=== PATIENT | female | born 1950 | race Caucasian/White ===

== ENCOUNTER → 2016-11-15 | Outpatient (CLI) | payer BC, OTHER ==
[~2016-11-15] MED LIST: ACET-1311 PO; ACET500T57 PO; AMLO-110 PO; ATV5X PO; DOXY100C76 PO; LORA-741 PO; MISCCAP80 PO; NRV/5 PO; OMEG10007 PO; OREGCAP PO; PANT40TA PO; PRT/40 PO; RIVA1TAB4 PO; RIVA1TAB7 PO; TRAM-10 PO; VITAMIN D PO
== END | disposition home or self-care (01) ==
LOC: C.CPL 12:16
PROVIDERS: ATTEND Orthopaedic Surgery
DX: Z01.810 Encounter for preprocedural cardiovascular examination (principal)

== ENCOUNTER → 2016-11-22 | Outpatient (CLI) | payer BC, OTHER ==
--- NOTE | 2016-11-22 14:18 | DIAGNOSTIC IMAGING REPORT ---
CHEST 2 VIEWS ROUTINE CLINICAL HISTORY: R05 [id number] COMPARISON STUDY: 05/12/2016 FINDINGS: The cardiac and mediastinal contours are normal. There is no evidence of focal pulmonary consolidation. There is no evidence of failure. No pleural effusions are visualized.[ IMPRESSION: No active disease in the chest. Electronically signed by: Carson Suresh M.D. 11/22/2016 2:17 PM Dictated Date/Time: 11/22/2016 2:17 PM
== END | disposition home or self-care (01) ==
LOC: C.RADBC 13:57
PROVIDERS: ATTEND Internal Medicine
DX: R05 Cough (principal)

== ENCOUNTER → 2016-11-26 | Outpatient (CLI) | payer BC, OTHER ==
--- NOTE | 2016-11-26 14:56 | DIAGNOSTIC IMAGING REPORT ---
Venous Doppler right leg RIGHT VENOUS DOPP LOWER EXT UNILAT CLINICAL HISTORY: RT LEG PAIN,SWELLING,R/O DVT Right pain. Edema. TECHNIQUE: Doppler ultrasound COMPARISON STUDY: None FINDINGS: Normal venous Doppler right leg IMPRESSION: Normal venous Doppler right leg Electronically signed by: Andreas Licona M.D. 11/26/2016 2:54 PM Dictated Date/Time: 11/26/2016 2:54 PM
== END | disposition home or self-care (01) ==
LOC: C.ULTR 14:12
PROVIDERS: ATTEND Orthopaedic Surgery
DX: M79.604 Pain in right leg (principal)

== ENCOUNTER 2017-03-11 12:56 | Emergency (ER) | payer BC, OTHER ==
[~2017-03-11] VITALS: Ht 162.6 cm; Wt 79.7 kg
[~2017-03-11 12:56] MED LIST changes: -ACET500T57 PO; -ATV5X PO; -DOXY100C76 PO; -NRV/5 PO; -PRT/40 PO; -RIVA1TAB4 PO; -RIVA1TAB7 PO; -TRAM-10 PO
[2017-03-11 13:00] VITALS: TEMP 36.7; Ht 162.6 cm; Wt 79.7 kg
[2017-03-11 13:38] LABS: BASO % 0.1 %; BASO ABS # 0.01 K/uL (0-0.2); COMPLETE YES; EOS % 1.4 %; HEMATOCRIT 41.5 % (37-47); IG% 0.1 %; LYMPH % 30.4 %; LYMPH ABS # 2.37 K/uL (1.2-3.4); MEAN CELL VOLUME 90.2 fL (80-100); MEAN CORPUSCULAR HEMOGLOBIN 31.1 pg (25-34); MEAN CORPUSCULAR HGB CONC 34.5 g/dl (32-36); MEAN PLATELET VOLUME 9.4 fL (7.4-10.4); MONO % 5.4 %; NEUT % 62.6 %; PLATELET COUNT 220 K/uL (130-400); WHITE BLOOD COUNT 7.79 K/uL (4.8-10.8)
[2017-03-11 14:02] LABS: URINE APPEARANCE CLEAR (CLEAR); URINE BILIRUBIN NEG (NEG); URINE COLOR YELLOW; URINE NITRITE NEG (NEG); UROBILINOGEN NEG (NEG); ZZUR CULT IF INDIC CLEAN CATCH NO
[2017-03-11 14:04] LABS: ALKALINE PHOSPHATASE 105 U/L (45-117); ALT/SGPT 47 U/L (12-78); BLOOD UREA NITROGEN 15 mg/dl (7-18); BUN/CREATININE RATIO 18.8 (10-20); CARBON DIOXIDE 26 mmol/L (21-32); CHLORIDE 105 mmol/L (98-107); GLUCOSE 106 mg/dl (70-99); SODIUM 140 mmol/L (136-145)
[2017-03-11 14:09] LABS: MANUAL MICROSCOPIC REQUIRED? NO; REVIEW REQ? NO
--- NOTE | 2017-03-11 14:22 | DIAGNOSTIC IMAGING REPORT ---
CT OF THE ABDOMEN AND PELVIS WITHOUT CONTRAST, STONE PROTOCOL CLINICAL HISTORY: Right flank pain. COMPARISON STUDY: CT of the abdomen and pelvis February 15, 2015. TECHNIQUE: Helical axial images of the abdomen and pelvis were obtained without IV or oral contrast according to renal stone protocol. FINDINGS: Fatty infiltration of the liver is noted with areas of sparing. Unenhanced images of the spleen, adrenal glands and pancreas are normal. There is no hydronephrosis. There are no ureteral calculi. There is a possible punctate calculus within the midpole of the right kidney. Postsurgical findings within the spine are noted. This colonic diverticulosis without evidence for acute diverticulitis. The appendix is normal. There is no free fluid. There is no lymphadenopathy. There are suspected postsurgical findings at the base of the bladder. This is unchanged. The ovaries are unchanged in appearance. There is no evidence for a bowel obstruction. There is a small fat-containing umbilical hernia. There are no suspicious osseous lesions. IMPRESSION: 1. No hydronephrosis or ureteral calculi. Possible punctate right renal calculus. 2. Colonic diverticulosis without evidence for acute diverticulitis. Normal appendix. 3. No bowel obstruction. 4. Fatty liver. Electronically signed by: Dylan Saleh M.D. 03/11/2017 2:20 PM Dictated Date/Time: 03/11/2017 2:12 PM
[2017-03-11 15:20] LABS: CALCIUM 8.8 mg/dl (8.5-10.1)
--- NOTE | 2017-03-11 19:02 | DIAGNOSTIC IMAGING REPORT ---
ULTRASOUND VENOUS DOPPLER LWR EXT BILA CLINICAL HISTORY: Leg swelling COMPARISON STUDY: 11/26/2016, 09/14/2007 FINDINGS: On the right, no intraluminal thrombus was visualized. The veins were fully compressible from the groin to the popliteal vein. There was normal color-flow within the proximal trifurcation veins of the right calf. On the left, no thrombus was visualized within the common femoral superficial femoral or popliteal veins. No thrombus was identified within the posterior tibial, or anterior tibial veins. There is thrombus within one of the paired peroneal veins. IMPRESSION: 1. No evidence of right lower extremity DVT 2. Left calf peroneal vein thrombus. Electronically signed by: Carson Suresh M.D. 03/11/2017 7:00 PM Dictated Date/Time: 03/11/2017 6:57 PM
[2017-03-11] MEDS ORDERED: LORAZEPAM 2 MG/ML 1 ML VIAL IV STA (19:15)
--- NOTE | 2017-03-11 20:30 | DIAGNOSTIC IMAGING REPORT ---
NUCLEAR MEDICINE VENTILATION/PERFUSION STUDY. CLINICAL HISTORY: Right-sided chest pain, positive d-dimer, calf DVT. COMPARISON STUDY: Chest x-ray dated 11/22/2016 FINDINGS: The patient was ventilated utilizing 29.2 mCi of technetium 99m DTPA aerosol. The patient was perfused utilizing 6 mCi of technetium 99m MAA. There are small peripheral right bite perfusion defects most pronounced within the left lung. Given their small size it is difficult to determine whether these are matched. There are no large VQ mismatches. This examination is of intermediate probability for pulmonary embolism. IMPRESSION: Intermediate probability of acute pulmonary embolism. Electronically signed by: Carson Suresh M.D. 03/11/2017 8:28 PM Dictated Date/Time: 03/11/2017 8:26 PM
[2017-03-11] MEDS ORDERED: RIVAROXABAN TAB 15 MG TAB PO STA (20:48)
[2017-03-11] MEDS ORDERED: RIVA1TAB7 PO (20:54)
[2017-03-11] MEDS ORDERED: TRAM-10 PO (20:54)
--- NOTE | 2017-03-11 20:59 | EMERGENCY ROOM VISIT NOTE ---
History Report prepared by Arnoldo: Grace Guerin Under the Supervision of: Dr. Jefry Tovar M.D. First contact with patient: 13:09 Chief Complaint: ABDOMINAL PAIN Stated Complaint: POSSIBLE KIDNEY STONE History of Present Illness The patient is a 66 year old female who presents to the Emergency Room with complaints of waxing and waning right flank pain starting a few days ago. She reports nausea but denies vomiting. She reports the nausea has improved. She currently reports only minimal pain. She currently describes her pain to be cramping. She has a history of muscle spasms in the back but denies any similar symptoms today. She has some improvement in her symptoms with lying down flat. She has worsening pain with movement. The patient denies any history of kidney stones. She has been having some difficulty breathing with exertion but suspects it may be due to the recent weight gain and lack of exercise over the past few months. She denies any worsening pain with deep breathing. The patient also reports increased tiredness. The patient had knee surgery in November and reduced the amount of normal activity. Pt denies any recent trauma, LOC, headache, fevers, chills, diaphoresis, visual changes, neck pain, chest pain, melena, hematochezia, urinary symptoms, numbness, weakness, lymphadenopathy, rash, or other complaints. Source of History: patient Onset: a few days ago Position: other (right flank pain) Symptom Intensity: minimal Quality: cramping Timing: waxes/wanes Modifying Factors (Worsening): movement Modifying Factors (Relieving): other (lying down flat) Associated Symptoms: + SOB, + nausea Review of Systems See HPI for pertinent positives and negatives. A total of ten systems were reviewed and were otherwise negative. Past Medical & Surgical Medical Problems: (1) bladder sling (2) Lumbar decompression Surgical Problems: (1) H/O: hysterectomy Family History No significant family history Social History Smoking Status: Never Smoker Alcohol Use: occasionally Marital Status: Housing Status: lives with significant other Occupation Status: employed Current/Historical Medications Scheduled Amlodipine (Norvasc), 5 MG PO QAM Fish Oil ([place]-3), 1 CAP PO QAM Oregano (Oil Of Oregano), 1 CAP PO QAM Pantoprazole (Protonix), 40 MG PO QAM Probiotic Product (Probiotic), 1 CAP PO QAM Rivaroxaban (Xarelto Starter Pack 15 & 20 mg), 1 TAB PO UD Scheduled PRN Acetaminophen (Tylenol), 650 MG PO Q6 PRN for Pain Lorazepam (Ativan), 0.5 MG PO HS PRN for Sleep Tramadol (Ultram), 50 MG PO Q4H PRN for Pain Allergies Coded Allergies: Ciprofloxacin (Verified Adverse Reaction, Unknown, NAUSEA, UPSET STOMACH, 03/11/17) NSAIDs (Verified Adverse Reaction, Unknown, GI UPSET, 03/11/17) CAN TAKE TYLENOL Uncoded Nonscreenable Allergen (Verified Adverse Reaction, Unknown, HYPERSENSITIVITY TO A LIST OF DRUGS, 03/11/17) PT HYPERSENSITIVE TO KESHAWN NARCOTIC PAIN MEDICATIONS AMONG A LIST OF OTHERS. PT CAN NOT LIST ALL OF THEM Physical Exam Vital Signs Date Time Temp Pulse Resp B/P (MAP) Pulse Ox O2 Delivery O2 Flow Rate FiO2 03/11/17 18:25 7 16 165/110 97 Room Air 03/11/17 18:00 88 16 156/106 94 Room Air 03/11/17 17:05 81 16 146/98 97 Room Air 03/11/17 16:06 90 20 150/105 94 Room Air 03/11/17 14:56 81 20 132/96 85 139/99 87 132/99 03/11/17 13:00 36.7 95 18 148/96 96 Room Air Physical Exam GENERAL: Awake, alert, mildly uncomfortable-appearing, in no distress HENT: Normocephalic, atraumatic. Oropharynx unremarkable. EYES: Normal conjunctiva. Sclera non-icteric. NECK: Supple. No nuchal rigidity. FROM. No JVD. RESPIRATORY: Clear to auscultation. CARDIAC: Regular rate, normal rhythm. Extremities warm and well perfused. Pulses equal. ABDOMEN: Soft, non-distended. No tenderness to palpation. No rebound or guarding. No masses. RECTAL: Deferred. MUSCULOSKELETAL: Chest examination reveals no tenderness. The back is symmetrical on inspection without obvious abnormality. Right CVA tenderness to palpation. No joint edema. LOWER EXTREMITIES: Calves are equal size bilaterally and non-tender. No edema. No discoloration. NEURO: Normal sensorium. No sensory or motor deficits noted. SKIN: No rash or jaundice noted. Medical Decision & Procedures ER Provider Diagnostic Interpretation: CT US: Radiology results as stated below per my review and radiologist interpretation ULTRASOUND VENOUS DOPPLER LWR EXT BILA CLINICAL HISTORY: Leg swelling COMPARISON STUDY: 11/26/2016, 09/14/2007 FINDINGS: On the right, no intraluminal thrombus was visualized. The veins were fully compressible from the groin to the popliteal vein. There was normal color-flow within the proximal trifurcation veins of the right calf. On the left, no thrombus was visualized within the common femoral superficial femoral or popliteal veins. No thrombus was identified within the posterior tibial, or anterior tibial veins. There is thrombus within one of the paired peroneal veins. IMPRESSION: 1. No evidence of right lower extremity DVT 2. Left calf peroneal vein thrombus. Electronically signed by: Carson Suresh M.D. 03/11/2017 7:00 PM Dictated Date/Time: 03/11/2017 6:[address] OF THE ABDOMEN AND PELVIS WITHOUT CONTRAST, STONE PROTOCOL CLINICAL HISTORY: Right flank pain. COMPARISON STUDY: CT of the abdomen and pelvis February 15, 2015. TECHNIQUE: Helical axial images of the abdomen and pelvis were obtained without IV or oral contrast according to renal stone protocol. FINDINGS: Fatty infiltration of the liver is noted with areas of sparing. Unenhanced images of the spleen, adrenal glands and pancreas are normal. There is no hydronephrosis. There are no ureteral calculi. There is a possible punctate calculus within the midpole of the right kidney. Postsurgical findings within the spine are noted. This colonic diverticulosis without evidence for acute diverticulitis. The appendix is normal. There is no free fluid. There is no lymphadenopathy. There are suspected postsurgical findings at the base of the bladder. This is unchanged. The ovaries are unchanged in appearance. There is no evidence for a bowel obstruction. There is a small fat-containing umbilical hernia. There are no suspicious osseous lesions. IMPRESSION: 1. No hydronephrosis or ureteral calculi. Possible punctate right renal calculus. 2. Colonic diverticulosis without evidence for acute diverticulitis. Normal appendix. 3. No bowel obstruction. 4. Fatty liver. Electronically signed by: Dylan Saleh M.D. 03/11/2017 2:20 PM Dictated Date/Time: 03/11/2017 2:12 PM NUCLEAR MEDICINE VENTILATION/PERFUSION STUDY. CLINICAL HISTORY: Right-sided chest pain, positive d-dimer, calf DVT. COMPARISON STUDY: Chest x-ray dated 11/22/2016 FINDINGS: The patient was ventilated utilizing 29.2 mCi of technetium 99m DTPA aerosol. The patient was perfused utilizing 6 mCi of technetium 99m MAA. There are small peripheral right bite perfusion defects most pronounced within the left lung. Given their small size it is difficult to determine whether these are matched. There are no large VQ mismatches. This examination is of intermediate probability for pulmonary embolism. IMPRESSION: Intermediate probability of acute pulmonary embolism. Laboratory Results 03/11/17 13:17 Red Blood Count 4.60, Mean Corpuscular Volume 90.2, Mean Corpuscular Hemoglobin 31.1, Mean Corpuscular Hemoglobin Concent 34.5, Mean Platelet Volume 9.4, Neutrophils (%) (Auto) 62.6, Lymphocytes (%) (Auto) 30.4, Monocytes (%) (Auto) 5.4, Eosinophils (%) (Auto) 1.4, Basophils (%) (Auto) 0.1, Neutrophils # (Auto) 4.87, Lymphocytes # (Auto) 2.37, Monocytes # (Auto) 0.42, Eosinophils # (Auto) 0.11, Basophils # (Auto) 0.01 03/11/17 13:17 Test 03/11/17 13:17 03/11/17 15:24 White Blood Count 7.79 K/uL (4.8-10.8) Red Blood Count 4.60 M/uL (4.2-5.4) Hemoglobin 14.3 g/dL (12.0-16.0) Hematocrit 41.5 % (37-47) Mean Corpuscular Volume 90.2 fL (80-100) Mean Corpuscular Hemoglobin 31.1 pg (25-34) Mean Corpuscular Hemoglobin Concent 34.5 g/dl (32-36) Platelet Count 220 K/uL (130-400) Mean Platelet Volume 9.4 fL (7.4-10.4) Neutrophils (%) (Auto) 62.6 % Lymphocytes (%) (Auto) 30.4 % Monocytes (%) (Auto) 5.4 % Eosinophils (%) (Auto) 1.4 % Basophils (%) (Auto) 0.1 % Neutrophils # (Auto) 4.87 K/uL (1.4-6.5) Lymphocytes # (Auto) 2.37 K/uL (1.2-3.4) Monocytes # (Auto) 0.42 K/uL (0.11-0.59) Eosinophils # (Auto) 0.11 K/uL (0-0.5) Basophils # (Auto) 0.01 K/uL (0-0.2) RDW Standard Deviation 41.8 fL (36.4-46.3) RDW Coefficient of Variation 12.7 % (11.5-14.5) Immature Granulocyte % (Auto) 0.1 % Immature Granulocyte # (Auto) 0.01 K/uL (0.00-0.02) Urine Color YELLOW Urine Appearance CLEAR (CLEAR) Urine pH 6.0 (4.5-7.5) Urine Specific Points 1.010 (1.000-1.030) Urine Protein NEG (NEG) Urine Glucose (UA) NEG (NEG) Urine Ketones NEG (NEG) Urine Occult Blood NEG (NEG) Urine Nitrite NEG (NEG) Urine Bilirubin NEG (NEG) Urine Urobilinogen NEG (NEG) Urine Leukocyte Esterase NEG (NEG) Anion Gap 9.0 mmol/L (3-11) Est Creatinine Clear Calc Drug Dose 72.6 ml/min Estimated GFR () 90.3 Estimated GFR (Non- 77.9 BUN/Creatinine Ratio 18.8 (10-20) Calcium Level 8.8 mg/dl (8.5-10.1) Total Bilirubin 0.5 mg/dl (0.2-1) Direct Bilirubin mg/dl (0-0.2) Aspartate Amino Transf (AST/SGOT) U/L (15-37) Alanine Aminotransferase (ALT/SGPT) 47 U/L (12-78) Alkaline Phosphatase 105 U/L (45-117) Total Protein 8.1 gm/dl (6.4-8.2) Albumin 3.8 gm/dl (3.4-5.0) Lipase 282 U/L (73-393) Bedside D-Dimer > 450 ng/mlFEU (0-450) Laboratory results reviewed by me Medications Administered Medications (Trade) Dose Ordered Sig/Jennie Route Start Time Stop Time Status Last Admin Dose Admin Lorazepam (Ativan Inj) 0.5 mg NOW STAT IV 03/11/17 19:15 03/11/17 19:16 DC 03/11/17 19:23 0.5 MG Rivaroxaban (Xarelto Tab) 15 mg NOW STAT PO 03/11/17 20:48 03/11/17 20:51 DC 03/11/17 21:02 15 MG Tramadol HCl (Ultram Home Pack) 1 [facility] UD ONCE PO 03/11/17 21:00 03/11/17 21:01 DC 03/11/17 21:03 1 [facility] ED Course 1309: The patient was evaluated in room C02B. A complete history and physical exam was performed. Medication Reconciliation: I attest that I have personally reviewed the patient' s current medication list Blood pressure screening: Patient was found to have an elevated blood pressure and was referred to their primary doctor for recheck and further treatment. 0: I reevaluated the patient. I had a long conversation about the patient because she refused the CT scan. She has a family history of stroke. I talked to radiology who reported that a VQ scan could be performed at 7 pm. She is agreeable to doing the VQ scan. 1914: Ativan Inj 0.5 mg IV. I reevaluated the patient. She is agreeable to a VQ scan. 0: The patient was reassessed. She is feeling much better. Discussed treatment with Xarelto as an outpatient. Also discussed minimal use of tramadol for pain control. The patient was in agreement. She will follow up with primary office tomorrow to set up follow-up appointment. I did discuss risks and benefits of anticoagulation. I gave my usual and customary discussion regarding this issue. Return instructions were outlined and the patient was discharged in stable condition. 2106: Reassessed patient just prior to discharge to answer several questions for her. She is comfortable at this time with the treatment plan and will follow-up promptly in the office for continued management and ongoing care of the current issues. Medical Decision Triage Nursing notes reviewed. The patient's presentation and history were concerning for flank pain. Etiologies such as renal colic, appendicitis, diverticulitis, mesenteric ischemia, aortic pathology, infections, inflammatory bowel disease, PUD, biliary pathology, UTI, PE as well as others were entertained. The patient was evaluated. She came in complaining of possible kidney stone and flank pain. Her symptoms seemed somewhat muscular in nature and she denied any significant pulmonary symptoms. She underwent blood work, urinalysis and imaging. Her CBC, chemistry panel, LFTs, lipase and urinalysis were unremarkable. Her CT scan did reveal a punctate right renal calculus but did not reveal any evidence of ureterolithiasis. On further discussion the patient does note some shortness of breath but the like she was deconditioned from her surgery several months ago. The patient did not have any stigmata of DVT and it was felt that a screening d-dimer would be very reasonable as she had normal vital signs. The patient had a positive d-dimer. This necessitated further workup. The patient was adamantly opposed to a CT pulmonary angiogram because of fears of a anaphylactic-like reaction to the dye. I spent a significant amount of time talking with her and she would not agree to the CT PE study. I was able to get her to agree to a ultrasound and VQ scan after lengthy discussion. The ultrasound was performed and did reveal a clot in the peroneal vein. Because of this the patient was then agreeable to VQ scan. This was indeterminate probability. As she is hemodynamically stable and desires discharge she would be a good candidate for xarelto. I discussed this at length with the patient and her . The patient was given a information starter pack. She was started on 15 mg and was given a prescription for the starter pack. The patient was given a tramadol home pack and prescription was sent as she did request something for pain if she has increased discomfort. As she has no significant pulmonary symptoms and minimal findings on ultrasonography the patient is an excellent candidate for outpatient treatment. Again the back symptoms seemed to be more musculoskeletal. If the patient worsens in any way she will be back to the emergency department. Bleeding precautions were given. The patient was told to stay away from any NSAIDs and aspirin. She has no other contraindications to the medication. I gave my usual and customary discussion regarding this issue. Impression Primary Impression: Blood clot in vein Additional Impressions: Indeterminate ventilatory defect Right flank pain Scribe Attestation The scribe's documentation has been prepared under my direction and personally reviewed by me in its entirety. I confirm that the note above accurately reflects all work, treatment, procedures, and medical decision making performed by me. Departure Information Dispostion Home / Self-Care Prescriptions Tramadol (Ultram) 50 Mg Tab 50 MG PO Q4H Y for Pain, #14 TAB Prov: Jefry Tovar MD 03/11/17 Rivaroxaban (Xarelto Starter Pack 15 & 20 mg) 1 Tab Tab 1 TAB PO UD for 30 Days, #1 BOX Prov: Jefry Tovar MD 03/11/17 Referrals Brooks Roberts M.D. (PCP) Patient Instructions ED DVT, Embolism Pulmonary Dc, My [facility] Additional Instructions Start the Xarelto blood thinner as discussed. It is 15 mg twice a day for 21 days. After this started 20 mg once a day and then this should be continued by your primary physician for treatment. Warm compresses for 20 minutes at a time four times daily for 2-3 days. Tylenol: Take 1000 mg every 6 hours as needed for pain. Do not take more than 3000 mg in a 24 hour period. Tramadol 50 mg: Take one pill every four hours as needed for breakthrough pain. Avoid alcohol, operating machinery or dangerous equipment, working on ladders or roofs, DRIVING, or situations where being under the influence may be dangerous. It is recommended to use a stool softener such as Colace, 100mg twice daily while taking this medication to avoid constipation. Review the package insert for all your medications. This is necessary as important health information is provided for your benefit and current care. Continue current medications. Return to the ER for worsening back pain, bleeding problems, chest pain, difficulty breathing, fevers, vomiting, worsening of your condition, or as needed. Follow-up with your primary physician tomorrow to establish follow-up care. Work Instructions Return To Work: 3 days Problem Qualifiers
[2017-03-11] MEDS ORDERED: TRAMADOL HCL 50 MG HOME PACK PO ONE (21:00)
[2017-03-11 21:03] VITALS: BP 156/112; PULSE 89; O2SAT 95
[2017-05-11] MEDS ORDERED: PANT40TA2 PO (21:38)
== END 2017-03-11 21:14 | disposition home or self-care (01) ==
LOC: C.EDB 12:58 → C.EDC 21:14
DX: I82.812 Embolism and thrombosis of superficial veins of left lower extremity (principal); J98.4 Other disorders of lung; R10.9 Unspecified abdominal pain; Z79.899 Other long term (current) drug therapy

== ENCOUNTER → 2017-03-15 | Outpatient (CLI) | payer OTHER ==
[~2017-03-15] MED LIST changes: +ACET500T57 PO; +ATV5X PO; +DOXY100C76 PO; +NRV/5 PO; +PANT40TA2 PO; +RIVA1TAB4 PO; +RIVA1TAB7 PO; +TRAM-10 PO; -VITAMIN D PO
[2017-03-18 01:39] LABS: LUPUS ANTICOAGULANT** TC36573X Negative (Negative)
== END | disposition home or self-care (01) ==
LOC: C.LAB 11:49
PROVIDERS: ATTEND Internal Medicine Hematology
DX: D68.59 Other primary thrombophilia (principal)

== ENCOUNTER → 2017-04-08 | Outpatient (CLI) | payer OTHER ==
[~2017-04-08] MED LIST changes: -PANT40TA2 PO; +PRT/40 PO
--- NOTE | 2017-04-08 12:41 | DIAGNOSTIC IMAGING REPORT ---
HEAD WITHOUT CONTRAST (CT) HISTORY: I82.409 DVT of leg (deep venous thrombosis)R51 [id number] TECHNIQUE: Multiple axial CT images of the head were obtained without contrast. COMPARISON: MRI brain 02/26/2010. FINDINGS: No acute intracranial hemorrhage, midline shift, mass, large territorial ischemia or abnormal extra-axial collection. There is mild central atrophy. Patchy areas of low-attenuation are seen within the periventricular white matter of the cerebral hemispheres bilaterally. There is somewhat increased attenuation of the vessels at the level of the [place] symmetrically suggesting hemoconcentration. The calvarium is intact. The paranasal sinuses, mastoid air cells, and middle ear cavities are clear. IMPRESSION: 1. No acute intracranial abnormality. 2. Age-related changes of mild cerebral atrophy and chronic microvascular ischemic changes. Electronically signed by: Toribio Coronel 04/08/2017 12:40 PM Dictated Date/Time: 04/08/2017 12:36 PM
== END | disposition home or self-care (01) ==
LOC: C.CTS 11:56
PROVIDERS: ATTEND Internal Medicine
DX: I82.409 Acute embolism and thrombosis of unspecified deep veins of unspecified lower extremity (principal); R51 Headache; Z79.01 Long term (current) use of anticoagulants

== ENCOUNTER → 2017-05-02 | Outpatient (CLI) | payer OTHER ==
--- NOTE | 2017-05-02 15:42 | MAMMOGRAPHY REPORT ---
BILATERAL DIGITAL SCREENING MAMMOGRAM WITH CAD: 05/02/2017 CLINICAL HISTORY: Routine screening. TECHNIQUE: Bilateral CC and MLO views were obtained. Current study was also evaluated with a Compute r Aided Detection (CAD) system. COMPARISON: Comparison is made to exams dated: 02/25/2016 mammogram, 10/09/2014 mammogram, 07/04/2013 ma mmogram, 06/07/2012 mammogram, 06/02/2011 mammogram, and 06/03/2010 mammogram - [facility] er. BREAST COMPOSITION: There are scattered areas of fibroglandular density in both breasts. FINDINGS: There are stable benign-appearing left breast calcifications. No new suspicious mass, arch itectural distortion or cluster of microcalcifications is seen. IMPRESSION: ACR BI-RADS CATEGORY 1: NEGATIVE There is no mammographic evidence of malignancy. A 1 year screening mammogram is recommended. The pa tient will receive written notification of the results. Approximately 10% of breast cancers are not detected with mammography. A negative mammographic report should not delay biopsy if a clinically suggestive mass is present. Angela Renae M.D. ay/:05/02/2017 14:45:00 Decision Unit Rn: Pilo Aquino RT(R)(M), [facility] letter sent: Normal 1/2 BI-RADS Code: ACR BI-RADS Category 1: Negative
== END | disposition home or self-care (01) ==
LOC: C.MAMM 14:21
PROVIDERS: ATTEND Internal Medicine
DX: Z12.31 Encounter for screening mammogram for malignant neoplasm of breast (principal)

== ENCOUNTER 2017-05-11 19:36 | Observation (INO) | payer BC, OTHER ==
[~2017-05-11] VITALS: Ht 162.6 cm; Wt 76.5 kg
[~2017-05-11 19:36] MED LIST changes: -ACET500T57 PO; -ATV5X PO; -DOXY100C76 PO; -NRV/5 PO; -PRT/40 PO; -RIVA1TAB4 PO
[2017-05-11 19:38] VITALS: Ht 162.6 cm; Wt 76.5 kg
[2017-05-11] MEDS ORDERED: ACETAMINOPHEN IV 100 ML IV STA (20:08)
[2017-05-11] MEDS ORDERED: PROMETHAZINE HCL INJ 25 MG in SODIUM CHLORIDE 0.9% 50ML 50 ML IV STA (20:12)
[2017-05-11 20:18] LABS: BASO % 0.1 %; BASO ABS # 0.01 K/uL (0-0.2); COMPLETE YES; EOS % 0.5 %; HEMATOCRIT 40.4 % (37-47); IG% 0.1 %; LYMPH % 41.2 %; LYMPH ABS # 3.39 K/uL (1.2-3.4); MEAN CELL VOLUME 89.6 fL (80-100); MEAN CORPUSCULAR HEMOGLOBIN 30.6 pg (25-34); MEAN CORPUSCULAR HGB CONC 34.2 g/dl (32-36); MEAN PLATELET VOLUME 8.9 fL (7.4-10.4); MONO % 6.7 %; NEUT % 51.4 %; PLATELET COUNT 210 K/uL (130-400); RED BLOOD COUNT 4.51 M/uL (4.2-5.4); WHITE BLOOD COUNT 8.22 K/uL (4.8-10.8)
[2017-05-11 20:24] LABS: URINE APPEARANCE CLEAR (CLEAR); URINE BILIRUBIN NEG (NEG); URINE COLOR YELLOW; URINE NITRITE NEG (NEG); URINE SPECIFIC GRAVITY 1.009 (1.000-1.030); UROBILINOGEN NEG (NEG)
[2017-05-11 20:28] LABS: ISTAT CREATININE 0.6 mg/dl (0.6-1.3); ISTAT HEMOGLOBIN 13.9 g/dl (12.0-16.0); ISTAT IONIZED CALCIUM 1.13 mmol/l (1.12-1.32)
[2017-05-11 20:36] LABS: BUN/CREATININE RATIO 14.9 (10-20); CALCIUM 8.9 mg/dl (8.5-10.1); CREATININE 0.73 mg/dl (0.60-1.20); POTASSIUM 3.8 mmol/L (3.5-5.1)
[2017-05-11 20:47] LABS: THYROID STIMULATING HORMONE 0.931 uIu/ml (0.300-4.500)
[2017-05-11 20:55] LABS: MANUAL MICROSCOPIC REQUIRED? NO; REVIEW REQ? NO
--- NOTE | 2017-05-11 21:13 | DIAGNOSTIC IMAGING REPORT ---
CHEST ONE VIEW PORTABLE CLINICAL HISTORY: severe hypertension COMPARISON STUDY: 11/22/2016 FINDINGS: The cardiac and mediastinal contours are normal. There is no evidence of focal pulmonary consolidation. There is no evidence of failure. No pleural effusions are visualized.[ There is an opacity at the level of the left cardiophrenic angle which is felt to represent a fat pad and or atelectatic change. IMPRESSION: No active disease in the chest. Electronically signed by: Carson Suresh M.D. 05/11/2017 9:12 PM Dictated Date/Time: 05/11/2017 9:12 PM
--- NOTE | 2017-05-11 21:13 | DIAGNOSTIC IMAGING REPORT ---
CT HEAD WITHOUT CONTRAST (CT) CLINICAL HISTORY: Severe headache. Patient on anticoagulation. COMPARISON STUDY: 04/08/2017 TECHNIQUE: Axial CT of the brain is performed from the vertex to the skull base. IV contrast was not administered for this examination. A dose lowering technique was utilized adhering to the principles of ALARA. CT DOSE: 537.48 mGy.cm FINDINGS: No intra or extra-axial mass lesions are visualized. There is no CT evidence of acute cortical infarction. There is no evidence of midline shift. There is no acute hemorrhage. No calvarial fractures are visualized. There are moderate white matter hypodensities likely on a small vessel basis. There is no evidence of pathologic ventricular dilatation. There is no evidence of acute sinusitis IMPRESSION: No acute intracranial findings Electronically signed by: Carson Suresh M.D. 05/11/2017 9:11 PM Dictated Date/Time: 05/11/2017 9:10 PM
[2017-05-11 21:17] LABS: INR 1.1 (0.9-1.1); PARTIAL THROMBOPLASTIN RATIO 1.2; PROTHROMBIN TIME (PATIENT) 11.4 SECONDS (9.0-12.0)
[2017-05-11] MEDS ORDERED: ATV5X PO (21:38)
[2017-05-11] MEDS ORDERED: RIVA1TAB4 PO (21:38)
[2017-05-11] MEDS ORDERED: NRV/5 PO (21:38)
[2017-05-11] MEDS ORDERED: PRT/40 PO (21:38)
[2017-05-11] MEDS ORDERED: ACET500T57 PO (21:40)
[2017-05-11] MEDS ORDERED: LORAZEPAM 2 MG/ML 1 ML VIAL IV STA (22:05)
[2017-05-11] MEDS ORDERED: FENTANYL CITRATE INJ 50 MCG/1 ML 2 ML VIAL IV STA (23:19)
--- NOTE | 2017-05-11 23:58 | Medical Consult ---
Consultation Date of Consultation: May 11, 2017. Attending Physician: Past Medical/Surgical History Medical Problems: (1) Blood clot in vein Status: Acute (2) Indeterminate ventilatory defect Status: Acute (3) Right flank pain Status: Acute Family History No significant family history Social History Smoking Status: Former Smoker Marital Status: Housing Status: lives with significant other Occupation Status: employed Allergies Coded Allergies: Ciprofloxacin (Verified Adverse Reaction, Unknown, NAUSEA, UPSET STOMACH, 03/11/17) NSAIDs (Verified Adverse Reaction, Unknown, GI UPSET, 03/11/17) CAN TAKE TYLENOL Uncoded Nonscreenable Allergen (Verified Adverse Reaction, Unknown, HYPERSENSITIVITY TO A LIST OF DRUGS, 03/11/17) PT HYPERSENSITIVE TO KESHAWN NARCOTIC PAIN MEDICATIONS AMONG A LIST OF OTHERS. PT CAN NOT LIST ALL OF THEM Physical Exam Date Time Temp Pulse Resp B/P (MAP) Pulse Ox O2 Delivery O2 Flow Rate FiO2 05/11/17 23:42 90 18 143/106 93 Room Air 05/11/17 23:10 94 18 131/108 96 Room Air 05/11/17 21:28 94 156/105 95 05/11/17 21:28 95 Room Air 05/11/17 19:38 36.8 95 18 170/112 95 Room Air Laboratory Results Last 24 Hours Test 05/11/17 20:00 05/11/17 20:15 White Blood Count 8.22 K/uL Red Blood Count 4.51 M/uL Hemoglobin 13.8 g/dL Hematocrit 40.4 % Mean Corpuscular Volume 89.6 fL Mean Corpuscular Hemoglobin 30.6 pg Mean Corpuscular Hemoglobin Concent 34.2 g/dl Platelet Count 210 K/uL Mean Platelet Volume 8.9 fL Neutrophils (%) (Auto) 51.4 % Lymphocytes (%) (Auto) 41.2 % Monocytes (%) (Auto) 6.7 % Eosinophils (%) (Auto) 0.5 % Basophils (%) (Auto) 0.1 % Neutrophils # (Auto) 4.22 K/uL Lymphocytes # (Auto) 3.39 K/uL Monocytes # (Auto) 0.55 K/uL Eosinophils # (Auto) 0.04 K/uL Basophils # (Auto) 0.01 K/uL RDW Standard Deviation 41.6 fL RDW Coefficient of Variation 12.8 % Immature Granulocyte % (Auto) 0.1 % Immature Granulocyte # (Auto) 0.01 K/uL Prothrombin Time 11.4 SECONDS Prothromb Time International Ratio 1.1 Activated Partial Thromboplast Time 30.7 SECONDS Partial Thromboplastin Ratio 1.2 Urine Color YELLOW Urine Appearance CLEAR Urine pH 8.0 Urine Specific [place] 1.009 Urine Protein NEG Urine Glucose (UA) NEG Urine Ketones NEG Urine Occult Blood NEG Urine Nitrite NEG Urine Bilirubin NEG Urine Urobilinogen NEG Urine Leukocyte Esterase NEG Sodium Level 140 mmol/L Potassium Level 3.8 mmol/L Chloride Level 104 mmol/L Carbon Dioxide Level 29 mmol/L Anion Gap 7.0 mmol/L 16.0 mmol/L Blood Urea Nitrogen 11 mg/dl Creatinine 0.73 mg/dl Est Creatinine Clear Calc Drug Dose 78.9 ml/min Estimated GFR () 100.9 Estimated GFR (Non- 87.0 BUN/Creatinine Ratio 14.9 Random Glucose 101 mg/dl Calcium Level 8.9 mg/dl Total Bilirubin 0.5 mg/dl Direct Bilirubin 0.1 mg/dl Aspartate Amino Transf (AST/SGOT) 32 U/L Alanine Aminotransferase (ALT/SGPT) 41 U/L Alkaline Phosphatase 108 U/L Total Protein 8.1 gm/dl Albumin 3.8 gm/dl Lipase 320 U/L Thyroid Stimulating Hormone (TSH) 0.931 uIu/ml Bedside Hemoglobin 13.9 g/dl Bedside Hematocrit 41 % Bedside Sodium 140 mEq/L Bedside Potassium 3.7 mEq/L Bedside Chloride 101 mEq/L Bedside Total CO2 28 mEq/l Bedside Blood Urea Nitrogen 11 mg/dl Bedside Creatinine 0.6 mg/dl Bedside Glucose (other) 103 mg/dl Bedside Ionized Calcium (Micha) 1.13 mmol/l Assessment & Plan - MRI brain - MRA brain
--- NOTE | 2017-05-12 00:52 | EMERGENCY ROOM VISIT NOTE ---
History Report prepared by Arnoldo: Shante Chavez Under the Supervision of: Dr. Jefry Tovar M.D. First contact with patient: 19:47 Chief Complaint: HEADACHE Stated Complaint: UNBEARABLE HEADACHE BP 160/107- REFERRED History of Present Illness The patient is a 66 year old female who presents to the Emergency Room with complaints of a constant headache that began this morning. The patient states that she has had a headache all day and took Tylenol this morning and about 5 hours ago without relief of her symptoms. She reports that she called Dr. Roberts's office and was advised not to take 2 Advil and to come into the ED. She notes that she was seen here 2 months ago with a DVT and has been on Xarelto since then. The patient complains of hypertension and nausea. Pt denies LOC, fevers, chills, diaphoresis, visual changes, neck pain, chest pain, breathing difficulties, nausea, vomiting, abdominal pain, back pain, melena, hematochezia, urinary symptoms, numbness, weakness, lymphadenopathy, rash, recent bites, injury, or other complaints. She notes that she does not have any history of migraines. Source of History: patient Onset: this morning Position: head Quality: ache Timing: constant Associated Symptoms: + nausea Note: Pt notes hypertension. Review of Systems See HPI for pertinent positives and negatives. A total of ten systems were reviewed and were otherwise negative. Past Medical & Surgical Medical Problems: (1) bladder sling (2) Lumbar decompression Surgical Problems: (1) H/O: hysterectomy Family History No significant family history Social History Smoking Status: Former Smoker Alcohol Use: occasionally Marital Status: Housing Status: lives with significant other Occupation Status: employed Current/Historical Medications Scheduled Amlodipine Besylate (Amlodipine Besylate), 5 MG PO QAM Pantoprazole (Pantoprazole Sodium), 40 MG PO QAM Rivaroxaban (Xarelto), 20 MG PO QAM Scheduled PRN Acetaminophen (Acetaminophen), 1,000 MG PO Q6H PRN for Pain Lorazepam (Lorazepam), 0.5 MG PO HS PRN for Anxiety/Sleep Allergies Coded Allergies: Ciprofloxacin (Verified Adverse Reaction, Unknown, NAUSEA, UPSET STOMACH, 03/11/17) NSAIDs (Verified Adverse Reaction, Unknown, GI UPSET, 03/11/17) CAN TAKE TYLENOL Uncoded Nonscreenable Allergen (Verified Adverse Reaction, Unknown, HYPERSENSITIVITY TO A LIST OF DRUGS, 03/11/17) PT HYPERSENSITIVE TO KESHAWN NARCOTIC PAIN MEDICATIONS AMONG A LIST OF OTHERS. PT CAN NOT LIST ALL OF THEM Physical Exam Vital Signs Date Time Temp Pulse Resp B/P (MAP) Pulse Ox O2 Delivery O2 Flow Rate FiO2 05/11/17 23:42 90 18 143/106 93 Room Air 05/11/17 23:10 94 18 131/108 96 Room Air 05/11/17 21:28 94 156/105 95 05/11/17 21:28 95 Room Air 05/11/17 19:38 36.8 95 18 170/112 95 Room Air Physical Exam GENERAL: Awake, alert, uncomfortable appearing HENT: Normocephalic, atraumatic. TM's normal. Oropharynx unremarkable. EYES: PERRL. EOMI. Normal conjunctiva. Sclera non-icteric. NECK: Supple. No nuchal rigidity. FROM. No JVD or bruit. RESPIRATORY: CTA CARDIAC: RRR. No murmur. ABDOMEN: Soft, non distended. No tenderness to palpation. No rebound or guarding. No masses. RECTAL: Deferred. MUSCULOSKELETAL: Unremarkable. No edema. No discoloration. Gross motor strength symmetric. NEURO: Cranial nerves 2-12 grossly intact. Normal sensorium. No sensory or motor deficits noted. Speech normal. No pronator drift. SKIN: No rash or jaundice noted. LYMPH: No adenopathy. Medical Decision & Procedures ER Provider Diagnostic Interpretation: Radiology results as stated below per my review and radiologist interpretation: CHEST ONE VIEW PORTABLE FINDINGS: The cardiac and mediastinal contours are normal. There is no evidence of focal pulmonary consolidation. There is no evidence of failure. No pleural effusions are visualized.[ There is an opacity at the level of the left cardiophrenic angle which is felt to represent a fat pad and or atelectatic change. IMPRESSION: No active disease in the chest. Electronically signed by: Carson Suresh M.D. 05/11/2017 9:12 PM Dictated Date/Time: 05/11/2017 9:[address] HEAD WITHOUT CONTRAST (CT) CT DOSE: 537.48 mGy.cm FINDINGS: No intra or extra-axial mass lesions are visualized. There is no CT evidence of acute cortical infarction. There is no evidence of midline shift. There is no acute hemorrhage. No calvarial fractures are visualized. There are moderate white matter hypodensities likely on a small vessel basis. There is no evidence of pathologic ventricular dilatation. There is no evidence of acute sinusitis IMPRESSION: No acute intracranial findings Electronically signed by: Carson Suresh M.D. 05/11/2017 9:11 PM Dictated Date/Time: 05/11/2017 9:10 PM Laboratory Results 05/11/17 20:00 Red Blood Count 4.51, Mean Corpuscular Volume 89.6, Mean Corpuscular Hemoglobin 30.6, Mean Corpuscular Hemoglobin Concent 34.2, Mean Platelet Volume 8.9, Neutrophils (%) (Auto) 51.4, Lymphocytes (%) (Auto) 41.2, Monocytes (%) (Auto) 6.7, Eosinophils (%) (Auto) 0.5, Basophils (%) (Auto) 0.1, Neutrophils # (Auto) 4.22, Lymphocytes # (Auto) 3.39, Monocytes # (Auto) 0.55, Eosinophils # (Auto) 0.04, Basophils # (Auto) 0.01 05/11/17 20:00 Test 05/11/17 20:00 05/11/17 20:15 White Blood Count 8.22 K/uL (4.8-10.8) Red Blood Count 4.51 M/uL (4.2-5.4) Hemoglobin 13.8 g/dL (12.0-16.0) Hematocrit 40.4 % (37-47) Mean Corpuscular Volume 89.6 fL (80-100) Mean Corpuscular Hemoglobin 30.6 pg (25-34) Mean Corpuscular Hemoglobin Concent 34.2 g/dl (32-36) Platelet Count 210 K/uL (130-400) Mean Platelet Volume 8.9 fL (7.4-10.4) Neutrophils (%) (Auto) 51.4 % Lymphocytes (%) (Auto) 41.2 % Monocytes (%) (Auto) 6.7 % Eosinophils (%) (Auto) 0.5 % Basophils (%) (Auto) 0.1 % Neutrophils # (Auto) 4.22 K/uL (1.4-6.5) Lymphocytes # (Auto) 3.39 K/uL (1.2-3.4) Monocytes # (Auto) 0.55 K/uL (0.11-0.59) Eosinophils # (Auto) 0.04 K/uL (0-0.5) Basophils # (Auto) 0.01 K/uL (0-0.2) RDW Standard Deviation 41.6 fL (36.4-46.3) RDW Coefficient of Variation 12.8 % (11.5-14.5) Immature Granulocyte % (Auto) 0.1 % Immature Granulocyte # (Auto) 0.01 K/uL (0.00-0.02) Prothrombin Time 11.4 SECONDS (9.0-12.0) Prothromb Time International Ratio 1.1 (0.9-1.1) Activated Partial Thromboplast Time 30.7 SECONDS (21.0-31.0) Partial Thromboplastin Ratio 1.2 Urine Color YELLOW Urine Appearance CLEAR (CLEAR) Urine pH 8.0 (4.5-7.5) Urine Specific [place] 1.009 (1.000-1.030) Urine Protein NEG (NEG) Urine Glucose (UA) NEG (NEG) Urine Ketones NEG (NEG) Urine Occult Blood NEG (NEG) Urine Nitrite NEG (NEG) Urine Bilirubin NEG (NEG) Urine Urobilinogen NEG (NEG) Urine Leukocyte Esterase NEG (NEG) Est Creatinine Clear Calc Drug Dose 78.9 ml/min Estimated GFR () 100.9 Estimated GFR (Non- 87.0 BUN/Creatinine Ratio 14.9 (10-20) Calcium Level 8.9 mg/dl (8.5-10.1) Total Bilirubin 0.5 mg/dl (0.2-1) Direct Bilirubin 0.1 mg/dl (0-0.2) Aspartate Amino Transf (AST/SGOT) 32 U/L (15-37) Alanine Aminotransferase (ALT/SGPT) 41 U/L (12-78) Alkaline Phosphatase 108 U/L (45-117) Total Protein 8.1 gm/dl (6.4-8.2) Albumin 3.8 gm/dl (3.4-5.0) Lipase 320 U/L (73-393) Thyroid Stimulating Hormone (TSH) 0.931 uIu/ml (0.300-4.500) Bedside Hemoglobin 13.9 g/dl (12.0-16.0) Bedside Hematocrit 41 % (37-47) Bedside Sodium 140 mEq/L (135-144) Bedside Potassium 3.7 mEq/L (3.3-5.0) Bedside Chloride 101 mEq/L (101-112) Bedside Total CO2 28 mEq/l (24-31) Anion Gap 16.0 mmol/L (16-25) Bedside Blood Urea Nitrogen 11 mg/dl (7-18) Bedside Creatinine 0.6 mg/dl (0.6-1.3) Bedside Glucose (other) 103 mg/dl (70-99) Bedside Ionized Calcium (Micha) 1.13 mmol/l (1.12-1.32) Laboratory results reviewed by me Medications Administered Medications (Trade) Dose Ordered Sig/Jennie Route Start Time Stop Time Status Last Admin Dose Admin Acetaminophen 100 ml @ 400 mls/hr NOW STAT IV 05/11/17 20:08 05/11/17 20:22 DC 05/11/17 20:30 400 MLS/HR Promethazine HCl 25 mg/Sodium Chloride 51 ml @ 204 mls/hr NOW STAT IV 05/11/17 20:12 05/11/17 20:26 DC 05/11/17 20:37 204 MLS/HR Lorazepam (Ativan Inj) 1 mg NOW STAT IV 05/11/17 22:05 05/11/17 22:06 DC 05/11/17 22:22 1 MG ECG Indication: other (headache) Rate (beats per minute): 90 Rhythm: normal sinus Findings: Q waves (Septal), no acute ischemic change, no ectopy ED Course 1999: The patient was evaluated in room A10. A complete history and physical exam was performed. 2008: Acetaminophen 100ml @ 400mls/hr Protocol IV. 2012: Promethazine HCl 25g/Sodium Chloride 51ml @ 204mls/hr IV. 2201: I reevaluated and updated the patietn. 2205: Ativan Inj 1mg IV. 2315: I reevaluated the patient and she is feeling minimally better. 2319: Fentanyl Inj 50mcg IV. 2339: I reevaluated and updated the patient. 2343: Discussed the patient's case [place] [facility] [place] The patient will be evaluated for further treatment and disposition. 3252: Upon reexamination, the patient was doing well. I discussed the test results and treatment plan with her. The patient will be evaluated for further management. Medical Decision Triage Nursing notes reviewed. The patient's presentation and history were concerning for headache. Etiologies such as migraine, tumor, headache, sinus thrombosis, temporal arteritis, sinusitis, CVA, ICH, SAH, infection, as well as others were entertained. The patient was evaluated. She did not have any meningeal findings and she was afebrile. She is uncomfortable. She was moderately hypertensive but this seemed to be situational given her discomfort. Her use of anticoagulation was concerning. I discussed neuro imaging with the patient. I recommended CT with and without contrast. The patient refused CT with contrast as she feels she will have a severe reaction to the contrast. The patient has had similar issues in the past when I have seen her and diagnosed her with a DVT and indeterminant VQ scan. She refused CT dye at that time for the same reasons. She was given IV Tylenol as she refused IV narcotics. The patient was also given Phenergan. She was somewhat anxious and received IV Ativan. On reassessment she was still having headache. Because of her anticoagulation the patient cannot have a lumbar puncture. Her CBC did not reveal a leukocytosis and she had no shift on differential. Her chemistry panel was unremarkable. On reassessment she started headache but her blood pressure was much better. She then accepted a dose of fentanyl but then declined this when nursing came to administer. The patient still seems very uncomfortable and I'm concerned based upon her symptoms. I discussed MRI with the patient and she did not feel that she could complete this because of anxiety. As further evaluation and management will be necessary to complete this patient's workup I did consult with the hospitalist service. The patient was evaluated in the Emergency Room for further management. I did spend a significant amount of time discussing the testing, reasoning, and need for evaluation given her complaints of the severe headache. I gave my usual and customary discussion regarding this issue. Medication Reconcilliation Current Medication List: was personally reviewed by me Blood Pressure Screening Patient's blood pressure: Elevated blood pressure Blood pressure disposition: Referred to PCP Consults Time Called: [phone] Consulting Physician: Dr. Darryn Mills [facility]ed Call: [phone] Discussed the patient's case. The patient will be evaluated for further treatment and disposition. Impression Primary Impression: Headache Scribe Attestation The scribe's documentation has been prepared under my direction and personally reviewed by me in its entirety. I confirm that the note above accurately reflects all work, treatment, procedures, and medical decision making performed by me. Departure Information Dispostion Being Evaluated By Hospitalist Brooks Muir M.D. (PCP) Patient Instructions My [facility]
[2017-05-12] MEDS ORDERED: METHYLPREDNISOLONE 125 MG VIAL IV STA (02:01)
--- NOTE | 2017-05-12 02:12 | History and Physical ---
History & Physical Date & Time of Service: May 12, 2017 at 02:05 Chief Complaint: Unbearable Headache Bp 160/107- Referred Primary Care Physician: Brooks Roberts M.D. History of Present Illness Source: patient Mrs Snyder is a 56-year-old female with history of PE for which she is on Xarelto who presents with a severe headache since 7 AM today. She reports it came on suddenly when she woke up, as all over her head, nothing makes it better or worse. Severity 8/10. She describes it as sharp. She has tried taking Tylenol with no relief. She eventually came to the ED in the evening. She did have significant anxiety and declined getting any sort of workup. She reports that she is unable to take IV contrast, there denies any allergy she reports that something adverse hepato-family member. The ED physician was able to treat her with Ativan, Phenergan, and fluids, and when I saw her she reported feeling essentially bit better. LP was unable to be obtained due to Xarelto. She was agreeable to getting MRI and MRA without contrast. She declined any sort of narcotic pain meds at all times. Past Medical/Surgical History Medical Problems: (1) bladder sling Status: Resolved (2) Lumbar decompression Status: Resolved Surgical Problems: (1) H/O: hysterectomy Status: Resolved Family History No significant family history Social History Smoking Status: Former Smoker Smokeless Tobacco Use: No Alcohol Use: none Drug Use: none Marital Status: Housing status: lives with family Occupational Status: employed Immunizations History of Influenza Vaccine: Unknown History of Tetanus Vaccine?: Unknown History of Pneumococcal: Unknown History of Hepatitis B Vaccine: Unknown Multi-Drug Resistant Organisms History of MDRO: No Allergies Coded Allergies: Ciprofloxacin (Verified Adverse Reaction, Unknown, NAUSEA, UPSET STOMACH, 03/11/17) NSAIDs (Verified Adverse Reaction, Unknown, GI UPSET, 03/11/17) CAN TAKE TYLENOL Uncoded Nonscreenable Allergen (Verified Adverse Reaction, Unknown, HYPERSENSITIVITY TO A LIST OF DRUGS, 03/11/17) PT HYPERSENSITIVE TO KESHAWN NARCOTIC PAIN MEDICATIONS AMONG A LIST OF OTHERS. PT CAN NOT LIST ALL OF THEM Home Medications Scheduled Amlodipine Besylate (Amlodipine Besylate), 5 MG PO QAM Pantoprazole (Pantoprazole Sodium), 40 MG PO QAM Rivaroxaban (Xarelto), 20 MG PO QAM Scheduled PRN Acetaminophen (Acetaminophen), 1,000 MG PO Q6H PRN for Pain Lorazepam (Lorazepam), 0.5 MG PO HS PRN for Anxiety/Sleep Review of Systems See HPI for pertinent positives & negatives. A total of 10 systems reviewed and were otherwise negative. Physical Exam Vital Signs Date Time Temp Pulse Resp B/P (MAP) Pulse Ox O2 Delivery O2 Flow Rate FiO2 05/12/17 01:42 88 18 151/111 97 Room Air 05/12/17 01:40 88 05/11/17 23:42 90 18 143/106 93 Room Air 05/11/17 23:10 94 18 131/108 96 Room Air 05/11/17 21:28 94 156/105 95 05/11/17 21:28 95 Room Air 05/11/17 21:25 94 05/11/17 19:38 36.8 95 18 170/112 95 Room Air General Appearance: WD/WN, no apparent distress Head: normocephalic, atraumatic Eyes: normal inspection, PERRL ENT: hearing grossly normal Neck: supple, no JVD Respiratory/Chest: lungs clear, normal breath sounds, no respiratory distress Cardiovascular: regular rate, rhythm, no murmur, normal peripheral pulses Abdomen/GI: normal bowel sounds, non tender, soft Back: normal inspection, no CVA tenderness Extremities/Musculoskelatal: no calf tenderness, no pedal edema Neurologic/Psych: alert, normal mood/affect, oriented x 3 Skin: no rash Diagnostics Laboratory Results Results Past 24 Hours Test 05/11/17 20:00 05/11/17 20:15 05/12/17 01:57 Range/Units White Blood Count 8.22 4.8-10.8 K/uL Red Blood Count 4.51 4.2-5.4 M/uL Hemoglobin 13.8 12.0-16.0 g/dL Hematocrit 40.4 37-47 % Mean Corpuscular Volume 89.6 80-100 fL Mean Corpuscular Hemoglobin 30.6 25-34 pg Mean Corpuscular Hemoglobin Concent 34.2 32-36 g/dl Platelet Count 210 130-400 K/uL Mean Platelet Volume 8.9 7.4-10.4 fL Neutrophils (%) (Auto) 51.4 % Lymphocytes (%) (Auto) 41.2 % Monocytes (%) (Auto) 6.7 % Eosinophils (%) (Auto) 0.5 % Basophils (%) (Auto) 0.1 % Neutrophils # (Auto) 4.22 1.4-6.5 K/uL Lymphocytes # (Auto) 3.39 1.2-3.4 K/uL Monocytes # (Auto) 0.55 0.11-0.59 K/uL Eosinophils # (Auto) 0.04 0-0.5 K/uL Basophils # (Auto) 0.01 0-0.2 K/uL RDW Standard Deviation 41.6 36.4-46.3 fL RDW Coefficient of Variation 12.8 11.5-14.5 % Immature Granulocyte % (Auto) 0.1 % Immature Granulocyte # (Auto) 0.01 0.00-0.02 K/uL Prothrombin Time 11.4 9.0-12.0 SECONDS Prothromb Time International Ratio 1.1 0.9-1.1 Activated Partial Thromboplast Time 30.7 21.0-31.0 SECONDS Partial Thromboplastin Ratio 1.2 Urine Color YELLOW Urine Appearance CLEAR CLEAR Urine pH 8.0 4.5-7.5 Urine Specific [place] 1.009 1.000-1.030 Urine Protein NEG NEG Urine Glucose (UA) NEG NEG Urine Ketones NEG NEG Urine Occult Blood NEG NEG Urine Nitrite NEG NEG Urine Bilirubin NEG NEG Urine Urobilinogen NEG NEG Urine Leukocyte Esterase NEG NEG Sodium Level 140 136-145 mmol/L Potassium Level 3.8 3.5-5.1 mmol/L Chloride Level 104 98-107 mmol/L Carbon Dioxide Level 29 21-32 mmol/L Anion Gap 7.0 16.0 16-25 mmol/L Blood Urea Nitrogen 11 7-18 mg/dl Creatinine 0.73 0.60-1.20 mg/dl Est Creatinine Clear Calc Drug Dose 78.9 ml/min Estimated GFR () 100.9 Estimated GFR (Non- 87.0 BUN/Creatinine Ratio 14.9 10-20 Random Glucose 101 70-99 mg/dl Calcium Level 8.9 8.5-10.1 mg/dl Total Bilirubin 0.5 0.2-1 mg/dl Direct Bilirubin 0.1 0-0.2 mg/dl Aspartate Amino Transf (AST/SGOT) 32 15-37 U/L Alanine Aminotransferase (ALT/SGPT) 41 12-78 U/L Alkaline Phosphatase 108 45-117 U/L Total Protein 8.1 6.4-8.2 gm/dl Albumin 3.8 3.4-5.0 gm/dl Lipase 320 73-393 U/L Thyroid Stimulating Hormone (TSH) 0.931 0.300-4.500 uIu/ml Bedside Hemoglobin 13.9 12.0-16.0 g/dl Bedside Hematocrit 41 37-47 % Bedside Sodium 140 135-144 mEq/L Bedside Potassium 3.7 3.3-5.0 mEq/L Bedside Chloride 101 101-112 mEq/L Bedside Total CO2 28 24-31 mEq/l Bedside Blood Urea Nitrogen 11 7-18 mg/dl Bedside Creatinine 0.6 0.6-1.3 mg/dl Bedside Glucose (other) 103 70-99 mg/dl Bedside Ionized Calcium (Micha) 1.13 1.12-1.32 mmol/l Diagnostic Radiology CT HEAD IMPRESSION: No acute intracranial findings Normal EKG Impression Assessment and Plan 66 yo F with intractable headache x 1 day - MRI and MRA pending at this time - Solu-Medrol 125mg IV now, and 60mg q6h - Check Lyme titers - Tylenol / Ativan - pt declines all narcotics - IV Fluids VTE: SCDs Dispo: Obs on Med/Surg Code Status: Full Attending Addendum: I have physically seen and examined this patient, have supervised the medical residents activities, and agree with the H&P as noted above with the following exceptions as noted. The patient is awake, well-developed and adequately nourished, alert and oriented 3, lying in bed and in moderate acute distress due to headache pain. HEENT--PERRL, EOMI, mucous membranes and oropharynx dry. Neck--supple, no JVD or bruits, thyroid normal, trachea midline, no adenopathy. Heart--normal S1 and S2, no extra beats, no murmurs, rubs or gallops. Lungs--clear bilaterally with good air movement, no respiratory distress, no accessory muscle use. Abdomen--normal bowel sounds and soft, nontender and nondistended, no hernias or masses, no organomegaly. Extremities--no cyanosis, clubbing or edema. There are good distal pulses b/l. Dermatologic--normal skin turgor, normal color, warm and dry, no abnormal lymph nodes, no rash. Neurologic--cranial nerves II through XII grossly intact, motor and sensory examination normal. Rheumatologic--normal range of motion, nontender, muscles and joints. Psychiatric--normal affect. Assessment and Plan: 1. Symptom complex of severe headache, progressive fatigue, and generalized myalgias--would consider in the main differential to include that of Lyme disease and polymyalgia rheumatica. CT of the head was negative for bleed. Order an MRI of the brain and MRA of the head without contrast. Lyme testing added to current ED labs, and we'll treat if testing positive Place on Solu-Medrol 125 mg IV now, and continue at 60 mg IV every [address] on IV fluids. I agree with patient's decision to avoid all narcotics. Tylenol and lorazepam as needed. Level of Care Med/Surg Advanced Directives Existing Advance Directive: No Existing Living Will: No Existing Power of Freight Rate Clerk: No Resuscitation Status FULL RESUSCITATION VTE Prophylaxis VTE Risk Assessment Done? Y/N: Yes Risk Level: Moderate Given or contraindicated: SCD's Social Service Consult None Apply Resident Tracking Resident Involvement: Resident Care Provided Care Provided: Adult Hospital Medicine
[2017-05-12] MEDS ORDERED: ONDANSETRON INJ 2 MG/ML 2 ML VIAL IV PRN (02:15)
[2017-05-12] MEDS ORDERED: ZOLPIDEM TARTRATE 5 MG TAB PO PRN (02:15)
[2017-05-12] MEDS ORDERED: ALUMINUM/MAGNESIUM/SIMETH (MAALOX MAX) 30 ML UDC PO PRN (02:15)
[2017-05-12] MEDS ORDERED: ACETAMINOPHEN 325 MG TAB PO PRN (02:15)
[2017-05-12 02:59] LABS: LYME DISEASE AB IGM NEG (NEG)
[2017-05-12 03:00] LABS: LYME DISEASE AB IGG POS (NEG)
[2017-05-12] MEDS ORDERED: IV FLUIDS COMPLETED PRN (03:45)
[2017-05-12 04:10] VITALS: BP 145/91; PULSE 80; TEMP 36.8; BMI 28.9
[2017-05-12] MEDS: METHYLPREDNISOLONE IV 60 MG in SYRINGE 0 ML IV SCH ×2 (05:22→11:55)
--- NOTE | 2017-05-12 07:13 | DIAGNOSTIC IMAGING REPORT ---
BRAIN WITHOUT CONTRAST HISTORY: 66 years-old Female acute headache without reported trauma. COMPARISON: CT head 05/11/2017, MRI brain 02/26/2010 TECHNIQUE: Multiplanar multisequence MR the brain was obtained without contrast. FINDINGS: Large mddny-cf-ydgx localizer images demonstrate no gross abnormality of the imaged head or neck. There is no restricted diffusion to suggest acute ischemia. Midline structures including the corpus callosum, brainstem and optic chiasm appear unremarkable on the sagittal T1 sequence. No cerebellar tonsillar herniation. There is a partially empty sella. 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 No pathologic Blooming artifact seen on the gradient sequence to suggest hemorrhage. There is mild cervical atrophy without acute intracranial hemorrhage, midline shift, hydrocephalus, abnormal extra-axial collections or intracranial mass. Scattered foci of T2/flair prolongation within the subcortical and periventricular white matter of the cerebral hemispheres bilaterally is again noted, mildly progressed from comparison MR dated 02/26/2010. Flow voids at the level of the skull base appear normal. Mastoid air cells are clear. There is mild thickening of the ethmoid air cells. Prior left cataract repair. IMPRESSION: 1. No acute intracranial abnormality. Negative for hemorrhage or acute ischemia. 2. Mild to moderate chronic microvascular ischemic changes, slightly progressed from 02/26/2010. 3. Incidental findings as above. The above report was generated using voice recognition software. It may contain grammatical, syntax or spelling errors. Electronically signed by: Toribio Coronel M.D. 05/12/2017 7:12 AM Dictated Date/Time: 05/12/2017 7:05 AM
--- NOTE | 2017-05-12 07:19 | DIAGNOSTIC IMAGING REPORT ---
MRA OF THE INTRACRANIAL CIRCULATION WITHOUT CONTRAST CLINICAL HISTORY: Headache. COMPARISON STUDY: Head CT May 11, 2017. TECHNIQUE: Utilizing a 1.5 Maricarmen magnet and 3-D [id number] technique, unenhanced MRA of the intracranial circulation was obtained. FINDINGS: Bilateral M1, M2, A1 and A2 segments are patent. No intracranial aneurysm is identified. There is no abrupt vessel cut off. An anterior communicating artery is present. Posterior circulation is intact. IMPRESSION: Unremarkable MRA of the intracranial circulation. No aneurysm or abrupt vessel cut off. Electronically signed by: Dylan Saleh M.D. 05/12/2017 7:18 AM Dictated Date/Time: 05/12/2017 7:16 AM
[2017-05-12 07:27] VITALS: BP 129/85; PULSE 86; TEMP 37; O2SAT 92
[2017-05-12 08:00] VITALS: O2SAT 92
[2017-05-12] MEDS ORDERED: AMLODIPINE BESYLATE 5 MG TAB PO SCH (08:00)
[2017-05-12] MEDS ORDERED: PANTOprazole SOD 40 MG TAB PO SCH (08:00)
[2017-05-12] MEDS ORDERED: RIVAROXABAN 10 MG TAB PO SCH (08:00)
[2017-05-12] MEDS ORDERED: IBUPROFEN 600 MG TAB PO STA (09:56)
[2017-05-12] MEDS ORDERED: DOXY100C76 PO (11:16)
[2017-05-12] MEDS ORDERED: DOXYCYCLINE HYCLATE 100 MG CAP PO STA (11:17)
[2017-05-12 11:20] VITALS: BP 129/85; PULSE 86; TEMP 37; O2SAT 92
--- NOTE | 2017-05-12 11:41 | Discharge Summary ---
Discharge Summary Date of Service May 12, 2017. (Andreas Joshua M.D.) Discharge Summary Admission Date: May 12, 2017 at 02:04 Discharge Date: May 12, 2017 Discharge Disposition: Home Principal Diagnosis: Migraine Immunizations: Have You Had Influenza Vaccine: Unknown History of Tetanus Vaccine?: Unknown History of Pneumococcal: Unknown History of Hepatitis B Vaccine: Unknown Procedures: BRAIN WITHOUT CONTRAST HISTORY: 66 years-old Female acute headache without reported trauma. COMPARISON: CT head 05/11/2017, MRI brain 02/26/2010 TECHNIQUE: Multiplanar multisequence MR the brain was obtained without contrast. FINDINGS: Large usmre-hi-mxta localizer images demonstrate no gross abnormality of the imaged head or neck. There is no restricted diffusion to suggest acute ischemia. Midline structures including the corpus callosum, brainstem and optic chiasm appear unremarkable on the sagittal T1 sequence. No cerebellar tonsillar herniation. There is a partially empty sella. 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 No pathologic Blooming artifact seen on the gradient sequence to suggest hemorrhage. There is mild cervical atrophy without acute intracranial hemorrhage, midline shift, hydrocephalus, abnormal extra-axial collections or intracranial mass. Scattered foci of T2/flair prolongation within the subcortical and periventricular white matter of the cerebral hemispheres bilaterally is again noted, mildly progressed from comparison MR dated 02/26/2010. Flow voids at the level of the skull base appear normal. Mastoid air cells are clear. There is mild thickening of the ethmoid air cells. Prior left cataract repair. IMPRESSION: 1. No acute intracranial abnormality. Negative for hemorrhage or acute ischemia. 2. Mild to moderate chronic microvascular ischemic changes, slightly progressed from 02/26/2010. 3. Incidental findings as above. MRA OF THE INTRACRANIAL CIRCULATION WITHOUT CONTRAST CLINICAL HISTORY: Headache. COMPARISON STUDY: Head CT May 11, 2017. TECHNIQUE: Utilizing a 1.5 Maricarmen magnet and 3-D vgpc-nv-[id number] technique, unenhanced MRA of the intracranial circulation was obtained. FINDINGS: Bilateral M1, M2, A1 and A2 segments are patent. No intracranial aneurysm is identified. There is no abrupt vessel cut off. An anterior communicating artery is present. Posterior circulation is intact. IMPRESSION: Unremarkable MRA of the intracranial circulation. No aneurysm or abrupt vessel cut off. CT HEAD WITHOUT CONTRAST (CT) CLINICAL HISTORY: Severe headache. Patient on anticoagulation. COMPARISON STUDY: 04/08/2017 TECHNIQUE: Axial CT of the brain is performed from the vertex to the skull base. IV contrast was not administered for this examination. A dose lowering technique was utilized adhering to the principles of ALARA. CT DOSE: 537.48 mGy.cm FINDINGS: No intra or extra-axial mass lesions are visualized. There is no CT evidence of acute cortical infarction. There is no evidence of midline shift. There is no acute hemorrhage. No calvarial fractures are visualized. There are moderate white matter hypodensities likely on a small vessel basis. There is no evidence of pathologic ventricular dilatation. There is no evidence of acute sinusitis IMPRESSION: No acute intracranial findings [~ rep ct add3]] CHEST ONE VIEW PORTABLE CLINICAL HISTORY: severe hypertension COMPARISON STUDY: 11/22/2016 FINDINGS: The cardiac and mediastinal contours are normal. There is no evidence of focal pulmonary consolidation. There is no evidence of failure. No pleural effusions are visualized.[ There is an opacity at the level of the left cardiophrenic angle which is felt to represent a fat pad and or atelectatic change. IMPRESSION: No active disease in the chest. (Andreas Joshua M.D.) Medication Reconciliation New Medications: Doxycycline Monohydrate (Monodox) 100 Mg Cap 100 MG PO BID for 14 Days, #28 CAP Continued Medications: Acetaminophen (Acetaminophen) 500 Mg Tab 1000 MG PO Q6H PRN for Pain, TAB Amlodipine Besylate (Amlodipine Besylate) 5 Mg Tab 5 MG PO QAM Lorazepam (Lorazepam) 0.5 Mg Tab 0.5 MG PO HS PRN for Anxiety/Sleep Pantoprazole (Pantoprazole Sodium) 40 Mg Tab 40 MG PO QAM Rivaroxaban (Xarelto) 20 Mg Tab 20 MG PO QAM, TAB Discharge Exam Pt was seen and examined at bedside. Pt is still reporting a 3/10 HARDY. HARDY relieved after suboccipital relief and administration of 600mg Ibuprofen. Pt reports a 3 months history of weakness and nonspecific joint pains. Denies ever being treated for Lyme disease, denies ever being bitten by a tick, denies any Lyme like rash. Reports a small rash over the anterior abdomen which was found to be non remarkable. ROS: No chest pain, no SOB, no dyspnea on exertion, no palpitations, no fevers, no chills, no nausea, no vomiting, no diarrhea, no dysuria, Review of Systems: Constitutional: No fever, No chills Respiratory: No cough, No sputum, No wheezing, No shortness of breath Abdomen: No nausea, No vomiting, No diarrhea, No constipation Psychiatric: No depression symptoms Physical Exam: General Appearance: WD/WN, + mild distress (complaining of headache) Neck: + pertinent finding (tender suboccipital muscles) Respiratory/Chest: chest non-tender, lungs clear, normal breath sounds, no respiratory distress, no accessory muscle use Cardiovascular: regular rate, rhythm, no edema, no gallop, no JVD, no murmur , normal peripheral pulses Abdomen / GI: normal bowel sounds, non tender, soft, no organomegaly, no pulsatile mass Extremities: normal inspection, normal capillary refill, no pedal edema, + calf tenderness (right calf tenderness) Neurologic/Psychiatric: seed pelleter II-XII nml as tested, no motor/sensory deficits , alert, normal mood/affect, normal reflexes, oriented x 3 Skin: + pertinent finding (hyperpigmented pinpoint lesions on anterior anbdomen of small clinical significance) (Andreas Joshua M.D.) Hospital Course Patient presents to the Emergency room with the worst headache of her life. The headache was frontal, rated as 8/10, she required to be in a dimly lit room. She has a history of ocular migraines but states that she never had this pain before. Pt is on Xarelto for a Left Sided Calf DVT. She reports that her mom had a stroke in her 80s on a blood thinner and almost bled out numerous times. She states that he called the pharmacy and asked if she could take Ibuprofen but they told her that the bleeding risk while taking Xarelto was too high. She therefore did not take any NSAIDs or Triptains before presenting to the ER> In the ER, CT Head, MRI and MRA of the brain showed no acute changes. Incidentally pt also reports a several month history of weakness and joint pains. She was found to have a positive IgG and negative IgM Lyme Titres. On discharge Western Blot analysis for Lyme is Pending. We started the pt on Doxycycline 100mg BID. Pt will be discharged on a two week course of 100mg BID Doxycycline. On Hospital Day #1 - Pt states that her headache has lessened to 3/10. She was given one 600mg dose of Ibuprofen and a suboccipital release was performed - the headache improved with both Interventions. On discharge we recommend Ibuprofen PRN for headache and follow up with PCP for migraine prophylaxis and treatment recommendations if migraines recur. Total Time Spent: Greater than 30 minutes This includes examination of the patient, discharge planning, medication reconciliation, and communication with other providers. (Andreas Joshua M.D.) Resident Physician Supervision Note: I interviewed and examined the patient. Discussed with Dr. Joshua and agree with findings and plan as documented in the note. Any exceptions or clarifications are listed here: None Documented By: Robles Mosqueda feeling better but headache persists. has some photophobia. notes that she used to get ocular migraines up until a few years ago. all other ROS otherwise negative except for as above wants to go home vitals noted nad breathing unlabored cn 2-12 grossly intact conversive coherent and fluent no neuro deficits. ost/msk - R>L high tone/tender/decreased ROM - inhibitory pressure - improved headache - migraine + tension --> improving. no ICH no mass. improving. ibuprofen x 1, can repeat at low frequency intervals (discussed main risk w xarelto would be GI bleeding which would be unlikley to happen w infrequent use) . discussed at length possible f/u management of migraine but also that it's not likely to be a new pattern as much as a once in a while. f/u PCP next week tension headache/cervical somatic dysfunction - OMT as above. tolerated well, had improvement. has good DC and massage she's seen before - can continue to work with either for suboccipitals as needed Total Time Spent: Greater than 30 minutes (Robles Mosqueda D.O.) Discharge Instructions Please refer to the electronic Patient Visit Report (Discharge Instructions) for additional information. (Andreas Joshua M.D.) Follow-Up Follow up with PCP in one week. (Andreas Joshua M.D.) Additional Copies To Brooks Roberts M.D. Resident Involvement: Resident Care Provided Care Provided: [facility] (Andreas Joshua M.D.)
--- NOTE | 2017-05-12 11:47 | Discharge Instructions ---
Discharge Instructions Date of Service May 12, 2017. Admission Reason for Admission: Headache Discharge Discharge Diagnosis / Problem: Migraine Discharge Goals Goal(s): Decrease discomfort, Improve function, Increase independence, Improve nutritional status, Learn about illness, Diagnostic testing Activity Recommendations Activity Limitations: per Instructions/Follow-up section . Instructions / Follow-Up Instructions / Follow-Up You are being discharged on an Antibiotic for Lyme Disease. Take one 100mg pill of Doxycycline every 12 hours for two weeks. Please stay out of the sun while taking Doxycycline. If you are outside please wear sunscreen. You may take up to 600mg of Ibuprofen if you start to re-experience headaches. You can take 600mg up to four times a day. You will be given an instruction packet regarding Doxycycline and Migraines on discharge. Please read this information carefully. Please follow up with your PCP, Dr. Brooks Roberts within the next week. Current Hospital Diet Patient's current hospital diet: Regular Diet Discharge Diet Recommended Diet: Regular Diet Pending Studies Studies pending at discharge: yes List of pending studies: Lyme Western Blot Medical Emergencies . Who to Call and When: Medical Emergencies: If at any time you feel your situation is an emergency, please call 911 immediately. . Non-Emergent Contact Non-Emergency issues call your: Primary Care Provider . . "Provider Documentation" section prepared by Andreas Joshua. . VTE Core Measure Inpt VTE Proph given/why not?: Other Anticoagulation (Xarelto), SCD's Resident Involvement: Resident Care Provided Care Provided: Adult Hospital Medicine
[2017-05-12] MEDS ORDERED: IBUPROFEN 600 MG TAB PO PRN (12:00)
[2017-05-12] MEDS ORDERED: DOXYCYCLINE HYCLATE 100 MG CAP PO SCH (20:00)
[2017-05-17 15:17] LABS: 18KDIGG BAND NONREACTIVE (NONREACTIVE); 23KDIGG BAND NONREACTIVE (NONREACTIVE); 23KDIGM BAND REACTIVE (NONREACTIVE); 28KDIGG BAND NONREACTIVE (NONREACTIVE); 30KDIGG BAND REACTIVE (NONREACTIVE); 39KDIGG BAND NONREACTIVE (NONREACTIVE); 39KDIGM BAND NONREACTIVE (NONREACTIVE); 41KDIGG BAND NONREACTIVE (NONREACTIVE); 41KDIGM BAND REACTIVE (NONREACTIVE); 45KDIGG BAND NONREACTIVE (NONREACTIVE); 58KDIGG BAND NONREACTIVE (NONREACTIVE); 66KDIGG BAND NONREACTIVE (NONREACTIVE); 93KDIGG BAND NONREACTIVE (NONREACTIVE)
--- NOTE | 2017-05-23 09:40 | EDITING REQUIRED CODING QUERY ---
SUPPORTING DIAGNOSIS NEEDED Dr. Bustos, A supporting diagnosis is required for the test/procedure performed on this patient in order for us to be reimbursed by the patient's insurance. Please provide a supporting diagnosis for the following test/procedure listed below next to the test name along with your signature. *If there is no additional diagnosis for this patient that would support the following test/procedure please document that below next to the test/procedure. Test(s)/Procedure(s) that require a supporting diagnosis: * ([id number]) MRA HEAD, NECK DIAGNOSIS: Severe headache, Blood thinner use (Xarelto). Concern for bleed / hemorrhagic or ischemic stroke. DATE OF SERVICE: 05/12/17 Provider Signature: __Gilda Bustos MD Date: ____05/23/2017___ Thank you [facility] Information Management Once completed, please kindly fax back to [phone] For questions please call [phone]
== END 2017-05-12 13:06 | disposition home or self-care (01) ==
LOC: C.EDB 19:37 → C.4E 05-12 02:04 → ENRESERV 05-12 02:14
PROVIDERS: ADMIT Hospitalist; ATTEND Family Medicine
DX: G43.909 Migraine, unspecified, not intractable, without status migrainosus (principal); G44.209 Tension-type headache, unspecified, not intractable; M99.01 Segmental and somatic dysfunction of cervical region; I10 Essential (primary) hypertension; Z87.891 Personal history of nicotine dependence; Z86.711 Personal history of pulmonary embolism; Z79.01 Long term (current) use of anticoagulants

== ENCOUNTER → 2017-05-30 | Outpatient (CLI) | payer BC, OTHER ==
[~2017-05-30] MED LIST changes: -ACET-1311 PO; +ACET500T57 PO; -AMLO-110 PO; +ATV5X PO; -LORA-741 PO; -MISCCAP80 PO; +NRV/5 PO; -OMEG10007 PO; -OREGCAP PO; -PANT40TA PO; +PRT/40 PO; +RIVA1TAB4 PO; -RIVA1TAB7 PO; -TRAM-10 PO
--- NOTE | 2017-05-30 12:16 | DIAGNOSTIC IMAGING REPORT ---
ULTRASOUND VENOUS DOPPLER LWR EXT BILA CLINICAL HISTORY: Leg swelling COMPARISON STUDY: 03/11/2017 FINDINGS: Real-time and color flow Doppler imaging were performed. Flow was seen within the femoral, popliteal and calf veins with no intraluminal thrombus demonstrated. The saphenous vein is patent. IMPRESSION: No evidence of lower extremity DVT. Electronically signed by: Carson Suresh M.D. 05/30/2017 12:14 PM Dictated Date/Time: 05/30/2017 12:13 PM
== END | disposition home or self-care (01) ==
LOC: C.ULTRBC 10:43
PROVIDERS: ATTEND Physician Assistant Medical
DX: I82.403 Acute embolism and thrombosis of unspecified deep veins of lower extremity, bilateral (principal)

== ENCOUNTER → 2017-06-01 | Outpatient (CLI) | payer BC ==
--- NOTE | 2017-06-01 14:59 | DIAGNOSTIC IMAGING REPORT ---
C-SPINE ROUTINE 4 OR 5 VIEWS CLINICAL HISTORY: Persistent headaches. COMPARISON STUDY: 07/02/2009 FINDINGS: The prevertebral soft tissues are normal. No fractures or subluxations are visualized. There are moderate multilevel degenerative changes most pronounced C5-6 and C6-7 levels. IMPRESSION: Moderate degenerative changes within the lower cervical spine. No acute fractures or traumatic subluxations. Electronically signed by: Carson Suresh M.D. 06/01/2017 2:58 PM Dictated Date/Time: 06/01/2017 2:57 PM
== END | disposition home or self-care (01) ==
LOC: C.RADBC 14:14
PROVIDERS: ATTEND Internal Medicine
DX: R51 Headache (principal)

== ENCOUNTER → 2017-08-08 | Outpatient (CLI) | payer BC ==
[~2017-08-08] MED LIST changes: +PANT40TA2 PO; -PRT/40 PO
[2017-08-08 17:19] LABS: URINE APPEARANCE CLOUDY (CLEAR); URINE BILIRUBIN NEG (NEG); URINE COLOR YELLOW; URINE NITRITE NEG (NEG); URINE SPECIFIC GRAVITY 1.015 (1.000-1.030); UROBILINOGEN NEG (NEG)
[2017-08-08 17:25] LABS: MANUAL MICROSCOPIC REQUIRED? NO; REVIEW REQ? NO
== END | disposition home or self-care (01) ==
LOC: C.LAB 17:43
PROVIDERS: ATTEND Physician Assistant
DX: R39.9 Unspecified symptoms and signs involving the genitourinary system (principal)

== ENCOUNTER → 2017-08-12 | Outpatient (CLI) | payer BC ==
--- NOTE | 2017-08-12 11:38 | DIAGNOSTIC IMAGING REPORT ---
Neck ULTRASOUND HISTORY: K11.20 Parotitis Pt. prefers [employer] [id number] COMPARISON: None. FINDINGS: Real-time sonographic imaging of the parotid glands were performed with patient portal representative images. No masses or fluid collections within the parotid glands. The parotid glands appear symmetric. IMPRESSION: No sonographic abnormality within the parotid glands. Electronically signed by: Lenny Martin M.D. 08/12/2017 11:36 AM Dictated Date/Time: 08/12/2017 11:35 AM
== END | disposition home or self-care (01) ==
LOC: C.ULTRBC 10:50
PROVIDERS: ATTEND Physician Assistant
DX: K11.20 Sialoadenitis, unspecified (principal)

== ENCOUNTER → 2017-08-17 | Outpatient (CLI) | payer BC ==
--- NOTE | 2017-08-17 14:09 | DIAGNOSTIC IMAGING REPORT ---
CHEST 2 VIEWS ROUTINE HISTORY: R05 Cough [id number] COMPARISON: Chest 05/11/2017. FINDINGS: The lungs are clear. Cardiac silhouette is normal in size. No pleural effusions. No pneumothorax. Old, healed right lower rib fracture. Posterior fusion hardware seen within the lower lumbar spine. IMPRESSION: No acute process. Electronically signed by: Lenny Martin M.D. 08/17/2017 2:07 PM Dictated Date/Time: 08/17/2017 2:05 PM
[2017-08-17 17:20] LABS: BASO % 0.2 %; BASO ABS # 0.02 K/uL (0-0.2); COMPLETE YES; EOS % 2.7 %; HEMATOCRIT 42.5 % (37-47); IG% 0.1 %; LYMPH % 31.7 %; MEAN CELL VOLUME 91.4 fL (80-100); MEAN CORPUSCULAR HEMOGLOBIN 30.5 pg (25-34); MEAN CORPUSCULAR HGB CONC 33.4 g/dl (32-36); MONO % 6.6 %; NEUT % 58.7 %; PLATELET COUNT 241 K/uL (130-400); RED BLOOD COUNT 4.65 M/uL (4.2-5.4); WHITE BLOOD COUNT 9.79 K/uL (4.8-10.8)
[2017-08-17 17:51] LABS: ALT/SGPT 35 U/L (12-78); AMYLASE 51 U/L (25-115); AST/SGOT 21 U/L (15-37); BLOOD UREA NITROGEN 16 mg/dl (7-18); BUN/CREATININE RATIO 21.5 (10-20); CARBON DIOXIDE 28 mmol/L (21-32); CHLORIDE 104 mmol/L (98-107); CREATININE 0.75 mg/dl (0.60-1.20); GLUCOSE 98 mg/dl (70-99); POTASSIUM 3.7 mmol/L (3.5-5.1); SODIUM 140 mmol/L (136-145)
[2017-08-17 18:02] LABS: ALKALINE PHOSPHATASE 108 U/L (45-117); THYROID STIMULATING HORMONE 0.823 uIu/ml (0.300-4.500)
== END | disposition home or self-care (01) ==
LOC: C.RADBC 13:53
PROVIDERS: ATTEND Physician Assistant
DX: R63.2 Polyphagia (principal)

== ENCOUNTER → 2017-12-20 | Outpatient (CLI) | payer BC ==
[~2017-12-20] MED LIST changes: -ACET500T57 PO; +ACET500T58 PO
[2017-12-20 13:31] LABS: HEMOGLOBIN A1C 5.7 % (4.5-5.6)
== END | disposition home or self-care (01) ==
LOC: C.LABBC 09:21
PROVIDERS: ATTEND Physician Assistant Medical
DX: R63.5 Abnormal weight gain (principal); R73.9 Hyperglycemia, unspecified

== ENCOUNTER 2021-03-09 06:08 | Inpatient (IN) ==
--- NOTE | 2021-02-05 11:35 | PAT Medication Instructions ---
Medication Instructions Date of Service February 05, 2021 Home Medications Medication Instructions Recorded lorazepam 0.5 mg tablet 0.5 mg BUCCAL HS PRN #30 tab 01/21/21 acetaminophen 500 mg tablet 1,000 mg PO Q6H PRN magnesium 250 mg tablet 250 mg PO QAM omega-3 fatty acids 1,000 mg capsule 2,000 mg PO QPM cholecalciferol (vitamin D3) 25 mcg (1,000 unit) capsule 5,000 units PO QAM lorazepam 0.5 mg tablet 0.5 mg BUCCAL HS PRN Cbd With Thc Topical 1 dose TOPICAL QID PRN Elderberry Otc 200 mg PO QAM Marijuana Oil 1 dose PO QID PRN amlodipine 5 mg PO QAM ascorbic acid (vitamin C) 500 mg tablet 500 mg PO QAM celecoxib [Celebrex] 200 mg PO QAM multivitamin 1 tab PO QPM pantoprazole 40 mg PO QAM zinc sulfate 66 mg tablet 66 mg PO QPM ASK your surgeon for instructions celecoxib [Celebrex] 200 mg PO QAM STOP taking 2 weeks before surgery (or as soon as possible if surgery is within 2 weeks) omega-3 fatty acids 1,000 mg capsule 2,000 mg PO QPM Elderberry Otc 200 mg PO QAM STOP taking 24 hours before surgery Cbd With Thc Topical 1 dose TOPICAL QID PRN DO NOT take the morning of surgery magnesium 250 mg tablet 250 mg PO QAM cholecalciferol (vitamin D3) 25 mcg (1,000 unit) capsule 5,000 units PO QAM Marijuana Oil 1 dose PO QID PRN ascorbic acid (vitamin C) 500 mg tablet 500 mg PO QAM Take morning of surgery With a small sip of water, OTHERWISE NOTHING TO EAT OR DRINK AFTER MIDNIGHT: acetaminophen 500 mg tablet 1,000 mg PO Q6H PRN (okay to take up to 4 hours prior to surgery if needed) amlodipine 5 mg PO QAM pantoprazole 40 mg PO QAM Take evening before surgery acetaminophen 500 mg tablet 1,000 mg PO Q6H PRN (if needed) lorazepam 0.5 mg tablet 0.5 mg BUCCAL HS PRN (if needed) Marijuana Oil 1 dose PO QID PRN (if needed) multivitamin 1 tab PO QPM zinc sulfate 66 mg tablet 66 mg PO QPM Other Notes If you have any questions please call us at [phone] or [phone] or [phone] or [phone]
--- NOTE | 2021-02-09 11:32 | Anesthesiology Consultation ---
Date of Service February 09, 2021 Assessment & Plan (1) Encounter for pre-operative examination: - Abnormal preop EKG: Bigeminy noted on unconfirmed preop EKG. Will forward preop EKG to PCP to review at upcoming clearance appt to determine if anything further needed prior to surgery from their perspective. Awaiting response and surgeon-ordered PCP clearance. - COVID screening: Per assessment on 02/09: Travel screen negative, no known COVID-19 positive contacts or current COVID-19 related symptoms. Surgeon arranging preop COVID testing (03/04; [facility]). Awaiting results. Chart Review Chart Review: Patient seen in Pre Admission Testing Teaching & Discussion Pre-Anesthesia Teaching/Discussion Notes: Instructed NPO after midnight before surgery,except medications with 15 cc of water. Medication instructions provided according to the PAT guidelines. History Surgery Operation Date: 03/09/21 10:05 Proposed Procedures p L2-L4 Decompression, L2-L4 Fusion, Possible L2-S1, L4-S1 Hardware Removal, Spinal Cord Monitoring - César Lorenzo DO Height/Weight Height: 5 ft 5 in Weight: 84.6 kg Allergies Allergy/AdvReac Type Severity Reaction Status Date / Time amoxicillin [From Augmentin] Allergy Unknown Unknown Verified 01/30/21 14:25 bupropion [From Zyban] Allergy Unknown Stroke-like Verified 02/06/21 08:41 symptoms (Leg/arm numbness) erythromycin base Allergy Unknown Unknown Verified 01/30/21 14:25 oxycodone Allergy Unknown Unknown Verified 01/30/21 14:25 rivaroxaban [From Xarelto] AdvReac Severe Headache Verified 02/06/21 08:41 cephalexin [From Keflex] AdvReac Unknown Diarrhea, Verified 02/09/21 11:37 upset stomach, headache ciprofloxacin AdvReac Unknown Nausea, Verified 02/06/21 08:41 dyspepsia clarithromycin [From Biaxin] AdvReac Unknown GI, Verified 02/09/21 11:37 headache clavulanic acid AdvReac Unknown Diarrhea, Verified 02/09/21 11:37 [From Augmentin] upset stomach, headache lisinopril AdvReac Unknown Headache Verified 02/09/21 11:37 morphine AdvReac Unknown Hallucinati Verified 02/06/21 08:41 ons NSAIDS (Non-Steroidal AdvReac Unknown GI Verified 02/06/21 08:41 Anti-Inflamma dypepsia (tolerates Celebrex) propoxyphene [From Darvon] AdvReac Unknown Hallucinations, Verified 02/06/21 08:41 N/V steroid AdvReac Severe SOB, Uncoded 02/06/21 08:41 tachycardia, elevates BP (with oral + injectable) Medications Home Medications Medication Instructions Recorded Confirmed Last Taken acetaminophen 500 mg tablet 1,000 mg PO Q6H PRN tab 05/17/19 01/30/21 Unknown magnesium 250 mg tablet 250 mg PO QAM 05/17/19 01/30/21 Unknown omega-3 fatty acids 1,000 mg 2,000 mg PO QPM cap 05/17/19 01/30/21 Unknown capsule cholecalciferol (vitamin D3) 25 5,000 units PO QAM cap 11/05/19 01/30/21 Unknown mcg (1,000 unit) capsule lorazepam 0.5 mg tablet 0.5 mg BUCCAL HS PRN #30 tab 01/21/21 01/30/21 Unknown Cbd With Thc Topical 1 dose TOPICAL QID PRN 01/30/21 01/30/21 Unknown Elderberry Otc 200 mg PO QAM 01/30/21 01/30/21 Unknown Marijuana Oil 1 dose PO QID PRN 01/30/21 01/30/21 Unknown amlodipine 5 mg PO QAM 01/30/21 01/30/21 Unknown ascorbic acid (vitamin C) 500 mg 500 mg PO QAM 01/30/21 01/30/21 Unknown tablet celecoxib [Celebrex] 200 mg PO QAM 01/30/21 01/30/21 Unknown multivitamin 1 tab PO QPM 01/30/21 01/30/21 Unknown pantoprazole 40 mg PO QAM 01/30/21 01/30/21 Unknown zinc sulfate 66 mg tablet 66 mg PO QPM 01/30/21 01/30/21 Unknown Past Medical History Medical History Arthritis Cancer BCC (Lip) DVT (deep venous thrombosis) Remote LLE DVT (unknown etiology), previous anticoagulation since discontinued, no issues since GERD (gastroesophageal reflux disease) controlled History of cystocele History of Lyme disease 09/2019 s/p treatment Hypertension MVP (mitral valve prolapse) Remote hx per patient > no mitral valve disease noted per 03/20/18 echo Obesity Pelvic relaxation Prediabetes Exercise / Class Metabolic Activity III < 4 Walking/Shop/Light housework (one flight of stairs (no chest pain, + sob)) Past Family History Family History Family/Other Heart disease Stroke Denies family history of Ovarian cancer Prostate cancer Myocardial infarction Breast cancer Colorectal cancer Past Surgical History Surgical History H/O foot surgery H/O shoulder surgery H/O vaginal surgery Vaginal sling operation for stress incontinence H/O: hysterectomy History of back surgery L4-S1 fusion (2008) History of colonoscopy History of cystocele Anterior Colporrhaphy, repair of cystocele History of esophagogastroduodenoscopy (EGD) Hx of tooth extraction Past Anesthesia History No Family Hx of Anesthesia Complications and Other Patient anxious/nervous about surgery as patient states she "woke up alone" in PACU (S) after previous surgery stating that they forgot about her and she woke up in a darkened room alone. Post-op urinary retention after vaginal sling surgery (requiring cath x weeks). History of PONV No Hx of PONV and Hx of Motion Sickness Social History Smoking Status: Former smoker Do You Dip or Chew Tobacco: No Smoking End Date: Quit 20+ years ago Hx Alcohol Use: Yes Alcohol type: hard liquor alcohol intake frequency: a few times a week Hx Substance Use: Yes substance use type: marijuana Substance Use Type Other:: Medical marijuana (card)- oral and topical (not using routinely) Review of Systems Patient denies chest pain, shortness of breath, fever, chills, cough, wheezing, palpitations. Physical Exam Vital Signs VITALS BP 164/91 P 80 TEMP SP02 96%RA RESP 16 PHYSICAL Decreased cervical extension range of motion. Full TMJ range of motion. TMD 4 finger breaths Mallampati Score 2 Dentition: intact, several crowns all over (18), 3-4 implants (sides) Lungs: clear throughout to auscultation Cardiac: regular rate and rhythm, no murmurs noted Spine: normal Carotid arteries: negative bruit Extremities: no edema Testing Laboratory Results 02/09/21 12:04 02/09/21 12:04 PT 10.5 Seconds (9.0-12.0) 02/09/21 12:04 INR 1.0 (0.9-1.1) 02/09/21 12:04 APTT 26.2 Seconds (21.0-31.0) 02/09/21 12:04 Urine Color Yellow 02/09/21 12:04 Urine Appearance Clear (Clear) 02/09/21 12:04 Urine pH 7.5 (4.5-7.5) 02/09/21 12:04 Ur Specific [place]ston 1.014 (1.000-1.030) 02/09/21 12:04 Urine Protein Negative (Negative) 02/09/21 12:04 Urine Glucose (UA) Negative (Negative) 02/09/21 12:04 Urine Ketones Negative (Negative) 02/09/21 12:04 Urine Nitrite Negative (Negative) 02/09/21 12:04 Ur Leukocyte Esterase 1+ (Negative) H 02/09/21 12:04 Urine WBC (Auto) 5-10 /hpf (0-5) H 02/09/21 12:04 Urine RBC (Auto) 0-4 /hpf (0-4) 02/09/21 12:04 U Hyaline Cast (Auto) 1-5 /lpf (0-5) 02/09/21 12:04 U Epithel Cells (Auto) >30 /lpf (0-5) H 02/09/21 12:04 Urine Bacteria (Auto) Negative (Negative) 02/09/21 12:04 Blood Type O Positive 02/09/21 12:04 Antibody Screen NEGATIVE 02/09/21 12:04 Electrocardiogram Date: 02/09/21 SR with frequent PVC's in pattern of bigeminy at 87bpm. NS ST/TWA. Chest X-Ray Date: 11/26/20 FINDINGS: The heart is the upper limits of normal in size. There is no failure. There is no focal pulmonary consolidation. There are no pleural effusions. Degenerative changes are present within the spine. IMPRESSION: No active disease in the chest. Echocardiogram Date: 03/20/18 EF 65 to 70%. No regional wall motion abnormality. Grade 1 diastolic dysfunction. Mild concentric LVH. No significant valvular disease. Stress Test Date: 03/21/18 Type: exercise Normal exercise echocardiogram without evidence of inducible ischemia. 7.7 METS. 91% MPHR.
[2021-02-09 12:53] LABS: Basophils # (auto) 0.01 K/uL (0-0.2); Basophils % (auto) 0.1 %; Eosinophils # (auto) 0.15 K/uL (0-0.5); Eosinophils % (auto) 1.5 %; Hematocrit (blood only) 42.3 % (37-47); Immature Granulocytes # (auto) 0.01 K/uL (0.00-0.02); Immature Granulocytes % (auto) 0.1 %; Lymphocytes # (auto) 3.37 K/uL (1.2-3.4); Lymphocytes % (auto) 34.5 %; Mean Corpuscular Hemoglobin 30.2 pg (25-34); Mean Corpuscular Hgb Conc 33.1 g/dL (32-36); Mean Corpuscular Volume 91.2 fL (80-100); Mean Platelet Volume 10.1 fL (7.4-10.4); Monocytes # (auto) 0.55 K/uL (0.11-0.59); Monocytes % (auto) 5.6 %; Neutrophils # (auto) 5.68 K/uL (1.4-6.5); Neutrophils % (auto) 58.2 %; Platelet Count 215 K/uL (130-400); RDW Coefficient of Variation 12.8 % (11.5-14.5); RDW Standard Deviation 42.7 fL (36.4-46.3); Red Blood Count 4.64 M/uL (4.2-5.4); White Blood Count 9.77 K/uL (4.8-10.8)
[2021-02-09 13:00] LABS: Appearance Urine Clear (Clear); Bacteria Urine Automated Negative (Negative); Bilirubin Urine Negative (Negative); Blood Urine Negative (Negative); Color Urine Yellow; Epithelial Cell Urine Auto >30 /lpf (0-5); Glucose Urine UA Negative (Negative); Ketones Urine Negative (Negative); Leukocyte Esterase Urine 1+ (Negative); Nitrite Urine Negative (Negative); Protein Urine Negative (Negative); RBC Urine Automated 0-4 /hpf (0-4); Specific Gravity Urine 1.014 (1.000-1.030); Urobilinogen Urine Negative (Negative); pH Urine 7.5 (4.5-7.5)
[2021-02-09 13:04] LABS: Calcium 9.3 mg/dl (8.5-10.1); Creatinine Clr Calc Pharmacy 96.4 ml/min; Est GFR (African American) 108.5; Est GFR (Non-African American) 93.7; Potassium 4.1 mmol/L (3.5-5.1)
[2021-02-09 13:08] LABS: Partial Thromboplastin Time 26.2 Seconds (21.0-31.0); Prothrombin Time 10.5 Seconds (9.0-12.0)
--- NOTE | 2021-02-10 07:21 | Electrocardiogram Report ---
Test Reason : Blood Pressure : / mmHG Vent. Rate : 087 BPM Atrial Rate : 087 BPM P-R Int : 168 ms QRS Dur : 078 ms QT Int : 396 ms P-R-T Axes : 072 087 069 degrees QTc Int : 476 ms Sinus rhythm with frequent Premature ventricular complexes in a pattern of bigeminy Nonspecific ST and T wave abnormality Abnormal ECG When compared with ECG of 20-MAR-2018 06:30, Premature ventricular complexes are now Present Nonspecific T wave abnormality now evident in Anterior leads Confirmed by Delfino Herrera ([id number]) on 02/10/2021 7:21:17 AM Referred By: César Lorenzo Confirmed By:Delfino Herrera
[~2021-03-09 06:08] MED LIST changes: -ACET500T58 PO; +ACETAMINOPHEN 500 MG TAB PO SCH; -ATV5X PO; +CeleBREX 200 MG CAP PO SCH; +GABAPENTIN 300 MG CAP PO SCH; +LR 15ML/HR IV SCH; -NRV/5 PO; -PANT40TA2 PO; -RIVA1TAB4 PO; +ceFAZolin 2000MG 2,000 MG/15 ML SYR IV SCH
[2021-03-09] MEDS ORDERED: SUGAMMADEX SODIUM 200 MG/2 ML VIAL IV ONE (06:24)
[2021-03-09] MEDS ORDERED: HYDROmorphone INJ 2 MG/ML SYR/VIAL ONE (06:46)
[2021-03-09] MEDS ORDERED: LIDOCAINE 2% 2 ML VIAL/AMP(20MG/ML) INFIL ONE (06:46)
[2021-03-09] MEDS ORDERED: MIDAZOLAM HCL 1 MG/ML 2ML VIAL ONE (06:46)
[2021-03-09] MEDS ORDERED: ROCURONIUM BROMIDE 10 MG/ML 5 ML VIAL IV ONE (06:47)
[2021-03-09] MEDS ORDERED: ONDANSETRON INJ 2 MG/ML 2 ML VIAL ONE (06:47)
[2021-03-09] MEDS ORDERED: DEXAMETHASONE SOD INJ 4 MG/ML VIAL ONE (06:47)
[2021-03-09] MEDS ORDERED: PROPOFOL IV EMULSION 10 MG/ML 20 ML VIAL IV ONE (06:47)
[2021-03-09] MEDS ORDERED: ALBUMIN HUMAN 5% 12.5 GM/250 ML VIAL IV ONE (06:52)
--- NOTE | 2021-03-09 07:34 | History & Physical Bridge Note ---
Date of Service March 09, 2021 History & Physical Bridge Note I have examined the patient, reviewed the History & Physical and in the interval since the performance of the History & Physical I have noted the following changes of clinical significance: no changes noted
--- NOTE | 2021-03-09 07:36 | History & Physical Report ---
Date of Service March 09, 2021 Assessment & Plan (1) Neurogenic claudication due to lumbar spinal stenosis: Admission and Anticipated Discharge Date Admission Date: L2-L4 decompression, L2-L4 fusion, possible L2-S1, L4-S1 hardware removal History of Present Illness Chief Complaint: Back and leg pain Primary Care Provider: Delia Ortiz MD This is a 62-year-old female well-known to me the presents with chronic persistent back and leg pain. Failing extensive course of nonoperative care she is here for surgical invention. Allergies Allergy/AdvReac Type Severity Reaction Status Date / Time amoxicillin [From Augmentin] Allergy Unknown Unknown Verified 03/09/21 06:49 bupropion [From Zyban] Allergy Unknown Stroke-like Verified 03/09/21 06:49 symptoms (Leg/arm numbness) erythromycin base Allergy Unknown Unknown Verified 03/09/21 06:49 oxycodone Allergy Unknown Unknown Verified 03/09/21 06:49 rivaroxaban [From Xarelto] AdvReac Severe Headache Verified 03/09/21 06:49 cephalexin [From Keflex] AdvReac Unknown Diarrhea, Verified 03/09/21 06:49 upset stomach, headache ciprofloxacin AdvReac Unknown Nausea, Verified 03/09/21 06:49 dyspepsia clarithromycin [From Biaxin] AdvReac Unknown GI, Verified 03/09/21 06:49 headache clavulanic acid AdvReac Unknown Diarrhea, Verified 03/09/21 06:49 [From Augmentin] upset stomach, headache lisinopril AdvReac Unknown Headache Verified 03/09/21 06:49 morphine AdvReac Unknown Hallucinati Verified 03/09/21 06:49 ons NSAIDS (Non-Steroidal AdvReac Unknown GI Verified 03/09/21 06:49 Anti-Inflamma dypepsia (tolerates Celebrex) propoxyphene [From Darvon] AdvReac Unknown Hallucinations, Verified 03/09/21 06:49 N/V steroid AdvReac Severe SOB, Uncoded 03/09/21 06:49 tachycardia, elevates BP (with oral + injectable) Home Medications Medication Instructions Recorded Confirmed Type acetaminophen 500 mg tablet 1,000 mg PO Q6H PRN tab 05/17/19 03/09/21 History magnesium 250 mg tablet 250 mg PO QAM 05/17/19 03/09/21 History omega-3 fatty acids 1,000 mg 2,000 mg PO QPM cap 05/17/19 03/09/21 History capsule cholecalciferol (vitamin D3) 25 5,000 units PO QAM cap 11/05/19 03/09/21 History mcg (1,000 unit) capsule lorazepam 0.5 mg tablet 0.5 mg BUCCAL HS PRN #30 tab 01/21/21 03/09/21 Rx Cbd With Thc Topical 1 dose TOPICAL QID PRN 01/30/21 03/09/21 History Marijuana Oil 1 dose PO QID PRN 01/30/21 03/09/21 History amlodipine 5 mg PO QAM 01/30/21 03/09/21 History ascorbic acid (vitamin C) 500 mg 500 mg PO QAM 01/30/21 03/09/21 History tablet celecoxib [Celebrex] 200 mg PO QAM 01/30/21 03/09/21 History multivitamin 1 tab PO QPM 01/30/21 03/09/21 History pantoprazole 40 mg PO QAM 01/30/21 03/09/21 History zinc sulfate 66 mg tablet 66 mg PO QPM 01/30/21 03/09/21 History elderberry fruit 200 mg capsule 200 mg PO DAILY cap 02/11/21 02/17/21 History Past Med/Surg History Medical History Arthritis Cancer DVT (deep venous thrombosis) GERD (gastroesophageal reflux disease) History of cystocele History of Lyme disease Hypertension MVP (mitral valve prolapse) Obesity Pelvic relaxation Prediabetes Surgical History H/O foot surgery H/O shoulder surgery H/O vaginal surgery H/O: hysterectomy History of back surgery History of colonoscopy History of cystocele History of esophagogastroduodenoscopy (EGD) Hx of tooth extraction Family History Family/Other Heart disease Stroke Denies family history of Ovarian cancer Prostate cancer Myocardial infarction Breast cancer Colorectal cancer Social History Smoking Status: Former smoker Smoking End Date: Quit 20+ years ago; Second Hand Exposure: Yes; Do You Dip or Chew Tobacco: No; Hx Alcohol Use: Yes Alcohol type: hard liquor Hx Substance Use: Yes Substance Use Type Other:: Medical marijuana (card)- oral and topical (not using routinely) Preferred Language: Bengali Communication Ability: Effective Visual Impairment: No Limitations Hearing Ability: Normal 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 Beliefs That Will Affect Care: None marital status: Current Living Situation: Family current occupational status: retired Other Information That Helps Us Care for You: No Feels Safe at Home: Yes Safety Concerns: Feels Safe At This Time Childhood Exposure to Second-Hand Smoke: Yes Dental Care, Regularly: Yes Physical Activity Frequency: Daily Physical Activity Frequency Comment: regularly, walking Seatbelt Use: always Sunscreen Use: Yes Assistive Devices: Glasses Assistive Devices Comment: IMPLANTS/CROWNS-ALL OVER Physical Exam Physical Exam: Patient is alert and oriented Heart regular in rhythm Lungs clear to auscultation Results & Data ([facility]) Vital Signs (Past 12 Hours) Vital Signs Temp Pulse Resp BP Pulse Ox 03/09/21 06:41 36.8 C 90 97 H 139/101 H 97
[2021-03-09] MEDS ORDERED: LABETALOL HCL IV 5 MG/ML 20ML IV PRN (07:39)
[2021-03-09] MEDS ORDERED: PROMETHAZINE HCL 6.25 MG in SODIUM CHLORIDE 0.9% 50 ML IV PRN (07:39)
[2021-03-09] MEDS ORDERED: ONDANSETRON INJ 2 MG/ML 2 ML VIAL IV PRN ×2 (07:39→12:24)
[2021-03-09] MEDS ORDERED: ATROPINE SULFATE 0.1 MG/ML 10ML SYR IV PRN (07:39)
[2021-03-09] MEDS ORDERED: BUPIVACAINE/EPINEPHRINE 0.5% MPF 1:200,000 30 ML VIAL ONE (07:41)
[2021-03-09] MEDS ORDERED: diphenhydrAMINE 50 MG/ML VIAL ONE (08:26)
[2021-03-09] MEDS ORDERED: FLOSEAL HEMOSTATIC MATRIX 10ML TOP ONE (10:05)
--- NOTE | 2021-03-09 10:16 | Operative Report ---
Post Operative Report Pre & Post Diagnosis Operation Date: 03/09/21 07:45 Pre-Op Diagnosis: Neurogenic claudication due to lumbar spinal stenosis Post-Op Diagnosis: Neurogenic claudication due to lumbar spinal stenosis I identified the patient and participated in the time-out.: Yes Procedure Operation Date: 03/09/21 07:45 Actual Procedures #1 Removal of posterior instrumentation L4-5 L5-S1. #2 exploration of fusion L4-5 L5-S1. #3 lumbar decompression bilateral medial facetectomies and foraminotomies L2-3 and L3-4. #4 posterior spinal fusion L2-3 L3-4. #5 placement posterior instrumentation L2-S1. #6 interbody fusion L3-L4. #7 placement of peek cage 11 x 22 mm at L3-L4. #8 placement locally harvested morselized autograft in the posterior lateral gutters. #9 placement of I factor in the interbody cage and infuse and master graft in the posterior lateral gutters. Surgeon César Lorenzo, DO Dental Billing Specialist Dinorah Dawson Estimated Blood Loss 450 Findings See Below Patient is 5 foot 5 inches tall weighing over 84 kg with a BMI in excess of 31. The patient's body habitus did contribute to significant technical difficulty requiring her deepest retractors longus instruments in order to perform her procedure. This at least 50% increase to the operative time. Specimens None Indications This is a 62-year-old female who presents above-mentioned diagnosis after failing course of nonoperative care is here for surgical invention. Description of Procedure Patient was met with identified informed consent obtained. Patient was then taken to the operative suite underwent ablation placed in a prone position the Juan table on top of the Herb frame. All bony prominences well-padded eyes inspected to ensure no external pressure placed upon the. This point the lumbar spine was prepped and draped in a sterile fashion. Sharp dissection with the assistance of Bovie cautery was performed down to and exposing the lamina and transverse processes of L2-L3 and the instrumentation at L4-L5 and S1 levels bilaterally. Then proceeded to remove the hardware at L4-L5 and S1 bilaterally explore the fusion mass noting it to be mature and intact. Then performed a complete laminectomy of L3 and L2 from a caudal cephalad fashion including bilateral medial facetectomies and foraminotomies addressing severe spinal stenosis. Pedicle screws were then placed in L2-L3-L4 and S1 levels bilaterally with assistance of fluoroscopy and the appropriately sized roxanne contoured and placed. By way of a transforaminal portion right a complete discectomy of L3-L4 was performed endplates curetted to subcortical bleeding bone and a 11 x 22 mm peek cage filled with I factor tapped in position. The rods then locked in final position bilaterally. The transverse processes of L2-L3-L4 burred to subcortical bleeding bone. Infuse collagen sponge master graft and local autograft was placed in the posterior lateral gutters. 15 round JEFE drain inserted. The incision was then closed with 1 Vicryl the fascia 2-0 Vicryl subcutaneously and 4 Monocryl for final skin closure. Steri-Strip sterile dressings placed. Patient will continue PACU stable condition. Please note spinal cord monitoring was utilized at the procedure no changes noted. Lastly Dinorah Dawson was present at the entire procedure involved the patient positioning complex portions of the surgery and final skin closure. I attest to the content of the Intraoperative Record and any orders documented therein. Any exceptions are noted below.
--- NOTE | 2021-03-09 10:39 | Fluoroscopy Report ---
FL lumbar spine 2-3V CLINICAL HISTORY: L2-L4 DECOMPRESSION/ FUSION COMPARISON STUDY: April 2020 FLUOROSCOPY TIME: 27 seconds. NUMBER OF FLUOROSCOPIC IMAGES: 3 FINDINGS: There are postsurgical changes of an L3-4, L4-5, and L5-S1 discectomies interbody fusions. There are pedicle screws present at the L2, L3, L4, S1 levels. IMPRESSION: Intraoperative fluoroscopic radiographs demonstrating an L2-S1 spinal decompression and fusion. ACT 112: Negative or not required by law. Electronically signed by: Carson Suresh M.D. 03/09/2021 10:38 AM
[2021-03-09] MEDS: fentaNYL citrate 100 MCG/2 ML VIAL IV PRN ×8 (10:51→11:49)
[2021-03-09] MEDS ORDERED: MAGNESIUM HYDROXIDE SUSP 30 ML UDC PO PRN (12:24)
[2021-03-09] MEDS ORDERED: ACETAMINOPHEN HOME PACK 500 MG TABLET PO PRN (12:24)
[2021-03-09] MEDS ORDERED: ACETAMINOPHEN 1,000 MG/100 ML VIAL IV PRN (12:24)
[2021-03-09] MEDS ORDERED: LORazepam 0.5 MG/1 ML VIAL IV PRN (12:24)
[2021-03-09] MEDS ORDERED: hydrOXYzine HCl 25 MG TAB PO PRN (12:24)
[2021-03-09] MEDS ORDERED: METOCLOPRAMIDE HCL INJ 5 MG/ML 2 ML VIAL IV PRN (12:24)
[2021-03-09] MEDS ORDERED: ONDANSETRON 4 MG OD TAB PO PRN (12:24)
[2021-03-09] MEDS ORDERED: [UNRECOGNIZED DRUG - OTHER] TOP PRN (12:24)
[2021-03-09] MEDS ORDERED: ALUMINUM/MAGNESIUM SUSP 30 ML UDC PO PRN (12:24)
[2021-03-09] MEDS ORDERED: DO NOT ADMINISTER FLU VACCINE PRN (12:24)
[2021-03-09] MEDS ORDERED: NALOXONE HCL 0.4 MG/1 ML VIAL/CARP IV PRN (12:24)
[2021-03-09] MEDS ORDERED: SOD PHOSPHATE/SOD BIPHOSPHATE ENEMA 132 ML BTL PR PRN (12:24)
[2021-03-09] MEDS ORDERED: MARIJUANA OIL PO PRN (12:24)
[2021-03-09] MEDS ORDERED: DO NOT ADMINISTER PNEUMOCOCCAL VACCINE PRN (12:24)
[2021-03-09] MEDS ORDERED: PROMETHAZINE HCL 12.5 MG in SODIUM CHLORIDE 0.9% 50 ML IV PRN (12:24)
[2021-03-09] MEDS ORDERED: FAMOTIDINE 20 MG TAB PO PRN (12:24)
[2021-03-09] MEDS ORDERED: diphenhydrAMINE Capsule 25 MG CAP PO PRN (12:24)
[2021-03-09] MEDS: LACTATED RINGER'S 1,000 ML IV SCH ×2 (12:45→22:56)
[2021-03-09] MEDS: traMADol HCL 50 MG TABLET PO PRN (12:50)
--- NOTE | 2021-03-09 13:06 | Hospitalist Consultation ---
Date of Consultation March 09, 2021 Assessment & Plan (1) Status post lumbar spine surgery for decompression of spinal cord: POD#0 Mrs. Snyder is a 70 year old female with a history of Hypertension, Prediabetes, Obesity, GERD, Mitral Valve Prolapse, Frequent PVC's, DJD, MTHFR Deficiency with prior DVT, and Lumbar Degenerative Disc Disease who underwent L2 through L4 Decompression and Fusion with Dr. Lorenzo today. Patient tolerated the procedure well, no reported complications. Patient is currently complaining of severe pain in her low back that feels almost like "labor pains". She is having trouble finding a comfortable position. She denies any radiation of the discomfort into either leg. She denies any urinary or fecal incontinence. So far she has received IV Acetaminophen and a dose of Tramadol but the pain persist. She is hesitant to use opiate analgesics because she has had side effects of "bugs crawling on her", and confusion/odd behavior in the past. Patient denies any weakness, numbness, or tingling of her legs. Patient denies any nausea, vomiting, or any adverse side effects from anesthesia. Recommend the followin. IV Acetaminophen as needed. 2. Continue Tramadol as needed. 3. Add Oxycodone IR 5 mg every 3 hours as needed for pain rated at or > 5/10. 4. Add Dilaudid 1 mg every 2 hours as needed for pain rated at or > 7/10. 5. Ongoing DVT prophylaxis with SCD's, compression stockings, ambulation. (2) Hypertension: BP appears to be controlled. -- Continue Amlodipine 5 mg daily. -- Continue to monitor VS every shift. (3) Prediabetes: -- Monitor daily labs, if BSG elevated we can initiate sliding scale insulin. (4) GERD (gastroesophageal reflux disease): -- Continue Protonix 40 mg daily. Supervising Physician Co-Signing Physician Notes This is a consult from Dr. Lorenzo for postoperative management. Patient had an L2-L4 decompression and fusion. PA-C note reviewed, agree with above. Medical issues appear to be stable, blood pressure is acceptable. Continue medications as detailed along with analgesia per primary service for postoperative pain. We will continue to follow patient remains here in the hospital. History of Present Illness Reason for Consultation: -- Post-op Medical Management. -- Hypertension. -- MTHFR Deficiency/Prior DVT. Requesting Physician: César Lorenzo DO Attending Physician: Varun Choudhury DO History of Present Illness Mrs. Snyder is a 70 year old female with a history of Hypertension, Prediabetes, Obesity, GERD, Mitral Valve Prolapse, Frequent PVC's, DJD, MTHFR Deficiency with prior DVT, and Lumbar Degenerative Disc Disease who underwent L2 through L4 Decompression and Fusion with Dr. Lorenzo today. Patient tolerated the procedure well, no reported complications. Patient is currently being seen in room 318 and is complaining of severe pain in her low back that feels almost like "labor pains". She is having trouble finding a comfortable position. She denies any radiation of the discomfort into either leg. She denies any urinary or fecal incontinence. So far she has received IV Acetaminophen and a dose of Tramadol but the pain persist. She is hesitant to use opiate analgesics because she has had side effects of "bugs crawling on her", and confusion /odd behavior in the past. Patient denies any weakness, numbness, or tingling of her legs. Patient denies any nausea, vomiting, or any adverse side effects from anesthesia. She denies any chest pain, heaviness, tightness, pressure, or discomfort. She denies any shortness of breath. No palpitations, syncope, or near syncope. Patient offers no other complaints or concerns. She states that her blood pressure in general is well controlled. Patient had a prior DVT following knee surgery about 6 years ago for which she was transiently on Xarelto. Hypercoagulable workup showed that she was positive for MTHFR deficiency. Patient has not had any further blood clots to her knowledge. Allergies Allergy/AdvReac Type Severity Reaction Status Date / Time amoxicillin [From Augmentin] Allergy Unknown Unknown Verified 03/09/21 06:49 bupropion [From Zyban] Allergy Unknown Stroke-like Verified 03/09/21 06:49 symptoms (Leg/arm numbness) erythromycin base Allergy Unknown Unknown Verified 03/09/21 06:49 oxycodone Allergy Unknown Unknown Verified 03/09/21 06:49 rivaroxaban [From Xarelto] AdvReac Severe Headache Verified 03/09/21 06:49 cephalexin [From Keflex] AdvReac Unknown Diarrhea, Verified 03/09/21 06:49 upset stomach, headache ciprofloxacin AdvReac Unknown Nausea, Verified 03/09/21 06:49 dyspepsia clarithromycin [From Biaxin] AdvReac Unknown GI, Verified 03/09/21 06:49 headache clavulanic acid AdvReac Unknown Diarrhea, Verified 03/09/21 06:49 [From Augmentin] upset stomach, headache lisinopril AdvReac Unknown Headache Verified 03/09/21 06:49 morphine AdvReac Unknown Hallucinati Verified 03/09/21 06:49 ons NSAIDS (Non-Steroidal AdvReac Unknown GI Verified 03/09/21 06:49 Anti-Inflamma dypepsia (tolerates Celebrex) propoxyphene [From Darvon] AdvReac Unknown Hallucinations, Verified 03/09/21 06:49 N/V steroid AdvReac Severe SOB, Uncoded 03/09/21 06:49 tachycardia, elevates BP (with oral + injectable) Home Medications Medication Instructions Recorded Confirmed Type acetaminophen 500 mg tablet 1,000 mg PO Q6H PRN tab 05/17/19 03/09/21 History magnesium 250 mg tablet 250 mg PO QAM 05/17/19 03/09/21 History omega-3 fatty acids 1,000 mg 2,000 mg PO QPM cap 05/17/19 03/09/21 History capsule cholecalciferol (vitamin D3) 25 5,000 units PO QAM cap 11/05/19 03/09/21 History mcg (1,000 unit) capsule lorazepam 0.5 mg tablet 0.5 mg BUCCAL HS PRN #30 tab 01/21/21 03/09/21 Rx Cbd With Thc Topical 1 dose TOPICAL QID PRN 01/30/21 03/09/21 History Marijuana Oil 1 dose PO QID PRN 01/30/21 03/09/21 History amlodipine 5 mg PO QAM 01/30/21 03/09/21 History ascorbic acid (vitamin C) 500 mg 500 mg PO QAM 01/30/21 03/09/21 History tablet celecoxib [Celebrex] 200 mg PO QAM 01/30/21 03/09/21 History multivitamin 1 tab PO QPM 01/30/21 03/09/21 History pantoprazole 40 mg PO QAM 01/30/21 03/09/21 History zinc sulfate 66 mg tablet 66 mg PO QPM 01/30/21 03/09/21 History elderberry fruit 200 mg capsule 200 mg PO DAILY cap 02/11/21 02/17/21 History Patient History Medical History Arthritis Cancer BCC (Lip) DVT (deep venous thrombosis) Remote LLE DVT (unknown etiology), previous anticoagulation since discontinued, no issues since GERD (gastroesophageal reflux disease) controlled History of cystocele History of Lyme disease 09/2019 s/p treatment Hypertension MVP (mitral valve prolapse) Remote hx per patient > no mitral valve disease noted per 03/20/18 echo Obesity Pelvic relaxation Prediabetes Surgical History H/O foot surgery H/O shoulder surgery H/O vaginal surgery Vaginal sling operation for stress incontinence H/O: hysterectomy History of back surgery L4-S1 fusion (2008) History of colonoscopy History of cystocele Anterior Colporrhaphy, repair of cystocele History of esophagogastroduodenoscopy (EGD) Hx of tooth extraction Family History Family/Other Heart disease Stroke Denies family history of Ovarian cancer Prostate cancer Myocardial infarction Breast cancer Colorectal cancer Social History Smoking Status: Former smoker Smoking End Date: Quit 20+ years ago; Second Hand Exposure: Yes; Do You Dip or Chew Tobacco: No; Hx Alcohol Use: Yes Alcohol type: hard liquor Hx Substance Use: Yes Substance Use Type Other:: Medical marijuana (card)- oral and topical (not using routinely) Preferred Language: Kyrgyz Communication Ability: Effective Visual Impairment: No Limitations Hearing Ability: Normal Strap Maker Required: No Beliefs That Will Affect Care: None marital status: Current Living Situation: Family current occupational status: retired Other Information That Helps Us Care for You: No Feels Safe at Home: Yes Safety Concerns: Feels Safe At This Time Childhood Exposure to Second-Hand Smoke: Yes Dental Care, Regularly: Yes Physical Activity Frequency: Daily Physical Activity Frequency Comment: regularly, walking Seatbelt Use: always Sunscreen Use: Yes Assistive Devices: Glasses Assistive Devices Comment: IMPLANTS/CROWNS-ALL OVER Review of Systems Review of Systems: All systems reviewed & are unremarkable except as noted in Subjective Physical Exam Physical Exam: GENERAL: Patient is lying in her bed with the head of bed elevated, she appears uncomfortable. HEENT: Head is atraumatic, normocephalic. EOM's intact. Facies symmetric. No perioral cyanosis. NECK: No JVD. JVP is at the level of the clavicle sitting upright. Carotid upstrokes are + 2 bilaterally. No bruits are noted. CHEST/LUNGS: Clear to auscultation throughout all lung vega. No wheezes, rales, or crackles. CVS: S1 and S2 are regular without obvious murmurs, gallops, or rubs. No ectopy noted. PMI is nonpalpable. No lifts, heaves, or thrills. No abdominal aortic or renal bruits. ABDOMINAL EXAM: Bowel sounds are present. No masses, organomegaly, or tenderness. EXTREMITIES: No clubbing or cyanosis. No edema. Intact posterior tibial and radial pulses bilaterally. NEUROLOGIC EXAM: Patient is awake and interactive. Answers questions appropriately. Speech is clear. L-spine dressed with JEFE drain in place. Results & Data Results & Data ([facility]) Vital Signs (Past 12 Hours) Vital Signs Temp Pulse Pulse Pulse Resp BP BP 03/09/21 12:54 36.5 C 92 H 18 132/80 03/09/21 12:29 36.6 C 93 H 18 127/82 03/09/21 12:00 89 14 141/86 H 03/09/21 11:50 36.2 C L 95 H 13 137/79 03/09/21 11:40 94 H 14 129/82 03/09/21 11:30 87 12 114/89 03/09/21 11:20 89 14 113/79 03/09/21 11:10 88 18 129/80 03/09/21 11:00 87 13 127/76 03/09/21 10:50 82 16 111/68 03/09/21 10:40 89 16 124/78 03/09/21 10:31 36.1 C L 88 20 135/77 03/09/21 06:41 36.8 C 90 97 H 139/101 H Pulse Ox 03/09/21 12:54 95 03/09/21 12:29 96 03/09/21 12:00 97 03/09/21 11:50 98 03/09/21 11:40 98 03/09/21 11:30 95 03/09/21 11:20 95 03/09/21 11:10 96 03/09/21 11:00 99 03/09/21 10:50 96 03/09/21 10:40 98 03/09/21 10:31 97 03/09/21 06:41 97 Laboratory Results Laboratory Results - last 24 hr 03/09/21 03/09/21 03/09/21 06:23 06:23 06:36 COVID-19 Eval Order Covid19 [facility] SARS-CoV-2, RNA, NAAT NEGATIVE Blood Type O Positive Antibody Screen NEGATIVE Crossmatch See Detail Diagnostic Findings L-SPINE FLUOROSCOPY 03/09/21: There are postsurgical changes of an L3-4, L4-5, and L5-S1 discectomies interbody fusions. There are pedicle screws present at the L2, L3, L4, S1 levels. IMPRESSION: -- Intraoperative fluoroscopic radiographs demonstrating an L2-S1 spinal decompression and fusion. Medications Administered Medications acetaminophen 500 mg tablet 1,000 mg PO Q6H PRN tab 05/17/19 [History Confirmed 03/09/21] magnesium 250 mg tablet 250 mg PO QAM 05/17/19 [History Confirmed 03/09/21] omega-3 fatty acids 1,000 mg capsule 2,000 mg PO QPM cap 05/17/19 [History Confirmed 03/09/21] cholecalciferol (vitamin D3) 25 mcg (1,000 unit) capsule 5,000 units PO QAM cap 11/05/19 [History Confirmed 03/09/21] lorazepam 0.5 mg tablet 0.5 mg BUCCAL HS PRN #30 tab 01/21/21 [Rx Confirmed 03/09/21] Cbd With Thc Topical 1 dose TOPICAL QID PRN 01/30/21 [History Confirmed 03/09/21] Marijuana Oil 1 dose PO QID PRN 01/30/21 [History Confirmed 03/09/21] amlodipine 5 mg PO QAM 01/30/21 [History Confirmed 03/09/21] ascorbic acid (vitamin C) 500 mg tablet 500 mg PO QAM 01/30/21 [History Confirmed 03/09/21] celecoxib [Celebrex] 200 mg PO QAM 01/30/21 [History Confirmed 03/09/21] multivitamin 1 tab PO QPM 01/30/21 [History Confirmed 03/09/21] pantoprazole 40 mg PO QAM 01/30/21 [History Confirmed 03/09/21] zinc sulfate 66 mg tablet 66 mg PO QPM 01/30/21 [History Confirmed 03/09/21] elderberry fruit 200 mg capsule 200 mg PO DAILY cap 02/11/21 [History Confirmed 02/17/21] Home Medications Acetaminophen (Acetaminophen 500 Mg Tab) 1,000 mg PO PREOP ANUSHKA Stop: 03/09/21 18:00 Last Admin: 03/09/21 07:23 Dose: 1,000 mg Documented by: Acetaminophen (Acetaminophen 500 Mg Tab) 1,000 mg PO Q8H PRN PRN Reason: MILD Pain Scale 1,2,3 & Pre PT Stop: 04/08/21 12:23 Al Hydrox/Mg Hydrox/Simethicone (Aluminum/Magnesium Susp 30 Ml Udc) 30 ml PO Q6H PRN PRN Reason: Dyspepsia Stop: 04/08/21 12:23 Amlodipine Besylate (Amlodipine Besylate 5 Mg Tab) 5 mg PO QAM ANUSHKA Stop: 04/09/21 08:59 Ascorbic Acid (Ascorbic Acid 500 Mg Tab) 500 mg PO QAM ANUSHKA Stop: 04/09/21 08:59 Atropine Sulfate (Atropine Sulfate 0.1 Mg/Ml 10ml Syr) 0.5 mg IV Q1M PRN PRN Reason: PACU Use-HR<40 &/or Bradycardi Stop: 03/09/21 15:39 Bisacodyl (Bisacodyl 10 Mg Supp) 10 mg NC DAILY PRN PRN Reason: Constipation Stop: 04/10/21 10:17 Celecoxib (Celebrex 200 Mg Cap) 200 mg PO PREOP ANUSHKA Stop: 03/09/21 18:00 Last Admin: 03/09/21 07:23 Dose: 200 mg Documented by: Celecoxib (Celebrex 200 Mg Cap) 200 mg PO QAM ANUSHKA Stop: 04/09/21 08:59 Diphenhydramine HCl (Diphenhydramine Capsule 25 Mg Cap) 25 mg PO Q6H PRN PRN Reason: Allergic Rhinitis/Insomnia Stop: 04/08/21 12:23 Famotidine (Famotidine 20 Mg Tab) 20 mg PO Q12H PRN PRN Reason: Dyspepsia Stop: 04/08/21 12:23 Fentanyl Citrate (Fentanyl Citrate 100 Mcg/2 Ml Vial) 25 mcg IV Q5M PRN PRN Reason: PACU Use Only-Pain Stop: 03/09/21 15:39 Last Admin: 03/09/21 11:49 Dose: 25 mcg Documented by: Gabapentin (Gabapentin 300 Mg Cap) 300 mg PO PREOP ANUSHKA Stop: 03/09/21 18:00 Last Admin: 03/09/21 07:24 Dose: Not Given Documented by: Hydromorphone HCl (Hydromorphone Inj 1 Mg/Ml Syringe) 1 mg IV Q2H PRN PRN Reason: Pain Stop: 03/23/21 13:19 Hydroxyzine HCl (Hydroxyzine Hcl 25 Mg Tab) 25 mg PO Q8H PRN PRN Reason: Anxiety Stop: 04/08/21 12:23 Lactated Ringer's (Lr) 1,000 mls @ 15 mls/hr IV .Q24H ANUSHKA Stop: 03/10/21 05:59 Last Infusion: 03/09/21 07:45 Dose: Infused Documented by: Cefazolin Sodium (Ancef 2000mg) 2,000 mg in 15 mls @ 3.75 mls/min IV PREOP ANUSHKA; Protocol Stop: 03/09/21 18:00 Last Admin: 03/09/21 07:45 Dose: 3.75 mls/min Documented by: Promethazine HCl 6.25 mg/ (Sodium Chloride) 50.25 mls @ 204 mls/hr IV ONCE PRN PRN Reason: PACU Use Only-Nausea/Vomiting Stop: 03/09/21 15:39 Lactated Ringer's (Lr) 1,000 mls @ 100 mls/hr IV .Q10H ANUSHKA Stop: 03/10/21 06:00 Last Admin: 03/09/21 12:45 Dose: 100 mls/hr Documented by: Acetaminophen (Ofirmev) 1,000 mg in 100 mls @ 400 mls/hr IV Q8H PRN PRN Reason: Pain Rating 1-3 & Pre PT Stop: 03/10/21 10:18 Last Infusion: 03/09/21 13:06 Dose: Infused Documented by: Lorazepam (Ativan) 0.5 mg in 1 mls @ 1 mls/min IV Q6 PRN PRN Reason: Sedation/Anxiety Stop: 04/08/21 12:23 Clindamycin Phosphate 600 mg/ (Dextrose) 54 mls @ 100 mls/hr IV Q8H ANUSHKA Stop: 03/10/21 00:33 Promethazine HCl 12.5 mg/ (Sodium Chloride) 50.5 mls @ 202 mls/hr IV Q6H PRN PRN Reason: Nausea &/or Vomiting Stop: 04/08/21 12:23 Influenza Virus Vaccine Quadrival (Do Not Administer Flu Vaccine) 1 ea N/A PRN PRN PRN Reason: Notification Stop: 04/08/21 12:23 Labetalol HCl (Labetalol Hcl Iv 5 Mg/Ml 20ml) 5 mg IV Q5M PRN PRN Reason: PACU Use-SBP>160 or DBP>100 Stop: 03/09/21 15:39 Lorazepam (Lorazepam 0.5 Mg Tab) 0.5 mg PO Q6 PRN PRN Reason: sedation/anxiety Stop: 04/08/21 12:23 Magnesium Hydroxide (Magnesium Hydroxide Susp 30 Ml Udc) 30 ml PO Q24H PRN PRN Reason: Constipation Stop: 04/08/21 12:23 Magnesium Oxide (Magnesium Oxide 400 Mg Tab) 200 mg PO QAM ANUSHKA Stop: 04/09/21 08:59 Metoclopramide HCl (Metoclopramide Hcl Inj 5 Mg/Ml 2 Ml Vial) 10 mg IV Q6H PRN PRN Reason: Nausea &/or Vomiting Stop: 04/08/21 12:23 Multivitamins (Multivitamin Tab) 1 tab PO QPM ANUSHKA Stop: 04/08/21 20:59 Naloxone HCl (Naloxone Hcl 0.4 Mg/1 Ml Vial/Carp) 0.1 mg IV Q5M PRN PRN Reason: Oversedation/respiratory dep Stop: 04/08/21 12:23 Ondansetron HCl (Ondansetron Inj 2 Mg/Ml 2 Ml Vial) 4 mg IV ONCE PRN PRN Reason: PACU Use Only-Nausea/Vomiting Stop: 03/09/21 15:39 Ondansetron HCl (Ondansetron Inj 2 Mg/Ml 2 Ml Vial) 4 mg IV Q6H PRN PRN Reason: Nausea &/or Vomiting Stop: 04/08/21 12:23 Ondansetron HCl (Ondansetron 4 Mg Od Tab) 4 mg PO Q6H PRN PRN Reason: Nausea Stop: 04/08/21 12:23 Oxycodone HCl (Oxycodone Hcl Ir 5 Mg Tab (Immediate Release)) 5 mg PO Q4H PRN PRN Reason: Pain Stop: 03/23/21 13:16 Pantoprazole Sodium (Pantoprazole 40 Mg Tab) 40 mg PO QAM ANUSHKA Stop: 04/09/21 08:59 Pneumococcal Polyvalent Vaccine (Do Not Administer Pneumococcal Vaccine) 1 ea N/A PRN PRN PRN Reason: Notification Stop: 04/08/21 12:23 Polyethylene Glycol (Polyethylene (Miralax) 17 Gm Pack) 17 gm PO Q6 ANUSHKA Stop: 04/09/21 05:59 Senna/Docusate Sodium (Docusate Sodium/Senna 50/8.6mg Tab) 2 tab PO HS ANUSHKA Stop: 04/08/21 20:59 Sodium Biphosphate/Sodium Phosphate (Sod Phosphate/Sod Biphosphate Enema 132 Ml Btl) 132 ml NC ONE PRN PRN Reason: Constipation Stop: 04/08/21 12:23 Tramadol HCl (Tramadol Hcl 50 Mg Tablet) 50 - 100 mg PO Q4H PRN PRN Reason: Moderate-Severe pain & Pre PT Stop: 04/08/21 12:23 Last Admin: 03/09/21 12:50 Dose: 100 mg Documented by: Vitamin D (Cholecalciferol 1,000 Units 25 Mcg Tab) 5,000 units PO QAM ANUSHKA Stop: 04/09/21 08:59 Zinc Sulfate (Zinc Sulfate 220 Mg Capsule) 220 mg PO QPM ANUSHKA Stop: 04/08/21 20:59 PG Care Time/CCT Total # of Minutes Spent Total Time Spent with Patient: Total time spent is greater than 50% in coordination of care (as documented) at patient's floor/unit and/or counseling patient:40 Coding Level of Care Code 16689 Inpt Consult Level 4 Diagnoses Status post lumbar spine surgery for decompression of spinal cord Z98.890 Hypertension I10 Hypertension type: essential hypertension Prediabetes R73.03 GERD (gastroesophageal reflux disease) K21.9 Time Spent (min) 55 (1) Hypertension Hypertension type: essential hypertension Qualified Code(s): I10 - Essential (primary) hypertension
[2021-03-09] MEDS ORDERED: oxyCODONE HCL IR 5 MG TAB (IMMEDIATE RELEASE) PO PRN (13:17)
[2021-03-09] MEDS ORDERED: HYDROmorphone INJ 1 MG/ML SYRINGE IV PRN (13:20)
--- NOTE | 2021-03-09 14:10 | Anesthesiology Progress Note ---
Date of Service March 09, 2021 Anesthesia Post Procedure Vital Signs Vital Signs: Temp Pulse Pulse Pulse Resp BP BP 03/09/21 13:32 36.4 C L 87 18 137/82 03/09/21 12:54 36.5 C 92 H 18 132/80 03/09/21 12:29 36.6 C 93 H 18 127/82 03/09/21 12:00 89 14 141/86 H 03/09/21 11:50 36.2 C L 95 H 13 137/79 03/09/21 11:40 94 H 14 129/82 03/09/21 11:30 87 12 114/89 03/09/21 11:20 89 14 113/79 03/09/21 11:10 88 18 129/80 03/09/21 11:00 87 13 127/76 03/09/21 10:50 82 16 111/68 03/09/21 10:40 89 16 124/78 03/09/21 10:31 36.1 C L 88 20 135/77 03/09/21 06:41 36.8 C 90 97 H 139/101 H Pulse Ox 03/09/21 13:32 94 03/09/21 12:54 95 03/09/21 12:29 96 03/09/21 12:00 97 03/09/21 11:50 98 03/09/21 11:40 98 03/09/21 11:30 95 03/09/21 11:20 95 03/09/21 11:10 96 03/09/21 11:00 99 03/09/21 10:50 96 03/09/21 10:40 98 03/09/21 10:31 97 03/09/21 06:41 97 Pain Intensity Back: Pain Intensity: 9 Transfer of Care Handoff Completed per policy Notes Mental Status: alert / awake / arousable Patient Amnestic to Procedure: Yes Nausea / Vomiting: adequately controlled Pain: adequately controlled Airway Patency, RR, SpO2: stable & adequate BP & HR: stable & adequate Hydration State: stable & adequate Anesthetic Complications: no major complications apparent
[2021-03-09] MEDS: LORazepam 0.5 MG TAB PO PRN ×2 (14:59→21:20)
[2021-03-09] MEDS ORDERED: LORazepam 1 MG/2 ML VIAL IV PRN (15:02)
[2021-03-09] MEDS: oxyCODONE HCL IR 5 MG TAB (IMMEDIATE RELEASE) PO PRN ×2 (15:55→19:53)
[2021-03-09] MEDS: CLINDAMYCIN 600 MG in DEXTROSE 5% 50 ML IV SCH (16:09)
[2021-03-09] MEDS: DOCUSATE SODIUM/SENNA 50/8.6MG TAB PO SCH (21:20)
[2021-03-09] MEDS: ZINC SULFATE 220 MG CAPSULE PO SCH (21:20)
[2021-03-09] MEDS: MULTIVITAMIN TAB PO SCH (21:20)
[2021-03-10] MEDS: CLINDAMYCIN 600 MG in DEXTROSE 5% 50 ML IV SCH (00:11)
[2021-03-10] MEDS: oxyCODONE HCL IR 5 MG TAB (IMMEDIATE RELEASE) PO PRN ×5 (01:31→20:28)
[2021-03-10] MEDS: ACETAMINOPHEN 500 MG TAB PO PRN ×3 (03:16→22:29)
[2021-03-10] MEDS: POLYETHYLENE (MIRALAX) 17 GM PACK PO SCH ×3 (05:35→18:00)
[2021-03-10] MEDS: LORazepam 0.5 MG TAB PO PRN ×2 (08:12→15:37)
--- NOTE | 2021-03-10 08:15 | Orthopedic Progress Note ---
Date of Service March 10, 2021 Assessment & Plan (1) Neurogenic claudication due to lumbar spinal stenosis: Admission and Anticipated Discharge Date Admission Date: March 09, 2021 This time initiate physical therapy. She has been very concerned regarding narcotic medications for pain control. She is however trialing some at this time. Hopefully will be able to decrease this requirement in the next 24 to 48 hours. She would like to go home at discharge. Subjective Back pain controlled leg pain improved Physical Exam Physical Exam: Patient is sitting up in the bedside. Is good strength testing. Results & Data ([facility]) Vital Signs (Past 12 Hours) Vital Signs Temp Pulse Resp BP Pulse Ox 03/10/21 07:51 36.7 C 18 109/58 L 91 03/10/21 03:12 36.9 C 81 16 108/70 92 03/09/21 23:16 36.7 C 80 16 107/67 92
[2021-03-10 08:24] LABS: Hematocrit (blood only) 31.3 % (37-47); Hemoglobin 10.3 g/dL (12.0-16.0); Immature Granulocytes # (auto) 0.02 K/uL (0.00-0.02); Immature Granulocytes % (auto) 0.2 %; Lymphocytes % (auto) 16.2 %; Mean Corpuscular Hemoglobin 30.4 pg (25-34); Mean Corpuscular Hgb Conc 32.9 g/dL (32-36); Mean Corpuscular Volume 92.3 fL (80-100); Mean Platelet Volume 9.7 fL (7.4-10.4); Monocytes # (auto) 1.09 K/uL (0.11-0.59); Monocytes % (auto) 8.4 %; Neutrophils # (auto) 9.72 K/uL (1.4-6.5); Neutrophils % (auto) 75.2 %; Platelet Count 204 K/uL (130-400); RDW Coefficient of Variation 12.7 % (11.5-14.5); Red Blood Count 3.39 M/uL (4.2-5.4); White Blood Count 12.93 K/uL (4.8-10.8)
[2021-03-10 08:38] LABS: BUN Creatinine Ratio 16.3 (10-20); Calcium 8.7 mg/dl (8.5-10.1); Creatinine Clr Calc Pharmacy 74.2 ml/min; Est GFR (African American) 90.5 ml/min; Est GFR (Non-African American) 78.1 ml/min; Potassium 3.8 mmol/L (3.5-5.1)
[2021-03-10] MEDS: MAGNESIUM OXIDE 400 MG TAB PO SCH (09:32)
[2021-03-10] MEDS: PANTOprazole 40 MG TAB PO SCH (09:32)
[2021-03-10] MEDS: dexAMETHasone 8 MG in SYRINGE 0 ML IV SCH (09:32)
[2021-03-10] MEDS: CeleBREX 200 MG CAP PO SCH (09:32)
[2021-03-10] MEDS: CHOLECALCIFEROL 1,000 UNITS 25 MCG TAB PO SCH (09:32)
[2021-03-10] MEDS: amLODIPine BESYLATE 5 MG TAB PO SCH (09:32)
[2021-03-10] MEDS: ASCORBIC ACID 500 MG TAB PO SCH (09:32)
[2021-03-10] MEDS: MULTIVITAMIN TAB PO SCH (20:27)
[2021-03-10] MEDS: ZINC SULFATE 220 MG CAPSULE PO SCH (20:27)
[2021-03-10] MEDS: DOCUSATE SODIUM/SENNA 50/8.6MG TAB PO SCH (20:29)
[2021-03-11] MEDS: oxyCODONE HCL IR 5 MG TAB (IMMEDIATE RELEASE) PO PRN ×6 (00:49→20:57)
[2021-03-11] MEDS: POLYETHYLENE (MIRALAX) 17 GM PACK PO SCH ×5 (00:49→23:25)
--- NOTE | 2021-03-11 06:38 | Hospitalist Progress Note ---
Date of Service March 11, 2021 Assessment & Plan (1) Status post lumbar spine surgery for decompression of spinal cord: (2) Hypertension: (3) Prediabetes: (4) GERD (gastroesophageal reflux disease): Admission and Anticipated Discharge Date Admission Date: March 09, 2021 Results & Data Results & Data ([facility]) Vital Signs (Past 12 Hours) Vital Signs Temp Pulse Resp BP Pulse Ox 03/10/21 22:19 36.8 C 80 17 98/63 L 90 PG Care Time/CCT Total # of Minutes Spent Total Time Spent with Patient: Total time spent is greater than 50% in coordination of care (as documented) at patient's floor/unit and/or counseling patient: Coding Diagnoses Status post lumbar spine surgery for decompression of spinal cord Z98.890 Hypertension I10 Hypertension type: essential hypertension Prediabetes R73.03 GERD (gastroesophageal reflux disease) K21.9 (1) Hypertension Hypertension type: essential hypertension Qualified Code(s): I10 - Essential (primary) hypertension
[2021-03-11] MEDS: ACETAMINOPHEN 500 MG TAB PO PRN ×2 (07:20→15:09)
[2021-03-11] MEDS: LORazepam 0.5 MG TAB PO PRN (07:25)
[2021-03-11] MEDS: CeleBREX 200 MG CAP PO SCH (08:11)
[2021-03-11] MEDS: PANTOprazole 40 MG TAB PO SCH (08:14)
[2021-03-11] MEDS: CHOLECALCIFEROL 1,000 UNITS 25 MCG TAB PO SCH (08:15)
[2021-03-11] MEDS: dexAMETHasone 8 MG in SYRINGE 0 ML IV SCH (08:15)
[2021-03-11] MEDS: amLODIPine BESYLATE 5 MG TAB PO SCH (08:15)
[2021-03-11] MEDS: ASCORBIC ACID 500 MG TAB PO SCH (08:15)
[2021-03-11] MEDS: MAGNESIUM OXIDE 400 MG TAB PO SCH (08:15)
--- NOTE | 2021-03-11 09:46 | Hospitalist Progress Note ---
Date of Service March 11, 2021 Assessment & Plan (1) Status post lumbar spine surgery for decompression of spinal cord: POD#2 L2 through L4 Decompression and Fusion Mrs. Snyder is a 70 year old female with a history of Hypertension, Prediabetes, Obesity, GERD, Mitral Valve Prolapse, Frequent PVC's, DJD, MTHFR Deficiency with prior DVT, and Lumbar Degenerative Disc Disease who underwent L2 through L4 Decompression and Fusion on 03/09/21. Patient had significant back pain overnight but she remains very hesitant to take any opiates for fear that she will quit breathing. She received oral Oxycodone and Lorazepam this morning and her back pain is significantly better but she feels like a "wet wash cloth" and is afraid that she will "stop breathing". I have reassured her that she is being monitored closely -- her O2 saturations, respiratory rate, HR, and BP are appropriate and stable. Additionally, she refuses the steroids as ordered by ortho. Patient denies any radiation of her back pain into either leg. She denies any urinary or fecal incontinence. Patient denies any weakness, numbness, or tingling of her legs. Patient denies any nausea or vomiting. Recommend the followin. Continue IV Acetaminophen as needed. 2. Continue Tramadol as needed. 3. Continue Oxycodone IR 5 to 10 mg every 4 hours as needed for pain rated at or > 5/10. 4. Continue Dilaudid 1 mg every 2 hours as needed for pain rated at or > 7/10. 5. Ongoing DVT prophylaxis with SCD's, compression stockings, ambulation. 6. Continue Lorazepam as needed for anxiety. (2) Hypertension: BP is well controlled. -- Continue Amlodipine 5 mg daily. -- Continue to monitor VS every shift. (3) Prediabetes: -- Monitor daily labs. -- BSG's throughout this hospitalization have ranged between 81 to 113 mg/dl. (4) GERD (gastroesophageal reflux disease): -- Continue Protonix 40 mg daily. (5) Acute blood loss anemia: Acute blood loss and hemodilution related anemia Hemoglobin dropped to 10 from 14. Patient appears to be asymptomatic. Admission and Anticipated Discharge Date Admission Date: March 09, 2021 Subjective Ms. Snyder remains anxious about several things but she is medically stable. Patient had significant back pain overnight but she is very hesitant to take any opiates for fear that she will quit breathing. She received oral Oxycodone and Lorazepam this morning and her back pain is significantly better but she feels like a "wet wash cloth and weak" and is afraid that she will "stop breathing". Patient does not have any radiation of her back pain into either leg. No urinary or fecal incontinence. No weakness, numbness, or tingling of her legs. Patient denies any nausea or vomiting. Review of Systems Review of Systems: All systems reviewed & are unremarkable except as noted in Subjective Physical Exam Physical Exam: BP 136/88. GENERAL: Patient appears anxious. HEENT: Head is atraumatic, normocephalic. EOM's intact. Facies symmetric. No perioral cyanosis. NECK: No JVD. JVP is at the level of the clavicle sitting upright. Carotid upstrokes are + 2 bilaterally. No bruits are noted. CHEST/LUNGS: Clear to auscultation throughout all lung vega. No wheezes, rales, or crackles. CVS: S1 and S2 are regular without obvious murmurs, gallops, or rubs. No ectopy noted. PMI is nonpalpable. No lifts, heaves, or thrills. No abdominal aortic or renal bruits. ABDOMINAL EXAM: Bowel sounds are present. No masses, organomegaly, or tenderness. EXTREMITIES: No clubbing or cyanosis. No edema. Intact posterior tibial and radial pulses bilaterally. Calves are soft, non-tender. NEUROLOGIC EXAM: Patient is awake and interactive. Answers questions appropriately. Speech is clear. Able to log-roll, and sit herself at the side of the bed. L-spine dressed with surgical drain in place. Results & Data Results & Data ([facility]) Vital Signs (Past 12 Hours) Vital Signs Temp Pulse Resp BP Pulse Ox 03/11/21 07:16 36.8 C 91 H 16 129/84 94 03/10/21 22:19 36.8 C 80 17 98/63 L 90 Medications Administered Medications acetaminophen 500 mg tablet 1,000 mg PO Q6H PRN tab 05/17/19 [History Confirmed 03/09/21] magnesium 250 mg tablet 250 mg PO QAM 05/17/19 [History Confirmed 03/09/21] omega-3 fatty acids 1,000 mg capsule 2,000 mg PO QPM cap 05/17/19 [History Confirmed 03/09/21] cholecalciferol (vitamin D3) 25 mcg (1,000 unit) capsule 5,000 units PO QAM cap 11/05/19 [History Confirmed 03/09/21] lorazepam 0.5 mg tablet 0.5 mg BUCCAL HS PRN #30 tab 01/21/21 [Rx Confirmed 03/09/21] Cbd With Thc Topical 1 dose TOPICAL QID PRN 01/30/21 [History Confirmed 03/09/21] Marijuana Oil 1 dose PO QID PRN 01/30/21 [History Confirmed 03/09/21] amlodipine 5 mg PO QAM 01/30/21 [History Confirmed 03/09/21] ascorbic acid (vitamin C) 500 mg tablet 500 mg PO QAM 01/30/21 [History Confirmed 03/09/21] celecoxib [Celebrex] 200 mg PO QAM 01/30/21 [History Confirmed 03/09/21] multivitamin 1 tab PO QPM 01/30/21 [History Confirmed 03/09/21] pantoprazole 40 mg PO QAM 01/30/21 [History Confirmed 03/09/21] zinc sulfate 66 mg tablet 66 mg PO QPM 01/30/21 [History Confirmed 03/09/21] elderberry fruit 200 mg capsule 200 mg PO DAILY cap 02/11/21 [History Confirmed 02/17/21] Home Medications Acetaminophen (Acetaminophen 500 Mg Tab) 1,000 mg PO Q8H PRN PRN Reason: MILD Pain Scale 1,2,3 & Pre PT Stop: 04/08/21 12:23 Last Admin: 03/11/21 07:20 Dose: 1,000 mg Documented by: Al Hydrox/Mg Hydrox/Simethicone (Aluminum/Magnesium Susp 30 Ml Udc) 30 ml PO Q6H PRN PRN Reason: Dyspepsia Stop: 04/08/21 12:23 Amlodipine Besylate (Amlodipine Besylate 5 Mg Tab) 5 mg PO QAM [facility] Stop: 04/09/21 08:59 Last Admin: 03/11/21 08:15 Dose: Not Given Documented by: Ascorbic Acid (Ascorbic Acid 500 Mg Tab) 500 mg PO QAM [facility] Stop: 04/09/21 08:59 Last Admin: 03/11/21 08:15 Dose: Not Given Documented by: Bisacodyl (Bisacodyl 10 Mg Supp) 10 mg WA DAILY PRN PRN Reason: Constipation Stop: 04/10/21 10:17 Celecoxib (Celebrex 200 Mg Cap) 200 mg PO QAM [facility] Stop: 04/09/21 08:59 Last Admin: 03/11/21 08:11 Dose: 200 mg Documented by: Diphenhydramine HCl (Diphenhydramine Capsule 25 Mg Cap) 25 mg PO Q6H PRN PRN Reason: Allergic Rhinitis/Insomnia Stop: 04/08/21 12:23 Famotidine (Famotidine 20 Mg Tab) 20 mg PO Q12H PRN PRN Reason: Dyspepsia Stop: 04/08/21 12:23 Hydromorphone HCl (Hydromorphone Inj 1 Mg/Ml Syringe) 1 mg IV Q2H PRN PRN Reason: Pain Stop: 03/23/21 13:19 Hydroxyzine HCl (Hydroxyzine Hcl 25 Mg Tab) 25 mg PO Q8H PRN PRN Reason: Anxiety Stop: 04/08/21 12:23 Lorazepam (Ativan) 0.5 mg in 1 mls @ 1 mls/min IV Q6 PRN PRN Reason: Sedation/Anxiety Stop: 04/08/21 12:23 Promethazine HCl 12.5 mg/ (Sodium Chloride) 50.5 mls @ 202 mls/hr IV Q6H PRN PRN Reason: Nausea &/or Vomiting Stop: 04/08/21 12:23 Lorazepam (Ativan) 1 mg in 2 mls @ 0.5 mls/min IV Q8H PRN PRN Reason: Anxiety Stop: 04/08/21 15:01 Dexamethasone 8 mg/ Syringe 2 mls @ 1 mls/min IV DAILY [facility] Stop: 04/09/21 08:59 Last Admin: 03/11/21 08:15 Dose: Not Given Documented by: Influenza Virus Vaccine Quadrival (Do Not Administer Flu Vaccine) 1 ea N/A PRN PRN PRN Reason: Notification Stop: 04/08/21 12:23 Lorazepam (Lorazepam 0.5 Mg Tab) 0.5 mg PO Q6 PRN PRN Reason: sedation/anxiety Stop: 04/08/21 12:23 Last Admin: 03/11/21 07:25 Dose: 0.5 mg Documented by: Magnesium Hydroxide (Magnesium Hydroxide Susp 30 Ml Udc) 30 ml PO Q24H PRN PRN Reason: Constipation Stop: 04/08/21 12:23 Magnesium Oxide (Magnesium Oxide 400 Mg Tab) 200 mg PO QAM [facility] Stop: 04/09/21 08:59 Last Admin: 03/11/21 08:15 Dose: Not Given Documented by: Metoclopramide HCl (Metoclopramide Hcl Inj 5 Mg/Ml 2 Ml Vial) 10 mg IV Q6H PRN PRN Reason: Nausea &/or Vomiting Stop: 04/08/21 12:23 Multivitamins (Multivitamin Tab) 1 tab PO QPM [facility] Stop: 04/08/21 20:59 Last Admin: 03/10/21 20:27 Dose: Not Given Documented by: Naloxone HCl (Naloxone Hcl 0.4 Mg/1 Ml Vial/Carp) 0.1 mg IV Q5M PRN PRN Reason: Oversedation/respiratory dep Stop: 04/08/21 12:23 Ondansetron HCl (Ondansetron Inj 2 Mg/Ml 2 Ml Vial) 4 mg IV Q6H PRN PRN Reason: Nausea &/or Vomiting Stop: 04/08/21 12:23 Last Admin: 03/09/21 13:38 Dose: 4 mg Documented by: Ondansetron HCl (Ondansetron 4 Mg Od Tab) 4 mg PO Q6H PRN PRN Reason: Nausea Stop: 04/08/21 12:23 Oxycodone HCl (Oxycodone Hcl Ir 5 Mg Tab (Immediate Release)) 10 mg PO Q4H PRN PRN Reason: Pain Stop: 03/23/21 13:16 Last Admin: 03/11/21 08:11 Dose: 10 mg Documented by: Pantoprazole Sodium (Pantoprazole 40 Mg Tab) 40 mg PO [facility] Stop: 04/09/21 08:59 Last Admin: 03/11/21 08:14 Dose: 40 mg Documented by: Pneumococcal Polyvalent Vaccine (Do Not Administer Pneumococcal Vaccine) 1 ea N/A PRN PRN PRN Reason: Notification Stop: 04/08/21 12:23 Polyethylene Glycol (Polyethylene (Miralax) 17 Gm Pack) 17 gm PO Q6 [facility] Stop: 04/09/21 05:59 Last Admin: 03/11/21 05:59 Dose: 17 gm Documented by: Senna/Docusate Sodium (Docusate Sodium/Senna 50/8.6mg Tab) 2 tab PO HS [facility] Stop: 04/08/21 20:59 Last Admin: 03/10/21 20:29 Dose: 2 tab Documented by: Sodium Biphosphate/Sodium Phosphate (Sod Phosphate/Sod Biphosphate Enema 132 Ml Btl) 132 ml WA ONE PRN PRN Reason: Constipation Stop: 04/08/21 12:23 Tramadol HCl (Tramadol Hcl 50 Mg Tablet) 50 - 100 mg PO Q4H PRN PRN Reason: Moderate-Severe pain & Pre PT Stop: 04/08/21 12:23 Last Admin: 03/09/21 12:50 Dose: 100 mg Documented by: Vitamin D (Cholecalciferol 1,000 Units 25 Mcg Tab) 5,000 units PO QAM [facility] Stop: 04/09/21 08:59 Last Admin: 03/11/21 08:15 Dose: Not Given Documented by: Zinc Sulfate (Zinc Sulfate 220 Mg Capsule) 220 mg PO QPM [facility] Stop: 04/08/21 20:59 Last Admin: 03/10/21 20:27 Dose: Not Given Documented by: PG Care Time/CCT Total # of Minutes Spent Total Time Spent with Patient: Total time spent is greater than 50% in coordination of care (as documented) at patient's floor/unit and/or counseling patient:35 Coding Level of Care Code 14972 Subseq Hosp Care Lvl 3 Diagnoses Status post lumbar spine surgery for decompression of spinal cord Z98.890 Hypertension I10 Hypertension type: essential hypertension Prediabetes R73.03 GERD (gastroesophageal reflux disease) K21.9 Acute blood loss anemia D62 Time Spent (min) 50 (1) Hypertension Hypertension type: essential hypertension Qualified Code(s): I10 - Essential (primary) hypertension
[2021-03-11] MEDS ORDERED: bisacodyL 10 MG SUPP PR PRN (10:18)
--- NOTE | 2021-03-11 13:44 | Orthopedic Progress Note ---
Date of Service March 11, 2021 Assessment & Plan (1) Neurogenic claudication due to lumbar spinal stenosis: Admission and Anticipated Discharge Date Admission Date: March 09, 2021 At this time continue physical therapy monitor her JEFE output hopefully discharge home in next few days with home health. Subjective Patient complaining mostly of back pain. No leg pain. Physical Exam Physical Exam: On exam she is better at this time having returned from therapy. She is good strength testing. Results & Data ([facility]) Vital Signs (Past 12 Hours) Vital Signs Temp Pulse Resp BP Pulse Ox 03/11/21 07:16 36.8 C 91 H 16 129/84 94
[2021-03-11] MEDS: ZINC SULFATE 220 MG CAPSULE PO SCH (20:58)
[2021-03-11] MEDS: DOCUSATE SODIUM/SENNA 50/8.6MG TAB PO SCH (20:58)
[2021-03-11] MEDS: MULTIVITAMIN TAB PO SCH (20:58)
[2021-03-12] MEDS: oxyCODONE HCL IR 5 MG TAB (IMMEDIATE RELEASE) PO PRN ×5 (03:13→22:17)
[2021-03-12] MEDS: POLYETHYLENE (MIRALAX) 17 GM PACK PO SCH (04:35)
[2021-03-12] MEDS: ACETAMINOPHEN 500 MG TAB PO PRN ×2 (05:28→13:58)
[2021-03-12] MEDS: dexAMETHasone 8 MG in SYRINGE 0 ML IV SCH (07:24)
[2021-03-12] MEDS: ASCORBIC ACID 500 MG TAB PO SCH (07:25)
[2021-03-12] MEDS: MAGNESIUM OXIDE 400 MG TAB PO SCH (07:25)
[2021-03-12] MEDS: CHOLECALCIFEROL 1,000 UNITS 25 MCG TAB PO SCH (07:25)
[2021-03-12] MEDS: PANTOprazole 40 MG TAB PO SCH (07:31)
[2021-03-12] MEDS: amLODIPine BESYLATE 5 MG TAB PO SCH (07:31)
[2021-03-12] MEDS: CeleBREX 200 MG CAP PO SCH (07:31)
--- NOTE | 2021-03-12 10:41 | Discharge Summary ---
Date of Service March 12, 2021 Admission HPI Per Admitting Provider This is a 62-year-old female well-known to me the presents with chronic persistent back and leg pain. Failing extensive course of nonoperative care she is here for surgical invention. Principal Diagnosis Lumbar spinal stenosis with neurogenic claudication Discharge Data Allergies Allergy/AdvReac Type Severity Reaction Status Date / Time amoxicillin [From Augmentin] Allergy Unknown Unknown Verified 03/09/21 06:49 bupropion [From Zyban] Allergy Unknown Stroke-like Verified 03/09/21 06:49 symptoms (Leg/arm numbness) erythromycin base Allergy Unknown Unknown Verified 03/09/21 06:49 oxycodone Allergy Unknown Unknown Verified 03/09/21 06:49 rivaroxaban [From Xarelto] AdvReac Severe Headache Verified 03/09/21 06:49 cephalexin [From Keflex] AdvReac Unknown Diarrhea, Verified 03/09/21 06:49 upset stomach, headache ciprofloxacin AdvReac Unknown Nausea, Verified 03/09/21 06:49 dyspepsia clarithromycin [From Biaxin] AdvReac Unknown GI, Verified 03/09/21 06:49 headache clavulanic acid AdvReac Unknown Diarrhea, Verified 03/09/21 06:49 [From Augmentin] upset stomach, headache lisinopril AdvReac Unknown Headache Verified 03/09/21 06:49 morphine AdvReac Unknown Hallucinati Verified 03/09/21 06:49 ons NSAIDS (Non-Steroidal AdvReac Unknown GI Verified 03/09/21 06:49 Anti-Inflamma dypepsia (tolerates Celebrex) propoxyphene [From Darvon] AdvReac Unknown Hallucinations, Verified 03/09/21 06:49 N/V steroid AdvReac Severe SOB, Uncoded 03/09/21 06:49 tachycardia, elevates BP (with oral + injectable) Consultations 03/09/21 12:43 Consult Hospitalist Routine Procedures Performed Operation Date: 03/09/21 07:45 Actual Procedures p L2-L4 Decompression/Fusion, Spinal Cord Monitoring - César Lorenzo DO s L4-S1 Hardware Removal, - César Lorenzo DO Ordered Studies 03/09/21 07:45 FL lumbar spine 2-3V Routine Hospital Course (1) Neurogenic claudication due to lumbar spinal stenosis: Patient went lumbar decompression fusion tolerates well second orthopedic for postoperative. Postop day 1 she was up and ambulating progressed to postop day #2 on postop day 3 she was improving + postop day 4 pain well controlled JEFE drain decreasing probably. Excellent strength testing. Subsequent discharge home. Discharge orders instructions from the chart for further review. Total Time Total Time Spent Total Time Spent (In Minutes): 20 minutes Discharge Plan Discharge Items Patient Disposition: Home - Home Health Services Reason For Visit: Radiculopathy, Lumbar Region Discharge Diagnosis: Lumbar spinal stenosis with radiculopathy Activity: As commented below Non-emergency contact: Primary Care Provider Call non-emergency contact if: you have any medication questions Follow-up/Referrals: Delia Ortiz MD [Primary Care Provider] - Diet: Regular Addtl Attending Provider Instructions: ACTIVITY RECOMMENDATIONS: SELF CARE INSTRUCTIONS AFTER THORACIC/LUMBAR FUSIONS 1. You may walk to your tolerance. It is good exercise for your legs and back. Expect some back and intermittent leg aches and pains. 2. You may perform "counter-top" level activities (make a sandwich, adria with a project, etc.). 3. No bending or lifting of more than 10 pounds or back twisting of any nature (roll like a log when turning in bed). 4. You may ride in a car for 20-30 minutes at a time. No driving until after your first visit with your doctor. 5. Frequent changes of position and restricting sitting to 30 minutes at a time will help limit the amount of back spasms and stiffness you may experience. 6. You may discontinue the use of ambulatory aids (cane, crutches, etc.) once your strength and confidence allow. 7. You may train braker the shower and let water strike your incision when you arrive home at least once daily. Do not take a tub bath, sit in a hot tub or go into a swimming pool until after your first recheck in the office. SPECIAL CARE INSTRUCTIONS: VERY IMPORTANT TO READ AND REVIEW A. Your surgical incision has been closed with a cosmetic suture under the skin that will dissolve in about 6 weeks. In 14 days, you can use a pair of clean scissors and cut the suture that is left outside of the skin at the ends of your incision. 1. The small skin tapes can be removed 7 days after surgery if they have not fallen off by that point. 2. You may keep the wound open to air as much as possible to promote healing after post-op day number 5 unless told otherwise by your doctor. 3. If you think the wound looks like it is becoming infected (redness or worsening drainage) and/or you are experiencing fever, chill or worsening back pain and muscle spasms, contact the office so that we may evaluate you as soon as possible. B. Complications are uncommon, but please contact us if you have any signs or symptoms of: 1. wound infection (fever higher than 102.5 degrees F, redness, separation of wound, drainage, or increasing pain from the incision) 2. blood clots in legs (pain, swelling, redness and warmth in legs) 3. urinary tract infection (fever higher than 102.5 degrees F, burning upon urination or increased frequency of urination) 4. nerve problems (inability to walk on your toes or heels, numbness, loss of bowel or bladder control) 5. any other symptoms that concern you C. Please call the office at if you have any concerns or questions about your operation or recovery. D. No smoking! Smoking drastically decreases the chance of a solid fusion. E. Do not take any anti-inflammatory medications (Indocin, Advil, Motrin, Aspirin, Naprosyn, etc.) as these may inhibit the chance of a solid fusion. Tylenol is okay to take for pain. MANAGING PAIN AFTER SPINAL SURGERY 1. Narcotic medication is intended for short-term use and will be provided for surgical pain. Surgical pain usually lasts for a period of 4-6 weeks. Narcotic medication includes Percocet, Vicodin, Darvocet, Tylenol #3 or Lortab. 2. Longer-term pain is more appropriately treated with non-narcotic medication such as Tylenol ES. 3. Muscle spasm is not appropriately treated with narcotics. Muscle relaxers such as Soma, Flexeril or Skelaxin can be used along with Tylenol ES. 4. Remember that we all live with some "aches and pains". This is not unusual or uncommon after an injury or as we get older. a. Back pain is expected and may include muscle spasms for 4 to 6 weeks after surgery. The pain should gradually improve. If the pain worsens for no apparent reason, please contact the office. b. Intermittent leg pain may also be experienced and should not be concerned about unless it worsens for no apparent reason. If so, please contact the office. 5. We will provide appropriate medication within the normal guidelines of their prescribed use. We will also be very cautious and aware of potential abuse and extended duration of patients' medication needs. a. Pain medications are for your comfort and to assist with sleep and rest so that the tissue can heal. They are not provided in order to return to normal activity and should not be used through the day. To do so or worsening pain at night can result from ongoing tissue damage and development of tolerance to the prescribed medicine. 6. Please allow 2-3 days to process refills. Prescriptions will not be mailed but must be picked up at the office. FOLLOW UP VISIT: Keep your scheduled follow-up appointment. Any questions, please call the office at . Pending Studies at Discharge: No Stand-Alone Forms: My [employer], Smoking Cessation Medications and DC Order Prescriptions: New tramadol 50 mg tablet 50 mg PO Q6H PRN (Reason: pain, moderate) Qty: 30 RF: 0 oxycodone 5 mg tablet 5 mg PO Q6H PRN (Reason: pain, severe) Qty: 30 RF: 0 Continued Zinc-15 66 mg tablet 66 mg PO QPM RF: 0 ascorbic acid (vitamin C) 500 mg tablet 500 mg PO QAM RF: 0 lorazepam 0.5 mg tablet 0.5 mg BUCCAL HS PRN (Reason: anxiety) Qty: 30 RF: 0 acetaminophen [Tylenol Extra Strength] 500 mg tablet 1,000 mg PO Q6H PRN (Reason: Pain) RF: 0 omega-3 fatty acids [Fish Oil Concentrate] 1,000 mg capsule 2,000 mg PO QPM RF: 0 magnesium 250 mg tablet 250 mg PO QAM RF: 0 cholecalciferol (vitamin D3) 25 mcg (1,000 unit) capsule 5,000 units PO QAM RF: 0 elderberry fruit 200 mg capsule 200 mg PO DAILY RF: 0 celecoxib [Celebrex] 200 mg capsule 200 mg PO QAM RF: 0 amlodipine 5 mg tablet 5 mg PO QAM RF: 0 multivitamin Tablet 1 tab PO QPM RF: 0 pantoprazole 40 mg tablet,delayed release (DR/EC) 40 mg PO QAM RF: 0 Marijuana Oil 1 dose PO QID PRN (Reason: Pain) RF: 0 Cbd With Thc Topical 1 dose topical QID PRN (Reason: Pain) RF: 0 Discharge Orders: Discharge Order (Routine); Ordered 03/12/21 Ordered By: César Lorenzo Admission Data Admit Date/Time: 03/09/21 12:23 Attending Provider: César Lorenzo Admit Provider: César Lorenzo Primary Care Provider: Delia Ortiz V. Other Providers: [facility]
[2021-03-12] MEDS: traMADol HCL 50 MG TABLET PO PRN ×2 (16:00→20:06)
[2021-03-12] MEDS: DOCUSATE SODIUM/SENNA 50/8.6MG TAB PO SCH (20:06)
[2021-03-12] MEDS: ZINC SULFATE 220 MG CAPSULE PO SCH (20:07)
[2021-03-12] MEDS: MULTIVITAMIN TAB PO SCH (20:07)
[2021-03-13] MEDS: traMADol HCL 50 MG TABLET PO PRN ×2 (00:06→05:21)
[2021-03-13] MEDS: oxyCODONE HCL IR 5 MG TAB (IMMEDIATE RELEASE) PO PRN ×2 (02:23→07:46)
[2021-03-13] MEDS: CHOLECALCIFEROL 1,000 UNITS 25 MCG TAB PO SCH (08:52)
[2021-03-13] MEDS: dexAMETHasone 8 MG in SYRINGE 0 ML IV SCH (08:52)
[2021-03-13] MEDS: PANTOprazole 40 MG TAB PO SCH (08:52)
[2021-03-13] MEDS: ASCORBIC ACID 500 MG TAB PO SCH (08:52)
[2021-03-13] MEDS: MAGNESIUM OXIDE 400 MG TAB PO SCH (08:52)
[2021-03-13] MEDS: CeleBREX 200 MG CAP PO SCH (10:08)
[2021-03-13] MEDS: amLODIPine BESYLATE 5 MG TAB PO SCH (10:08)
[2021-03-13] MEDS: ACETAMINOPHEN 500 MG TAB PO PRN (10:35)
== END 2021-03-13 15:04 | disposition home health service (06) | DRG 454 ==
LOC: ASU 06:08 → 3E 12:23

== ENCOUNTER 2021-03-21 10:34 | Inpatient (IN) ==
--- NOTE | 2021-03-21 11:35 | Emergency Department Note ---
History of Present Illness General Chief complaint: Back Injury/Pain Stated complaint: BACK PAIN Time Seen by Provider: 03/21/21 11:15 Source: patient Mode of arrival: EMS Limitations: no limitations History of Present Illness Provider complaint: Back pain, status post surgery Onset (ago): week(s) Location: back Radiation: non-radiation Maximum Pain Intensity: 8 Quality: + constant Relieved By: + none Exacerbated By: + movement Associated symptoms: + denies other symptoms Treatments prior to arrival: other This is a 70-year-old female presents due to concern for worsening back pain. Patient did recently undergo her second spinal fusion by Dr. Lorenzo, and despite medications given at discharge has had persistent worsening pain. She has been in contact with Dr. Lorenzo who initially increased her gabapentin. She did see Dr. Lorenzo in the office on , and additional medication adjustments were made including a narcotic pain medication. This has not helped and when she recontacted contacted them today, she was instructed to come to the emergency room for additional evaluation and likely admission. Patient denies fevers or chills, incontinence, or abdominal pain. She states she does have some radiation of the pain into the left hip and onto the anterior left proximal lower extremity. She states there is some occasional paresthesias there also. Pt seen during a time of high acuity and national emergency pandemic while wearing PPE. Home Medications Medication Instructions Recorded Confirmed Type lorazepam 0.5 mg tablet 0.5 mg BUCCAL HS PRN #30 tab 01/21/21 03/21/21 Rx pantoprazole 40 mg PO QAM 01/30/21 03/21/21 History oxycodone 5 mg PO Q6H PRN #30 tab 03/11/21 03/21/21 Rx ondansetron 4 mg disintegrating 4 mg PO Q6H PRN #30 tab 03/16/21 03/21/21 Rx tablet gabapentin 300 mg PO QID 03/21/21 03/21/21 History ibuprofen [Advil] 600 mg PO QID 03/21/21 03/21/21 History sennosides [Senokot] 8.6 mg PO Q2D 03/21/21 03/21/21 History Allergies Allergy/AdvReac Type Severity Reaction Status Date / Time amoxicillin [From Augmentin] Allergy Unknown Unknown Verified 03/21/21 13:03 bupropion [From Zyban] Allergy Unknown Stroke-like Verified 03/21/21 13:03 symptoms (Leg/arm numbness) erythromycin base Allergy Unknown Unknown Verified 03/21/21 13:03 oxycodone Allergy Unknown Unknown Verified 03/21/21 13:03 rivaroxaban [From Xarelto] AdvReac Severe Headache Verified 03/21/21 13:03 cephalexin [From Keflex] AdvReac Unknown Diarrhea, Verified 03/21/21 13:03 upset stomach, headache ciprofloxacin AdvReac Unknown Nausea, Verified 03/21/21 13:03 dyspepsia clarithromycin [From Biaxin] AdvReac Unknown GI, Verified 03/21/21 13:03 headache clavulanic acid AdvReac Unknown Diarrhea, Verified 03/21/21 13:03 [From Augmentin] upset stomach, headache lisinopril AdvReac Unknown Headache Verified 03/21/21 13:03 morphine AdvReac Unknown Hallucinati Verified 03/21/21 13:03 ons NSAIDS (Non-Steroidal AdvReac Unknown GI Verified 03/21/21 13:03 Anti-Inflamma dypepsia (tolerates Celebrex) propoxyphene [From Darvon] AdvReac Unknown Hallucinations, Verified 03/21/21 13:03 N/V steroid AdvReac Severe SOB, Uncoded 03/21/21 13:03 tachycardia, elevates BP (with oral + injectable) Past Med/Surg History Medical History Arthritis Cancer BCC (Lip) DVT (deep venous thrombosis) Remote LLE DVT (unknown etiology), previous anticoagulation since discontinued, no issues since GERD (gastroesophageal reflux disease) controlled History of cystocele History of Lyme disease 09/2019 s/p treatment Hypertension MVP (mitral valve prolapse) Remote hx per patient > no mitral valve disease noted per 03/20/18 echo Obesity Pelvic relaxation Prediabetes Surgical History H/O foot surgery H/O shoulder surgery H/O vaginal surgery Vaginal sling operation for stress incontinence H/O: hysterectomy History of back surgery L4-S1 fusion (2008) History of colonoscopy History of cystocele Anterior Colporrhaphy, repair of cystocele History of esophagogastroduodenoscopy (EGD) Hx of tooth extraction Family History Family/Other Heart disease Stroke Denies family history of Ovarian cancer Prostate cancer Myocardial infarction Breast cancer Colorectal cancer Social History Smoking Status: Former smoker Second Hand Exposure: No; Do You Dip or Chew Tobacco: No; Tobacco Cessation Education Requested by Patient: No Hx Alcohol Use: Yes Alcohol type: hard liquor Hx Substance Use: No Preferred Language: Upper Sorbian Communication Ability: Effective Visual Impairment: No Limitations Hearing Ability: Normal Soccer 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 and A total of 10 systems reviewed and were otherwise negative Physical Exam Vital Signs Vital Signs - 24 hr 03/21/21 10:42 Temperature 36.8 C Temperature Source Oral Pulse Rate 79 Respiratory Rate 18 Blood Pressure 147/85 H Blood Pressure Mean 105 Pulse Oximetry 93 Oxygen Delivery Method Room Air Sepsis Recent Fever Within 48 Hours No Sepsis New/Unexplained Change in Mental Status No Sepsis Action Taken by Nursing No Action Required GENERAL: alert, uncomfortable appearing, well nourished, mild distress, non- toxic, laying right lateral recumbent EYE EXAM: normal conjunctiva, PERRL and EOM's grossly intact OROPHARYNX: no exudate, no erythema, lips, buccal mucosa, and tongue normal and mucous membranes are moist NECK: supple, no nuchal rigidity, no adenopathy, non-tender LUNGS: Clear to auscultation. Normal chest wall mechanics, no w/r/r HEART: no murmurs, S1 normal and S2 normal ABDOMEN: abdomen soft, non-tender, normo-active bowel sounds, no masses, no rebound or guarding. BACK: Back is symmetrical on inspection and there is no deformity, no CVA tenderness. Steri-Strips intact over the vertical lumbar incision noted in the midline, no dehiscence, no bleeding, no surrounding erythema. Area is stacker tender to palpation including bilateral paraspinal muscles. SKIN: no rashes and no bruising, no petechiae UPPER EXTREMITIES: upper extremities are grossly normal. FROM, nml pulses b/l. LOWER EXTREMITIES: No pitting edema. FROM, nml pulses b/l. NEURO EXAM: Normal sensorium, cranial nerves II-XII grossly intact, normal speech, no gross weakness of arms, unable to perform testing of lower extremities due to back pain. Gross sensation intact. Course Course 1130: Discussed with Dr. Lorenzo. He has already been placing orders to admit the patient for intractable pain. Patient will have IV placed in the ER and be started on IV Dilaudid. Administered Medications Acetaminophen (Acetaminophen 500 Mg Tab) 1,000 mg PO Q8H PRN PRN Reason: MILD Pain Scale 1,2,3 & Pre PT Stop: 04/22/21 16:36 Last Admin: 03/23/21 19:39 Dose: 1,000 mg Documented by: [id number] Amlodipine Besylate (Amlodipine Besylate 5 Mg Tab) 5 mg PO QAM [facility] Stop: 04/21/21 08:59 Last Admin: 03/23/21 09:08 Dose: 5 mg Documented by: [id number] Admin: 03/22/21 09:51 Dose: 5 mg Documented by: [id number] Admin: 03/21/21 16:10 Dose: 5 mg Documented by: [id number] Cyclobenzaprine HCl (Cyclobenzaprine Hcl 10 Mg Tab) 10 mg PO Q6 PRN PRN Reason: Muscle Spasm Stop: 04/21/21 10:04 Last Admin: 03/23/21 21:57 Dose: 10 mg Documented by: [id number] Admin: 03/22/21 21:06 Dose: 10 mg Documented by: [id number] Gabapentin (Gabapentin 400 Mg Cap) 400 mg PO QID [facility] Stop: 04/21/21 12:59 Last Admin: 03/23/21 21:54 Dose: 400 mg Documented by: [id number] Admin: 03/23/21 17:44 Dose: Not Given Documented by: [id number] Admin: 03/23/21 16:42 Dose: Not Given Documented by: [id number] Admin: 03/23/21 05:31 Dose: 400 mg Documented by: [id number] Admin: 03/22/21 21:07 Dose: Not Given Documented by: [id number] Admin: 03/22/21 18:09 Dose: 400 mg Documented by: [id number] Admin: 03/22/21 13:06 Dose: 400 mg Documented by: [id number] Hydromorphone HCl (Hydromorphone Inj 0.5 Mg/0.5 Ml Syr) 0.5 mg IV Q15M PRN PRN Reason: Pain Stop: 04/04/21 11:26 Last Admin: 03/22/21 02:58 Dose: 0.5 mg Documented by: [id number] Admin: 03/21/21 12:40 Dose: 0.5 mg Documented by: [id number] Hydromorphone HCl (Hydromorphone Inj 0.5 Mg/0.5 Ml Syr) 0.5 mg IV Q3H PRN PRN Reason: MOD pain (scale 4-6) & Pre PT Stop: 04/04/21 14:18 Last Admin: 03/21/21 23:26 Dose: 0.5 mg Documented by: [id number] Cefazolin Sodium (Ancef 2000mg) 2,000 mg in 15 mls @ 3.75 mls/min IV Q8H ANUSHKA; Protocol Stop: 03/24/21 05:03 Last Admin: 03/23/21 21:58 Dose: 3.75 mls/min Documented by: [id number] Lorazepam (Lorazepam 0.5 Mg Tab) 0.5 mg PO Q8H PRN PRN Reason: sedation/anxiety Stop: 04/22/21 16:36 Last Admin: 03/24/21 00:01 Dose: 0.5 mg Documented by: [id number] Oxycodone HCl (Oxycodone Hcl Ir 5 Mg Tab (Immediate Release)) 5 - 10 mg PO Q4H PRN PRN Reason: mod to severe pain Stop: 04/04/21 14:18 Last Admin: 03/23/21 21:58 Dose: 5 mg Documented by: [id number] Admin: 03/23/21 05:19 Dose: 5 mg Documented by: [id number] Admin: 03/22/21 21:06 Dose: 5 mg Documented by: [id number] Admin: 03/22/21 15:09 Dose: 5 mg Documented by: [id number] Admin: 03/22/21 09:12 Dose: 5 mg Documented by: [id number] Admin: 03/22/21 04:55 Dose: 10 mg Documented by: [id number] Admin: 03/21/21 20:44 Dose: 5 mg Documented by: [id number] Pantoprazole Sodium (Pantoprazole 40 Mg Tab) 40 mg PO QAM [facility] Stop: 04/21/21 08:59 Last Admin: 03/23/21 09:08 Dose: 40 mg Documented by: [id number] Admin: 03/22/21 09:03 Dose: 40 mg Documented by: [id number] Senna/Docusate Sodium (Docusate Sodium/Senna 50/8.6mg Tab) 2 tab PO HS ANUSHKA Stop: 04/22/21 20:59 Last Admin: 03/23/21 21:54 Dose: 2 tab Documented by: [id number] Discontinued Medications Acetaminophen (Acetaminophen 500 Mg Tab) 1,000 mg PO Q8H PRN PRN Reason: MILD Pain Scale 1,2,3 & Pre PT Stop: 04/20/21 14:18 Last Admin: 03/22/21 21:19 Dose: 1,000 mg Documented by: [id number] Admin: 03/22/21 06:20 Dose: 1,000 mg Documented by: [id number] Admin: 03/21/21 17:30 Dose: 1,000 mg Documented by: [id number] Bupivacaine HCl/Epinephrine Bitart (Bupivacaine/Epinephrine 0.5% Mpf 1:200,000 30 Ml Vial) 20 ml INJ ONCE ONE Stop: 03/23/21 13:52 Last Admin: 03/23/21 13:52 Dose: 20 ml Documented by: [id number] Cefazolin Sodium (Cefazolin 2,000 Mg/15 Ml Iv Push) Confirm Administered Dose 2,000 mg IV .STK-MED ONE Stop: 03/23/21 12:33 Last Admin: 03/23/21 12:53 Dose: 2,000 mg Documented by: [id number] Gabapentin (Gabapentin 300 Mg Cap) 300 mg PO TID [facility] Stop: 04/20/21 14:59 Last Admin: 03/22/21 09:51 Dose: 300 mg Documented by: [id number] Admin: 03/21/21 21:14 Dose: 300 mg Documented by: [id number] Admin: 03/21/21 14:35 Dose: 300 mg Documented by: [id number] Gentamicin Sulfate (Gentamicin Sulfate 40 Mg/Ml 2 Ml Vial) Confirm Administered Dose 240 mg .ROUTE .STK-MED ONE Stop: 03/23/21 13:23 Last Admin: 03/23/21 13:50 Dose: 240 mg Documented by: [id number] Lactated Ringer's (Lr) 1,000 mls @ 75 mls/hr IV .[id number] ANUSHKA Stop: 04/20/21 14:18 Last Infusion: 03/23/21 18:32 Dose: 0 mls/hr Documented by: [id number] Admin: 03/23/21 09:07 Dose: 75 mls/hr Documented by: [id number] Infusion: 03/23/21 07:25 Dose: 0 mls/hr Documented by: [id number] Admin: 03/22/21 18:05 Dose: 75 mls/hr Documented by: [id number] Infusion: 03/22/21 18:05 Dose: 0 mls/hr Documented by: [id number] Admin: 03/22/21 06:17 Dose: 75 mls/hr Documented by: [id number] Infusion: 03/22/21 06:17 Dose: 75 mls/hr Documented by: [id number] Admin: 03/21/21 17:13 Dose: 75 mls/hr Documented by: [id number] Cefazolin Sodium (Ancef 1000mg) 1,000 mg in 7.5 mls @ 2.5 mls/min IV ONCE ONE Stop: 03/23/21 13:54 Last Admin: 03/23/21 13:54 Dose: 1,000 mls/min Documented by: [id number] Lactated Ringer's (Lr) 1,000 mls @ 100 mls/hr IV .Q10H [facility]USHKA Stop: 04/22/21 16:36 Last Infusion: 03/24/21 00:01 Dose: 0 mls/hr Documented by: [id number] Admin: 03/23/21 17:44 Dose: 100 mls/hr Documented by: [id number] Lorazepam (Lorazepam 0.5 Mg Tab) 0.5 mg PO Q8H PRN PRN Reason: sedation/anxiety Stop: 04/20/21 14:18 Last Admin: 03/23/21 05:35 Dose: 0.5 mg Documented by: [id number] Admin: 03/22/21 11:41 Dose: 0.5 mg Documented by: [id number] Miscellaneous ( Floseal Hemostatic Matrix 10ml) 10 ml TOP ONCE ONE Stop: 03/23/21 13:48 Last Admin: 03/23/21 14:16 Dose: 4 ml Documented by: [id number] Senna/Docusate Sodium (Docusate Sodium/Senna 50/8.6mg Tab) 2 tab PO HS [facility]USHKA Stop: 04/20/21 20:59 Last Admin: 03/22/21 21:06 Dose: 2 tab Documented by: [id number] Admin: 03/21/21 20:44 Dose: 2 tab Documented by: [id number] Vancomycin HCl (Vancomycin Hcl 1000mg/20ml Vial) Confirm Administered Dose 50 mg .ROUTE .STK-MED ONE Stop: 03/23/21 13:23 Last Admin: 03/23/21 13:51 Dose: 1,000 mg Documented by: [id number] Medical Decision Making Differential Diagnosis Differential diagnoses includes but is not limited to lumbar radiculopathy, muscle strain, facture, cauda equina, mass, and disc herniation. Medical Records Attestation: I reviewed the patient's medical records. Home Medications Current Medication List: was personally reviewed by me MDM Narrative This is a 70-year-old female who presents due to persistent low back pain status post surgery. I did discuss with Dr. Lorenzo the plan as he had already attempted a direct admission but was unable to do so due to lack of available bed space. Patient presented the emergency room. We discussed IV pain control down here, and he is already placing orders in the computer for an admission. He did not have any other specific orders to be added as he states he will placed in the computer. Patient hemodynamically stable in the emergency room. IV started in order to help control pain. Impression & Plan Back pain, S/P lumbar spinal fusion Discharge Plan Visit Data Chief Complaint: Back Injury/Pain Stated Complaint: BACK PAIN ED Provider: Celina Lyons Discharge Problem: Back pain, S/P lumbar spinal fusion Patient Disposition: Admitted As Inpatient Discharge Instructions Interventions: ED Discharge Assessment Last Done: 03/21/21 13:54 Discharge Problem: Back pain Qualifiers: Back pain location: low back pain Chronicity: acute Back pain laterality: bilateral Sciatica presence: with sciatica Sciatica laterality: sciatica of left side Qualified Code(s): M54.42 - Lumbago with sciatica, left side
[2021-03-21] MEDS: HYDROmorphone INJ 0.5 MG/0.5 ML SYR IV PRN (12:40)
[2021-03-21] MEDS ORDERED: SOD PHOSPHATE/SOD BIPHOSPHATE ENEMA 132 ML BTL PR PRN (14:19)
[2021-03-21] MEDS ORDERED: diphenhydrAMINE Capsule 25 MG CAP PO PRN (14:19)
[2021-03-21] MEDS ORDERED: MAGNESIUM HYDROXIDE SUSP 30 ML UDC PO PRN (14:19)
[2021-03-21] MEDS ORDERED: METOCLOPRAMIDE HCL INJ 5 MG/ML 2 ML VIAL IV PRN (14:19)
[2021-03-21] MEDS ORDERED: ONDANSETRON INJ 2 MG/ML 2 ML VIAL IV PRN (14:19)
[2021-03-21] MEDS ORDERED: ACETAMINOPHEN 1,000 MG/100 ML VIAL IV PRN (14:19)
[2021-03-21] MEDS ORDERED: HYDROmorphone INJ 1 MG/ML SYRINGE IV PRN (14:19)
[2021-03-21] MEDS ORDERED: PROMETHAZINE HCL 12.5 MG in SODIUM CHLORIDE 0.9% 50 ML IV PRN (14:19)
[2021-03-21] MEDS ORDERED: LORazepam 0.5 MG/1 ML VIAL IV PRN (14:19)
[2021-03-21] MEDS ORDERED: ONDANSETRON 4 MG OD TAB PO PRN (14:19)
[2021-03-21] MEDS ORDERED: ALUMINUM/MAGNESIUM SUSP 30 ML UDC PO PRN (14:19)
[2021-03-21] MEDS ORDERED: HYDROmorphone INJ 0.5 MG/0.5 ML SYR IV PRN (14:19)
[2021-03-21] MEDS ORDERED: NALOXONE HCL 0.4 MG/1 ML VIAL/CARP IV PRN (14:19)
[2021-03-21] MEDS ORDERED: traMADol HCL 50 MG TABLET PO PRN (14:19)
[2021-03-21] MEDS ORDERED: hydrOXYzine HCl 25 MG TAB PO PRN (14:19)
[2021-03-21] MEDS: GABAPENTIN 300 MG CAP PO SCH ×2 (14:35→21:14)
[2021-03-21] MEDS: amLODIPine BESYLATE 5 MG TAB PO SCH (16:10)
--- NOTE | 2021-03-21 16:45 | Ultrasound Report ---
BILATERAL LOWER EXTREMITY VENOUS DOPPLER CLINICAL HISTORY: Left groin pain. COMPARISON STUDY: Left lower extremity venous Doppler ultrasound June 05, 2019. Bilateral lower extremity venous Doppler ultrasound May 30, 2017. TECHNIQUE: Sonography of the deep venous system of the bilateral lower extremities was performed. Co mpression and augmentation were evaluated. FINDINGS: The bilateral common femoral, superficial femoral and popliteal veins were compressible. A ugmentation was normal. Flow was shown within the deep calf vessels. IMPRESSION: No evidence of deep venous thrombus within the bilateral lower extremities. ACT 112: Negative or not required by law. Electronically signed by: Dylan Saleh M.D. 03/21/2021 4:43 PM
[2021-03-21] MEDS: LACTATED RINGER'S 1,000 ML IV SCH (17:13)
[2021-03-21] MEDS: ACETAMINOPHEN 500 MG TAB PO PRN (17:30)
[2021-03-21] MEDS: oxyCODONE HCL IR 5 MG TAB (IMMEDIATE RELEASE) PO PRN (20:44)
[2021-03-21] MEDS: DOCUSATE SODIUM/SENNA 50/8.6MG TAB PO SCH (20:44)
--- NOTE | 2021-03-21 21:51 | Magnetic Resonance Report ---
MR lumbar spine wo con CLINICAL HISTORY: leg pain TECHNIQUE: Sagittal and axial T1, T2 and STIR images were obtained. COMPARISON STUDY: February 18, 2021 OBSERVATIONS: No acute fracture or dislocation seen. Normal lumbar lordosis is preserved. Interval extension of transpedicular screws and fixating plates to the L2 and L3 level, previously or thopedic hardware where visualized within S1, L5 and L4 levels. Transpedicular screws within L5 had b een removed. L1-2: Intervertebral disc spaces preserved. Disc desiccation is seen. Interval placement of transpedi cular screws within L2 vertebra is seen, creating magnetic susceptibility artifact, unclear if causin g central canal stenosis at the level of L2. Within level of the disc neuroforamina and central canal at patent. L2-3: Intervertebral disc space is preserved. Disc desiccation is seen. Status post laminectomy. Cent ral canal is patulous. Moderate to severe narrowing of bilateral neuroforamina are seen. L3-4: Intervertebral disc space is preserved. Disc desiccation is seen. Hypertrophic changes of the l eft facet joints are seen causing mild stenosis of the central canal. Moderate stenosis of bilateral neuroforamina are seen at this level. L4-5: Central canal is patulous, mild narrowing of the right neural foramina. Left neuroforamina is p atent. L5-S1: Intervertebral disc space narrowing. Central canal is patent. Mild narrowing of bilateral neur al foramina. The conus medullaris and cauda equina appear normal. IMPRESSION: 1. Interval extension of orthopedic hardware to the L2 and L3 level. Transpedicular screws from L5 t he removed. ACT 112: Negative or not required by law. The above report was generated using voice recognition software. It may contain grammatical, syntax o r spelling errors. Electronically signed by: Meghan Cristina DO 03/21/2021 9:49 PM
[2021-03-22] MEDS: HYDROmorphone INJ 0.5 MG/0.5 ML SYR IV PRN (02:58)
[2021-03-22] MEDS: oxyCODONE HCL IR 5 MG TAB (IMMEDIATE RELEASE) PO PRN ×4 (04:55→21:06)
[2021-03-22] MEDS: LACTATED RINGER'S 1,000 ML IV SCH ×2 (06:17→18:05)
[2021-03-22] MEDS: ACETAMINOPHEN 500 MG TAB PO PRN ×2 (06:20→21:19)
[2021-03-22] MEDS: PANTOprazole 40 MG TAB PO SCH (09:03)
[2021-03-22] MEDS: amLODIPine BESYLATE 5 MG TAB PO SCH (09:51)
[2021-03-22] MEDS: GABAPENTIN 300 MG CAP PO SCH (09:51)
--- NOTE | 2021-03-22 10:03 | History & Physical Report ---
Date of Service March 22, 2021 Assessment & Plan (1) Acute radicular low back pain: Admission and Anticipated Discharge Date Admission Date: March 21, 2021 Long discussion today reviewing her MRI findings and clinical presentation. I am recommending exploration I&D lumbar spine tomorrow. To make her n.p.o. after midnight. Risk benefits pros cons alternatives were outlined in detail. Patient understands and agrees. History of Present Illness Chief Complaint: Back and left leg pain Primary Care Provider: Delia Ortiz MD This is a 62-year-old female known to me status post lumbar decompression fusion. Unfortunately the past week she has had a decline in status with worsening left buttock and groin pain radiating down the anterior thigh on the left. Is not responded to medication. It is become debilitating in nature. She has been admitted for pain control and an urgent MRI lumbar spine. Upon review of the MRI I do not appreciate any gross neural compression but I am concerned that she has not responded to normal postop medication and has not improved. She has no right lower extremity pain. She has no loss of bowel bladder control. She is able to ambulate. Allergies Allergy/AdvReac Type Severity Reaction Status Date / Time amoxicillin [From Augmentin] Allergy Unknown Unknown Verified 03/21/21 13:03 bupropion [From Zyban] Allergy Unknown Stroke-like Verified 03/21/21 13:03 symptoms (Leg/arm numbness) erythromycin base Allergy Unknown Unknown Verified 03/21/21 13:03 oxycodone Allergy Unknown Unknown Verified 03/21/21 13:03 rivaroxaban [From Xarelto] AdvReac Severe Headache Verified 03/21/21 13:03 cephalexin [From Keflex] AdvReac Unknown Diarrhea, Verified 03/21/21 13:03 upset stomach, headache ciprofloxacin AdvReac Unknown Nausea, Verified 03/21/21 13:03 dyspepsia clarithromycin [From Biaxin] AdvReac Unknown GI, Verified 03/21/21 13:03 headache clavulanic acid AdvReac Unknown Diarrhea, Verified 03/21/21 13:03 [From Augmentin] upset stomach, headache lisinopril AdvReac Unknown Headache Verified 03/21/21 13:03 morphine AdvReac Unknown Hallucinati Verified 03/21/21 13:03 ons NSAIDS (Non-Steroidal AdvReac Unknown GI Verified 03/21/21 13:03 Anti-Inflamma dypepsia (tolerates Celebrex) propoxyphene [From Darvon] AdvReac Unknown Hallucinations, Verified 03/21/21 13:03 N/V steroid AdvReac Severe SOB, Uncoded 03/21/21 13:03 tachycardia, elevates BP (with oral + injectable) Home Medications Medication Instructions Recorded Confirmed Type lorazepam 0.5 mg tablet 0.5 mg BUCCAL HS PRN #30 tab 01/21/21 03/21/21 Rx pantoprazole 40 mg PO QAM 01/30/21 03/21/21 History oxycodone 5 mg PO Q6H PRN #30 tab 03/11/21 03/21/21 Rx ondansetron 4 mg disintegrating 4 mg PO Q6H PRN #30 tab 03/16/21 03/21/21 Rx tablet gabapentin 300 mg PO QID 03/21/21 03/21/21 History ibuprofen [Advil] 600 mg PO QID 03/21/21 03/21/21 History sennosides [Senokot] 8.6 mg PO Q2D 03/21/21 03/21/21 History Past Med/Surg History Medical History Arthritis Cancer BCC (Lip) DVT (deep venous thrombosis) Remote LLE DVT (unknown etiology), previous anticoagulation since discontinued, no issues since GERD (gastroesophageal reflux disease) controlled History of cystocele History of Lyme disease 09/2019 s/p treatment Hypertension MVP (mitral valve prolapse) Remote hx per patient > no mitral valve disease noted per 03/20/18 echo Obesity Pelvic relaxation Prediabetes Surgical History H/O foot surgery H/O shoulder surgery H/O vaginal surgery Vaginal sling operation for stress incontinence H/O: hysterectomy History of back surgery L4-S1 fusion (2008) History of colonoscopy History of cystocele Anterior Colporrhaphy, repair of cystocele History of esophagogastroduodenoscopy (EGD) Hx of tooth extraction Family History Family/Other Heart disease Stroke Denies family history of Ovarian cancer Prostate cancer Myocardial infarction Breast cancer Colorectal cancer Social History Smoking Status: Former smoker Second Hand Exposure: No; Do You Dip or Chew Tobacco: No; Tobacco Cessation Education Requested by Patient: No Hx Alcohol Use: Yes Alcohol type: hard liquor Hx Substance Use: No Preferred Language: Frisian Communication Ability: Effective Visual Impairment: No Limitations Hearing Ability: Normal Telehealth Coordinator Required: No Beliefs That Will Affect Care: None marital status: Current Living Situation: Family Current Living Situation Comment: Lives with son/granddaughter current occupational status: retired Other Information That Helps Us Care for You: No Feels Safe at Home: Yes Safety Concerns: Feels Safe At This Time Childhood Exposure to Second-Hand Smoke: Yes Dental Care, Regularly: Yes Physical Activity Frequency: Daily Physical Activity Frequency Comment: regularly, walking Seatbelt Use: always Sunscreen Use: Yes Assistive Devices: None Physical Exam Physical Exam: On exam she is obvious distress. Incision is healing appropriately. She is no gross strength deficits but tenderness palpation left sciatic notch. Negative logroll. Sensory deficits to left anterior thigh compared to the right. Results & Data ([facility]) Vital Signs (Past 12 Hours) Vital Signs Temp Pulse Resp BP Pulse Ox 03/22/21 08:03 36.8 C 72 18 138/88 96 03/21/21 22:52 36.7 C 77 18 131/83 95 Code Status & VTE Plan VTE Prophylaxis Plan VTE Prophylaxis will be ordered: Yes
[2021-03-22] MEDS: LORazepam 0.5 MG TAB PO PRN (11:41)
[2021-03-22] MEDS: GABAPENTIN 400 MG CAP PO SCH ×3 (13:06→21:07)
[2021-03-22] MEDS: DOCUSATE SODIUM/SENNA 50/8.6MG TAB PO SCH (21:06)
[2021-03-22] MEDS: CYCLOBENZAPRINE HCL 10 MG TAB PO PRN (21:06)
[2021-03-23] MEDS: oxyCODONE HCL IR 5 MG TAB (IMMEDIATE RELEASE) PO PRN ×2 (05:19→21:58)
[2021-03-23] MEDS: GABAPENTIN 400 MG CAP PO SCH ×4 (05:31→21:54)
[2021-03-23] MEDS: LORazepam 0.5 MG TAB PO PRN (05:35)
[2021-03-23] MEDS ORDERED: HYDROmorphone INJ 2 MG/ML SYR/VIAL ONE (08:37)
[2021-03-23] MEDS: LACTATED RINGER'S 1,000 ML IV SCH (09:07)
[2021-03-23] MEDS: PANTOprazole 40 MG TAB PO SCH (09:08)
[2021-03-23] MEDS: amLODIPine BESYLATE 5 MG TAB PO SCH (09:08)
[2021-03-23] MEDS ORDERED: MIDAZOLAM HCL 1 MG/ML 2ML VIAL ONE (11:09)
[2021-03-23] MEDS ORDERED: GLYCOPYRROLATE 0.2 MG/ML VIAL ONE ×2 (11:09)
[2021-03-23] MEDS ORDERED: NEOSTIGMINE METHYLSULFATE 1 MG/ML 10ML VIAL ONE (11:09)
[2021-03-23] MEDS ORDERED: DEXAMETHASONE SOD INJ 4 MG/ML VIAL ONE ×3 (11:09→13:36)
[2021-03-23] MEDS ORDERED: LARYING-O-JET KIT (LTA) ONE (11:09)
[2021-03-23] MEDS ORDERED: ROCURONIUM BROMIDE 10 MG/ML 5 ML VIAL IV ONE (11:09)
[2021-03-23] MEDS ORDERED: LIDOCAINE 2% 2 ML VIAL/AMP(20MG/ML) INFIL ONE (11:09)
[2021-03-23] MEDS ORDERED: PROPOFOL IV EMULSION 10 MG/ML 20 ML VIAL IV ONE (11:09)
[2021-03-23] MEDS ORDERED: ONDANSETRON INJ 2 MG/ML 2 ML VIAL ONE ×2 (11:09)
[2021-03-23] MEDS ORDERED: bisacodyL 10 MG SUPP PR PRN (11:22)
--- NOTE | 2021-03-23 11:28 | Anesthesiology Consultation ---
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 History Surgery Operation Date: 03/23/21 10:20 Proposed Procedures p Incision and Drainage Exploration Lumbar Spine - César Lorenzo DO Height/Weight Height: 5 ft 5 in Weight: 82 kg Allergies Allergy/AdvReac Type Severity Reaction Status Date / Time amoxicillin [From Augmentin] Allergy Unknown Unknown Verified 03/21/21 13:03 bupropion [From Zyban] Allergy Unknown Stroke-like Verified 03/21/21 13:03 symptoms (Leg/arm numbness) erythromycin base Allergy Unknown Unknown Verified 03/21/21 13:03 oxycodone Allergy Unknown Unknown Verified 03/21/21 13:03 rivaroxaban [From Xarelto] AdvReac Severe Headache Verified 03/21/21 13:03 cephalexin [From Keflex] AdvReac Unknown Diarrhea, Verified 03/21/21 13:03 upset stomach, headache ciprofloxacin AdvReac Unknown Nausea, Verified 03/21/21 13:03 dyspepsia clarithromycin [From Biaxin] AdvReac Unknown GI, Verified 03/21/21 13:03 headache clavulanic acid AdvReac Unknown Diarrhea, Verified 03/21/21 13:03 [From Augmentin] upset stomach, headache lisinopril AdvReac Unknown Headache Verified 03/21/21 13:03 morphine AdvReac Unknown Hallucinati Verified 03/21/21 13:03 ons NSAIDS (Non-Steroidal AdvReac Unknown GI Verified 03/21/21 13:03 Anti-Inflamma dypepsia (tolerates Celebrex) propoxyphene [From Darvon] AdvReac Unknown Hallucinations, Verified 03/21/21 13:03 N/V steroid AdvReac Severe SOB, Uncoded 03/21/21 13:03 tachycardia, elevates BP (with oral + injectable) Medications Home Medications Medication Instructions Recorded Confirmed Last Taken lorazepam 0.5 mg tablet 0.5 mg BUCCAL HS PRN #30 tab 01/21/21 03/21/21 03/08/21 20:00 pantoprazole 40 mg PO QAM 01/30/21 03/21/21 03/20/21 oxycodone 5 mg PO Q6H PRN #30 tab 03/11/21 03/21/21 03/21/21 08:00 ondansetron 4 mg disintegrating 4 mg PO Q6H PRN #30 tab 03/16/21 03/21/21 Unknown tablet gabapentin 300 mg PO QID 03/21/21 03/21/21 03/21/21 08:00 ibuprofen [Advil] 600 mg PO QID 03/21/21 03/21/21 03/20/21 sennosides [Senokot] 8.6 mg PO Q2D 03/21/21 03/21/21 03/20/21 Active Medications Generic Name Dose Route Start Last Admin Trade Name Freq PRN Reason Stop Dose Admin Acetaminophen 1,000 mg 03/21/21 14:19 03/22/21 21:19 Acetaminophen 500 Mg Tab PO 04/20/21 14:18 1,000 mg Q8H PRN Administration MILD Pain Scale 1,2,3 & Pre PT Amlodipine Besylate 5 mg 03/22/21 09:00 03/23/21 09:08 Amlodipine Besylate 5 Mg Tab PO 04/21/21 08:59 5 mg QAM ANUSHKA Administration Cyclobenzaprine HCl 10 mg 03/22/21 10:05 03/22/21 21:06 Cyclobenzaprine Hcl 10 Mg Tab PO 04/21/21 10:04 10 mg Q6 PRN Administration Muscle Spasm Gabapentin 400 mg 03/22/21 13:00 03/23/21 05:31 Gabapentin 400 Mg Cap PO 04/21/21 12:59 400 mg QID ANUSHKA Administration Hydromorphone HCl 0.5 mg 03/21/21 11:27 03/22/21 02:58 Hydromorphone Inj 0.5 Mg/0.5 Ml Syr IV 04/04/21 11:26 0.5 mg Q15M PRN Administration Pain Hydromorphone HCl 0.5 mg 03/21/21 14:19 03/21/21 23:26 Hydromorphone Inj 0.5 Mg/0.5 Ml Syr IV 04/04/21 14:18 0.5 mg Q3H PRN Administration MOD pain (scale 4-6) & Pre PT Lactated Ringer's 1,000 mls @ 75 mls/hr 03/21/21 14:19 03/23/21 09:07 Lr IV 04/20/21 14:18 75 mls/hr .[id number] ANUSHKA Administration Lorazepam 0.5 mg 03/21/21 14:19 03/23/21 05:35 Lorazepam 0.5 Mg Tab PO 04/20/21 14:18 0.5 mg Q8H PRN Administration sedation/anxiety Oxycodone HCl 5 - 10 mg 03/21/21 14:19 03/23/21 05:19 Oxycodone Hcl Ir 5 Mg Tab (Immediate Release) PO 04/04/21 14:18 5 mg Q4H PRN Administration mod to severe pain Pantoprazole Sodium 40 mg 03/22/21 09:00 03/23/21 09:08 Pantoprazole 40 Mg Tab PO 04/21/21 08:59 40 mg QAM ANUSHKA Administration Senna/Docusate Sodium 2 tab 03/21/21 21:00 03/22/21 21:06 Docusate Sodium/Senna 50/8.6mg Tab PO 04/20/21 20:59 2 tab HS ANUSHKA Administration NPO Date Last Intake of Fluids: 03/23/21 Time Last Intake of Fluids: 09:10 Last Intake of Fluids Comment: sip with medication Date Last Intake of Solids: 03/22/21 Time Last Intake of Solids: 19:00 Past Medical History Medical History Arthritis Cancer BCC (Lip) DVT (deep venous thrombosis) Remote LLE DVT (unknown etiology), previous anticoagulation since discontinued, no issues since GERD (gastroesophageal reflux disease) controlled History of cystocele History of Lyme disease 09/2019 s/p treatment Hypertension MVP (mitral valve prolapse) Remote hx per patient > no mitral valve disease noted per 03/20/18 echo Obesity Pelvic relaxation Prediabetes Past Family History Family History Family/Other Heart disease Stroke Denies family history of Ovarian cancer Prostate cancer Myocardial infarction Breast cancer Colorectal cancer Past Surgical History Surgical History H/O foot surgery H/O shoulder surgery H/O vaginal surgery Vaginal sling operation for stress incontinence H/O: hysterectomy History of back surgery L4-S1 fusion (2008) History of colonoscopy History of cystocele Anterior Colporrhaphy, repair of cystocele History of esophagogastroduodenoscopy (EGD) Hx of tooth extraction Social History Smoking Status: Former smoker Do You Dip or Chew Tobacco: No Hx Alcohol Use: Yes Alcohol type: hard liquor alcohol intake frequency: a few times a week Hx Substance Use: No substance use type: marijuana Substance Use Type Other:: Medical marijuana (card)- oral and topical (not using routinely) Physical Exam Vital Signs Last Vital Signs Temp 98.6 F 03/23/21 08:07 Pulse 74 03/23/21 08:07 Resp 16 03/23/21 08:07 BP 145/91 H 03/23/21 08:07 Pulse Ox 96 03/23/21 08:07 Testing Electrocardiogram Date: 02/09/21 Sinus rhythm with frequent Premature ventricular complexes in a pattern of bigeminy, rate [address] and T wave abnormality Abnormal ECG When compared with ECG of 20-MAR-2018 06:30, Premature ventricular complexes are now Present Nonspecific T wave abnormality now evident in Anterior leads Confirmed by Delfino Herrera ([id number]) on 02/10/2021 7:21:17 AM Chest X-Ray Date: 11/26/20 Findings: + NAD
--- NOTE | 2021-03-23 11:53 | History & Physical Bridge Note ---
Date of Service March 23, 2021 History & Physical Bridge Note I have examined the patient, reviewed the History & Physical and in the interval since the performance of the History & Physical I have noted the following changes of clinical significance: no changes noted Exploration and I&D of the lumbar spine
[2021-03-23] MEDS ORDERED: ONDANSETRON INJ 2 MG/ML 2 ML VIAL IV PRN ×2 (12:27→16:37)
[2021-03-23] MEDS ORDERED: HYDROmorphone INJ 1 MG/ML SYRINGE IV PRN (12:27)
[2021-03-23] MEDS ORDERED: fentaNYL citrate 100 MCG/2 ML VIAL IV PRN (12:27)
[2021-03-23] MEDS ORDERED: ATROPINE SULFATE 0.1 MG/ML 10ML SYR IV PRN (12:27)
[2021-03-23] MEDS ORDERED: ePHEDrine sulfate 50 MG/ML AMP IV PRN (12:27)
[2021-03-23] MEDS ORDERED: ceFAZolin 2,000 MG/15 ML IV PUSH IV ONE (12:32)
[2021-03-23] MEDS ORDERED: GENTAMICIN SULFATE 40 MG/ML 2 ML VIAL ONE (13:22)
[2021-03-23] MEDS ORDERED: VANCOMYCIN HCL 1000MG/20ML VIAL ONE (13:22)
[2021-03-23] MEDS ORDERED: PHENYLEPHRINE 100MCG/ML 5ML SYR ONE (13:36)
[2021-03-23] MEDS ORDERED: ePHEDrine sulfate 50 MG/ML AMP ONE (13:36)
[2021-03-23] MEDS ORDERED: SODIUM CHLORIDE 0.9% INJ 10 ML VIAL ONE (13:37)
[2021-03-23] MEDS ORDERED: FLOSEAL HEMOSTATIC MATRIX 10ML TOP ONE (13:47)
[2021-03-23] MEDS ORDERED: BUPIVACAINE/EPINEPHRINE 0.5% MPF 1:200,000 30 ML VIAL INJ ONE (13:51)
[2021-03-23] MEDS ORDERED: ceFAZolin 1000MG 1,000 MG/7.5 ML SYR IV ONE (13:52)
--- NOTE | 2021-03-23 14:18 | Operative Report ---
Post Operative Report Pre & Post Diagnosis Operation Date: 03/23/21 10:20 Pre-Op Diagnosis: Acute radicular low back pain Post-Op Diagnosis: Acute radicular low back pain Broken L2 pedicle I identified the patient and participated in the time-out.: Yes Procedure Operation Date: 03/23/21 10:20 Actual Procedures #1 evacuation of hematoma lumbar spine. #2 removal of instrumentation L2-L3 pedicle screws on the left. #3 revision decompression L2-3 L3-4. Surgeon César Lorenzo, Interactive Media Marketing Specialist Dinorah Dawson Estimated Blood Loss 50 Findings Consistent with Post-Op Diagnosis Specimens None Indications This is a 62-year-old female known to me status post of a decompression fusion. Postoperatively she began to experience worse radiculopathy on the left and after failing course of medical management elected undergo exploration of the lumbar spine to rule out nerve compression. Description of Procedure Patient met with identified informed consent obtained. Patient was then taken to the operative suite underwent a patient placed in a prone position injectable top Herb frame. All bony prominences well-padded eyes inspected to ensure no external pressure placed upon the. This point the lumbar spine was prepped and draped in a sterile fashion. Sharp dissection with assistance of Bovie cautery performed down to and exposing the decompressed bed from L2-L4. Hematoma was identified and evacuated. I then proceeded to move the hardware on the left which consisted of the L2 and L3 pedicle screws. I probed the pedicle screw hole. Did not appreciate any deficits. Then I performed a revision decompression complete facetectomy L2-3 L3-4 on the left to adequately expose the exiting L2 and L3 nerve roots which were the roots suspicious of contributing to her postoperative pain. I did appreciate at L2 evidence of a medial wall fracture with bone fragments projecting into the shoulder of the L2 root. The removed in their entirety. Inspected both nerves to ensure there is no longer any evidence of compression or irritation. Pedicle screw was then reinserted L2-L3 was compromised and the roxanne was reinserted and locked in position including a cross- link. I then placed 5 cc of stimulant beads impregnated with vancomycin and gentamicin throughout the incision. 15 round JEFE drain was inserted. Incision was then closed with 1 Vicryl the fascia 2-0 Vicryl subcutaneously and 4 Monocryl for final skin closure. Steri-Strip sterile dressings placed. Patient waken taken to PACU stable condition. Please note spinal cord monitoring was utilized at the procedure no changes noted. Lastly Dinorah Dawson was present at the entire surgery involved the patient positioning complex portions of the surgery and final skin closure. I attest to the content of the Intraoperative Record and any orders documented therein. Any exceptions are noted below.
--- NOTE | 2021-03-23 14:25 | Fluoroscopy Report ---
FL lumbar spine 2-3V CLINICAL HISTORY: I D/DECOMPRESSION/FUSION COMPARISON STUDY: 03/09/2021 FLUOROSCOPY TIME: 8 seconds. NUMBER OF FLUOROSCOPIC IMAGES: 2 FINDINGS: 2 intraoperative fluoroscopic spot images reveal postsurgical changes of discectomies inter body fusions at the L3-4, L4-5, and L5-S1 levels. There is posterior spinal fusion with pedicle screw s at the L2, L3, L4, and S1 levels. IMPRESSION: Intraoperative fluoroscopic spot images as described above. ACT 112: Negative or not required by law. Electronically signed by: Carson Suresh M.D. 03/23/2021 2:23 PM
--- NOTE | 2021-03-23 15:17 | Anesthesiology Progress Note ---
Date of Service March 23, 2021 Anesthesia Post Procedure Vital Signs Vital Signs: Temp Pulse Pulse Resp BP BP Pulse Ox 03/23/21 15:10 92 H 17 102/85 99 03/23/21 15:00 91 H 15 111/66 99 03/23/21 14:50 88 19 109/61 99 03/23/21 14:40 81 14 117/67 96 03/23/21 14:33 36.2 C L 83 14 119/64 96 03/23/21 12:38 36.9 C 98 H 18 157/79 H 96 03/23/21 08:07 37 C 74 16 145/91 H 96 03/22/21 23:35 36.9 C 95 H 18 107/64 93 03/22/21 17:09 36.6 C 84 18 134/68 93 Pain Intensity Left Groin: Pain Intensity: 8 Transfer of Care Handoff Completed per policy Notes Mental Status: alert / awake / arousable Patient Amnestic to Procedure: Yes Nausea / Vomiting: adequately controlled Pain: adequately controlled Airway Patency, RR, SpO2: stable & adequate BP & HR: stable & adequate Hydration State: stable & adequate Anesthetic Complications: no major complications apparent
[2021-03-23] MEDS ORDERED: ACETAMINOPHEN 1,000 MG/100 ML VIAL IV PRN (16:37)
[2021-03-23] MEDS ORDERED: NALOXONE HCL 0.4 MG/1 ML VIAL/CARP IV PRN (16:37)
[2021-03-23] MEDS ORDERED: hydrOXYzine HCl 25 MG TAB PO PRN (16:37)
[2021-03-23] MEDS ORDERED: FAMOTIDINE 20 MG TAB PO PRN (16:37)
[2021-03-23] MEDS ORDERED: diphenhydrAMINE Capsule 25 MG CAP PO PRN (16:37)
[2021-03-23] MEDS ORDERED: LACTATED RINGER'S 1,000 ML IV SCH (16:37)
[2021-03-23] MEDS ORDERED: LORazepam 0.5 MG/1 ML VIAL IV PRN (16:37)
[2021-03-23] MEDS ORDERED: DO NOT ADMINISTER PNEUMOCOCCAL VACCINE PRN (16:37)
[2021-03-23] MEDS ORDERED: MAGNESIUM HYDROXIDE SUSP 30 ML UDC PO PRN (16:37)
[2021-03-23] MEDS ORDERED: SOD PHOSPHATE/SOD BIPHOSPHATE ENEMA 132 ML BTL PR PRN (16:37)
[2021-03-23] MEDS ORDERED: METOCLOPRAMIDE HCL INJ 5 MG/ML 2 ML VIAL IV PRN (16:37)
[2021-03-23] MEDS ORDERED: PROMETHAZINE HCL 12.5 MG in SODIUM CHLORIDE 0.9% 50 ML IV PRN (16:37)
[2021-03-23] MEDS ORDERED: ALUMINUM/MAGNESIUM SUSP 30 ML UDC PO PRN (16:37)
[2021-03-23] MEDS ORDERED: DO NOT ADMINISTER FLU VACCINE PRN (16:37)
[2021-03-23] MEDS ORDERED: ONDANSETRON 4 MG OD TAB PO PRN (16:37)
[2021-03-23] MEDS: ACETAMINOPHEN 500 MG TAB PO PRN (19:39)
[2021-03-23] MEDS: DOCUSATE SODIUM/SENNA 50/8.6MG TAB PO SCH (21:54)
[2021-03-23] MEDS: CYCLOBENZAPRINE HCL 10 MG TAB PO PRN (21:57)
[2021-03-23] MEDS: ceFAZolin 2000MG 2,000 MG/15 ML SYR IV SCH (21:58)
[2021-03-24] MEDS: LORazepam 0.5 MG TAB PO PRN ×2 (00:01→21:52)
[2021-03-24 06:04] LABS: Hematocrit (blood only) 30.2 % (37-47); Hemoglobin 10.2 g/dL (12.0-16.0); Immature Granulocytes # (auto) 0.02 K/uL (0.00-0.02); Immature Granulocytes % (auto) 0.2 %; Lymphocytes # (auto) 1.36 K/uL (1.2-3.4); Lymphocytes % (auto) 13.5 %; Mean Corpuscular Hemoglobin 31.2 pg (25-34); Mean Corpuscular Hgb Conc 33.8 g/dL (32-36); Mean Corpuscular Volume 92.4 fL (80-100); Mean Platelet Volume 9.1 fL (7.4-10.4); Monocytes # (auto) 0.63 K/uL (0.11-0.59); Monocytes % (auto) 6.3 %; Neutrophils # (auto) 8.03 K/uL (1.4-6.5); Platelet Count 303 K/uL (130-400); RDW Coefficient of Variation 12.7 % (11.5-14.5); Red Blood Count 3.27 M/uL (4.2-5.4); White Blood Count 10.04 K/uL (4.8-10.8)
[2021-03-24] MEDS: ceFAZolin 2000MG 2,000 MG/15 ML SYR IV SCH (06:04)
[2021-03-24] MEDS: POLYETHYLENE (MIRALAX) 17 GM PACK PO SCH ×4 (06:04→21:52)
[2021-03-24] MEDS: GABAPENTIN 400 MG CAP PO SCH (06:04)
[2021-03-24] MEDS: ACETAMINOPHEN 500 MG TAB PO PRN ×3 (06:06→21:52)
[2021-03-24 06:34] LABS: BUN Creatinine Ratio 17.9 (10-20); Calcium 8.5 mg/dl (8.5-10.1); Est GFR (African American) 96.5 ml/min; Est GFR (Non-African American) 83.2 ml/min
[2021-03-24] MEDS: PANTOprazole 40 MG TAB PO SCH (08:40)
[2021-03-24] MEDS: amLODIPine BESYLATE 5 MG TAB PO SCH (08:40)
--- NOTE | 2021-03-24 09:38 | Orthopedic Progress Note ---
Date of Service March 24, 2021 Assessment & Plan (1) Acute radicular low back pain: Admission and Anticipated Discharge Date Admission Date: March 21, 2021 This time we will continue physical therapy. She is to wear her brace when walking in the halls. We will monitor her JEFE operatively discharge home later this week. Subjective Patient's back pain is controlled leg symptoms markedly improved. Physical Exam Physical Exam: On exam she is in the chair at the bedside. She appears quite comfortable. She has good strength testing. Results & Data ([facility]) Vital Signs (Past 12 Hours) Vital Signs Temp Pulse Resp BP BP Pulse Ox 03/24/21 06:40 36.5 C 77 16 113/76 97 03/24/21 03:30 37 C 89 16 98/62 L 94 03/23/21 23:00 36.8 C 83 16 116/68 94
[2021-03-24] MEDS: GABAPENTIN 300 MG CAP PO SCH ×2 (14:02→20:55)
[2021-03-24] MEDS: CYCLOBENZAPRINE HCL 10 MG TAB PO PRN (19:26)
[2021-03-24] MEDS: DOCUSATE SODIUM/SENNA 50/8.6MG TAB PO SCH (20:55)
[2021-03-25] MEDS: ACETAMINOPHEN 500 MG TAB PO PRN ×2 (04:05→21:24)
[2021-03-25] MEDS: CYCLOBENZAPRINE HCL 10 MG TAB PO PRN ×2 (04:06→21:24)
[2021-03-25] MEDS: POLYETHYLENE (MIRALAX) 17 GM PACK PO SCH ×3 (04:06→18:10)
[2021-03-25] MEDS: oxyCODONE HCL IR 5 MG TAB (IMMEDIATE RELEASE) PO PRN ×3 (08:42→23:04)
[2021-03-25] MEDS: PANTOprazole 40 MG TAB PO SCH (08:44)
[2021-03-25] MEDS: GABAPENTIN 300 MG CAP PO SCH ×3 (08:44→21:24)
[2021-03-25] MEDS: amLODIPine BESYLATE 5 MG TAB PO SCH (08:44)
--- NOTE | 2021-03-25 10:15 | Orthopedic Progress Note ---
Date of Service March 25, 2021 Assessment & Plan (1) Acute radicular low back pain: Admission and Anticipated Discharge Date Admission Date: March 21, 2021 At this time we will continue physical therapy monitor JEFE output anticipate discharge home tomorrow. Subjective Patient's back pain is controlled leg symptoms improved. She is tolerating physical therapy well. Physical Exam Physical Exam: On exam she is in the chair at the bedside is good strength testing. Results & Data ([facility]) Vital Signs (Past 12 Hours) Vital Signs Temp Pulse Resp BP BP Pulse Ox 03/25/21 07:00 36.7 C 79 16 118/72 94 03/24/21 22:20 36.7 C 68 16 117/76 97
[2021-03-25] MEDS: CeleBREX 200 MG CAP PO SCH (11:28)
[2021-03-25] MEDS ORDERED: bisacodyL 10 MG SUPP PR PRN (14:21)
[2021-03-25] MEDS: DOCUSATE SODIUM/SENNA 50/8.6MG TAB PO SCH (21:25)
[2021-03-26] MEDS: POLYETHYLENE (MIRALAX) 17 GM PACK PO SCH ×2 (00:14→06:24)
[2021-03-26] MEDS: ACETAMINOPHEN 500 MG TAB PO PRN (06:22)
--- NOTE | 2021-03-26 07:51 | Discharge Summary ---
Date of Service March 26, 2021 Admission HPI Per Admitting Provider This is a 62-year-old female known to me status post lumbar decompression fusion. Unfortunately the past week she has had a decline in status with worsening left buttock and groin pain radiating down the anterior thigh on the left. Is not responded to medication. It is become debilitating in nature. She has been admitted for pain control and an urgent MRI lumbar spine. Upon review of the MRI I do not appreciate any gross neural compression but I am concerned that she has not responded to normal postop medication and has not improved. She has no right lower extremity pain. She has no loss of bowel bladder control. She is able to ambulate. Principal Diagnosis Lumbar radiculopathy Discharge Data Allergies Allergy/AdvReac Type Severity Reaction Status Date / Time amoxicillin [From Augmentin] Allergy Unknown Unknown Verified 03/21/21 13:03 bupropion [From Zyban] Allergy Unknown Stroke-like Verified 03/21/21 13:03 symptoms (Leg/arm numbness) erythromycin base Allergy Unknown Unknown Verified 03/21/21 13:03 oxycodone Allergy Unknown Unknown Verified 03/21/21 13:03 rivaroxaban [From Xarelto] AdvReac Severe Headache Verified 03/21/21 13:03 cephalexin [From Keflex] AdvReac Unknown Diarrhea, Verified 03/21/21 13:03 upset stomach, headache ciprofloxacin AdvReac Unknown Nausea, Verified 03/21/21 13:03 dyspepsia clarithromycin [From Biaxin] AdvReac Unknown GI, Verified 03/21/21 13:03 headache clavulanic acid AdvReac Unknown Diarrhea, Verified 03/21/21 13:03 [From Augmentin] upset stomach, headache lisinopril AdvReac Unknown Headache Verified 03/21/21 13:03 morphine AdvReac Unknown Hallucinati Verified 03/21/21 13:03 ons NSAIDS (Non-Steroidal AdvReac Unknown GI Verified 03/21/21 13:03 Anti-Inflamma dypepsia (tolerates Celebrex) propoxyphene [From Darvon] AdvReac Unknown Hallucinations, Verified 03/21/21 13:03 N/V steroid AdvReac Severe SOB, Uncoded 03/21/21 13:03 tachycardia, elevates BP (with oral + injectable) Consultations 03/21/21 11:28 ED Decision to Admit Stat Procedures Performed Operation Date: 03/23/21 10:20 Actual Procedures p Lumber Revision, Application of Stimulan Beads(Not Applicable) - César Lorenzo DO s Incision and Drainage Exploration Lumbar Spine(Not Applicable) - César Lorenzo DO Ordered Studies 03/21/21 14:19 MR lumbar spine wo con Routine US venous doppler LE BI Routine 03/23/21 12:30 [place] lumbar spine 2-3V Routine Hospital Course (1) Acute radicular low back pain: Patient was admitted Tuesday by myself for continued lumbar radiculitis. She underwent exploration of her lumbar fusion on Tuesday tolerates well postop plan marked resolution of her symptoms. I did discover evidence of a particular fracture which contributed to her nerve pain. She stayed throughout the next few days in the hospital tolerating physical therapy JEFE drain decreasing probably. Excellent strength testing. Socially discharged home. Discharge instructions from the chart for further review. Total Time Total Time Spent Total Time Spent (In Minutes): 20 minutes Discharge Plan Discharge Items Patient Disposition: Home - Self-Care Reason For Visit: BACK AND LEG PAIN Discharge Diagnosis: Spinal stenosis with radiculopathy Activity: As commented below Non-emergency contact: Primary Care Provider Call non-emergency contact if: you have any medication questions Follow-up/Referrals: Delia Ortiz MD [Primary Care Provider] - Diet: Regular Addtl Attending Provider Instructions: ACTIVITY RECOMMENDATIONS: SELF CARE INSTRUCTIONS AFTER THORACIC/LUMBAR FUSIONS 1. You may walk to your tolerance. It is good exercise for your legs and back. Expect some back and intermittent leg aches and pains. 2. You may perform "counter-top" level activities (make a sandwich, adria with a project, etc.). 3. No bending or lifting of more than 10 pounds or back twisting of any nature (roll like a log when turning in bed). 4. You may ride in a car for 20-30 minutes at a time. No driving until after your first visit with your doctor. 5. Frequent changes of position and restricting sitting to 30 minutes at a time will help limit the amount of back spasms and stiffness you may experience. 6. You may discontinue the use of ambulatory aids (cane, crutches, etc.) once your strength and confidence allow. 7. You may surgical garment inspector the shower and let water strike your incision when you arrive home at least once daily. Do not take a tub bath, sit in a hot tub or go into a swimming pool until after your first recheck in the office. SPECIAL CARE INSTRUCTIONS: VERY IMPORTANT TO READ AND REVIEW A. Your surgical incision has been closed with a cosmetic suture under the skin that will dissolve in about 6 weeks. In 14 days, you can use a pair of clean scissors and cut the suture that is left outside of the skin at the ends of your incision. 1. The small skin tapes can be removed 7 days after surgery if they have not fallen off by that point. 2. You may keep the wound open to air as much as possible to promote healing after post-op day number 5 unless told otherwise by your doctor. 3. If you think the wound looks like it is becoming infected (redness or worsening drainage) and/or you are experiencing fever, chill or worsening back pain and muscle spasms, contact the office so that we may evaluate you as soon as possible. B. Complications are uncommon, but please contact us if you have any signs or symptoms of: 1. wound infection (fever higher than 102.5 degrees F, redness, separation of wound, drainage, or increasing pain from the incision) 2. blood clots in legs (pain, swelling, redness and warmth in legs) 3. urinary tract infection (fever higher than 102.5 degrees F, burning upon urination or increased frequency of urination) 4. nerve problems (inability to walk on your toes or heels, numbness, loss of bowel or bladder control) 5. any other symptoms that concern you C. Please call the office at if you have any concerns or questions about your operation or recovery. D. No smoking! Smoking drastically decreases the chance of a solid fusion. E. Do not take any anti-inflammatory medications (Indocin, Advil, Motrin, Aspirin, Naprosyn, etc.) as these may inhibit the chance of a solid fusion. Tylenol is okay to take for pain. MANAGING PAIN AFTER SPINAL SURGERY 1. Narcotic medication is intended for short-term use and will be provided for surgical pain. Surgical pain usually lasts for a period of 4-6 weeks. Narcotic medication includes Percocet, Vicodin, Darvocet, Tylenol #3 or Lortab. 2. Longer-term pain is more appropriately treated with non-narcotic medication such as Tylenol ES. 3. Muscle spasm is not appropriately treated with narcotics. Muscle relaxers such as Soma, Flexeril or Skelaxin can be used along with Tylenol ES. 4. Remember that we all live with some "aches and pains". This is not unusual or uncommon after an injury or as we get older. a. Back pain is expected and may include muscle spasms for 4 to 6 weeks after surgery. The pain should gradually improve. If the pain worsens for no apparent reason, please contact the office. b. Intermittent leg pain may also be experienced and should not be concerned about unless it worsens for no apparent reason. If so, please contact the office. 5. We will provide appropriate medication within the normal guidelines of their prescribed use. We will also be very cautious and aware of potential abuse and extended duration of patients' medication needs. a. Pain medications are for your comfort and to assist with sleep and rest so that the tissue can heal. They are not provided in order to return to normal activity and should not be used through the day. To do so or worsening pain at night can result from ongoing tissue damage and development of tolerance to the prescribed medicine. 6. Please allow 2-3 days to process refills. Prescriptions will not be mailed but must be picked up at the office. FOLLOW UP VISIT: Keep your scheduled follow-up appointment. Any questions, please call the office at . Pending Studies at Discharge: No Stand-Alone Forms: [facility] [employer], Smoking Cessation Medications and DC Order Prescriptions: New tramadol 50 mg tablet 50 mg PO Q6H PRN (Reason: pain, moderate) Qty: 30 RF: 0 oxycodone 5 mg tablet 5 mg PO Q6H PRN (Reason: pain, severe) Qty: 30 RF: 0 Continued lorazepam 0.5 mg tablet 0.5 mg BUCCAL HS PRN (Reason: anxiety) Qty: 30 RF: 0 ondansetron 4 mg tablet,disintegrating 4 mg PO Q6H PRN (Reason: nausea and vomiting) Qty: 30 RF: 0 pantoprazole 40 mg tablet,delayed release (DR/EC) 40 mg PO QAM RF: 0 oxycodone 5 mg tablet 5 mg PO Q6H PRN (Reason: pain, severe) Qty: 30 RF: 0 gabapentin 300 mg capsule 300 mg PO QID RF: 0 sennosides [Senokot] 8.6 mg Tablet 8.6 mg PO Q2D RF: 0 Discontinued ibuprofen [Advil] 200 mg Tablet 600 mg PO QID RF: 0 Discharge Orders: Discharge Order (Routine); Ordered 03/26/21 Ordered By: César Lorenzo Admission Data Admit Date/Time: 03/21/21 11:47 Attending Provider: César Lorenzo Admit Provider: César Lorenzo Primary Care Provider: Delia Ortiz V. Other Providers: César Lorenzo ; [facility],Referral Center
[2021-03-26] MEDS: PANTOprazole 40 MG TAB PO SCH (08:08)
[2021-03-26] MEDS: amLODIPine BESYLATE 5 MG TAB PO SCH (08:08)
[2021-03-26] MEDS: CeleBREX 200 MG CAP PO SCH (08:09)
[2021-03-26] MEDS: GABAPENTIN 300 MG CAP PO SCH (08:09)
--- NOTE | 2021-04-03 09:37 | Coding Query ---
CODING QUERY To promote full compliance with coding requirements relating to patient care, provider participation is requested in all cases of bushing and broach operator uncertainty. Please assist us with the question(s) below: Coding Question(s): The Operative Report documents, "Broken L2 pedicle" and there is documentation of, "evacuation of hematoma lumbar spine". Please specify below, in your clinical opinion, regarding the diagnoses. BROKEN L2 PEDICLE ( x ) this is likely Complication from the previous procedure ( ) this is Not a Complication from procedure. Please specify below further: ( ) likely due to trauma ( ) likely due to other: Please Specify ( ) Other: Please Specify HEMATOMA LUMBAR SPINE ( x ) this is likely Complication from the previous procedure ( ) this is Not a Complication from procedure. Please specify below further: ( ) likely due to trauma ( ) likely due to other: Please Specify ( ) Other: Please Specify Physician's Response(s): Thank you Amparo Tubbs Principal Diagnosis: "that condition established after study, to be chiefly responsible for occasioning the admission of the patient to the hospital for care." Co-Existing Principal Diagnosis: "when two or more diagnoses equally meet the criteria for principal diagnosis as determined by the circumstances of admission, diagnostic work up, and/or therapy provided, and the Alphabetic Index, Tabular List, or another coding guideline does not provide sequencing direction, any one of the diagnoses may be sequenced first." "When the physician has documented what appears to be a current diagnosis in the body of the record, but has not included the diagnosis in the final diagnostic statement, the physician should be asked whether the diagnosis should be added." (Source [facility] 2 QTR90. p3-4) MTDD
== END 2021-03-26 10:43 | disposition home health service (06) | DRG 908 ==
LOC: ED 10:34 → 3W 11:47